=== PATIENT | male | born 1940 | race Caucasian/White ===

== ENCOUNTER → 2017-10-01 | Outpatient (CLI) | payer MEDICARE ==
--- NOTE | 2017-10-01 11:33 | US ---
EXAMINATION TYPE: US kidneys/renal and bladder DATE OF EXAM: 10/01/2017 COMPARISON: NONE CLINICAL HISTORY: Chronic kidney disease Stage 3 N18.3. CKD, pt has no complaints at this time EXAM MEASUREMENTS: Right Kidney: 9.2 x 4.1 x 4.9 cm Left Kidney: 9.6 x 4.9 x 4.8 cm Right Kidney: ?Cortical thinning, otherwise appeared wnl Left Kidney: ?Cortical thinning, otherwise appeared wnl Bladder: wnl Bilateral Jets seen: Yes Incidental finding possible GB polyp There is no evidence for hydronephrosis at this point in time. No nephrolithiasis is seen. No ivon s are identified. The urinary bladder is anechoic. Bilateral ureteral jets are seen. IMPRESSION: 1. Renal parenchymal thinning is noted. 2. Incidental finding of gallbladder polyp.
== END | disposition home or self-care (01) ==
LOC: RADUSWWP 10:54
PROVIDERS: ATTEND Internal Medicine Nephrology
DX: N28.89 Other specified disorders of kidney and ureter (principal); N18.3 Chronic kidney disease, stage 3 (moderate)
CPT/HCPCS: 76770

== ENCOUNTER → 2017-12-06 | Outpatient (CLI) | payer MEDICARE ==
--- NOTE | 2017-12-06 23:50 | MR ---
EXAMINATION TYPE: MR brain wo/w con DATE OF EXAM: 12/06/2017 COMPARISON: NONE HISTORY: Confusion and Dizzy, Gadavist 7.5 TECHNIQUE: Multiplanar, multisequence images of the brain and brainstem is performed without and with IV contras t, utilizing 7.5 mL intravenous Gadavist . FINDINGS: There is diffuse cerebral cortical atrophy. There is enlargement of the ventricles. There is no mass effect nor midline shift. There is no sign of intracranial hemorrhage. There is thinning of the corpu s callosum. I see no evidence of a cortical infarct. There are a few scattered high signal foci at th e sparks-white matter junction of both cerebral hemispheres that measure up to 5 mm. Total lumbars less than 10. There is mild linear increased signal in the subependymal white matter around the lateral v entricles. Brainstem has normal signal pattern. There is some mucosal thickening in the ethmoid front al and sphenoid sinuses. There is also involvement of right maxillary sinus. I see no pathologic enha ncement. IMPRESSION: Cerebral atrophy. Enlarged ventricles without evidence of obstruction. White matter rojas es consistent with mild hydrocephalus and chronic small vessel ischemia. No evidence of cortical infa rct. Mild pansinusitis.
== END | disposition home or self-care (01) ==
LOC: RADMRIMAIN 15:17
PROVIDERS: ATTEND Family Medicine
DX: G31.9 Degenerative disease of nervous system, unspecified (principal); G93.89 Other specified disorders of brain; R90.82 White matter disease, unspecified
CPT/HCPCS: 70553; A9581

== ENCOUNTER → 2018-06-14 | Outpatient (CLI) | payer MEDICARE ==
--- NOTE | 2018-06-14 16:00 | NM ---
EXAMINATION TYPE: NM DatScan Brain SPECT DATE OF EXAM: 06/14/2018 COMPARISON: NONE HISTORY: Parkinson's disease TECHNIQUE: 10 drops of Lugol's solution was administered 1 hour prior to injection as a thyroid bloc wild agent. After the administration of 4.37 mCi I-123 Ioflupane DaTscan. Images obtained 3 hours p ost injection. SPECT images of the brain were acquired with axial and coronal reconstructions. FINDINGS: There is normal uptake of the radiopharmaceutical within the striatum. Normal comma-shape activity is present and is symmetric. IMPRESSION: Normal JONH scan
== END | disposition home or self-care (01) ==
LOC: RADNMMAIN 10:39
PROVIDERS: ATTEND Psychiatry & Neurology Neurology
DX: G20 Parkinson's disease (principal); G91.9 Hydrocephalus, unspecified
CPT/HCPCS: 78607; A9584

== ENCOUNTER → 2018-07-01 | Outpatient (CLI) | payer MEDICARE ==
--- NOTE | 2018-07-01 23:21 | MR ---
EXAMINATION TYPE: MR cervical spine wo con DATE OF EXAM: 07/01/2018 COMPARISON: HISTORY: Abnormal gait, Parkinsons TECHNIQUE: Multiplanar, multisequence images of the cervical spine were acquired. The cervical vertebra have normal alignment. There is degenerative disc space narrowing from C3 to C7 . There is posterior endplate spur formation at C3-4 C4-5 with some encroachment on the spinal canal. The spinal canal is narrowed to 5 to 6 mm at C4-5 due to posterior spurring of the endplates as well as posterior ligament thickening. Cervical spinal cord shows no edema. There is slight flattening of the cord. There is no paraspinal mass. Brainstem is intact. There is no compression fracture.. IMPRESSION: Moderate multilevel spondylosis. There is C4-5 5 to 6 mm spinal stenosis.
== END ==
LOC: RADMRIMAIN 21:21
PROVIDERS: ATTEND Psychiatry & Neurology Neurology
DX: M48.02 Spinal stenosis, cervical region (principal); M47.812 Spondylosis without myelopathy or radiculopathy, cervical region; G20 Parkinson's disease
CPT/HCPCS: 72141

== ENCOUNTER → 2018-07-14 | Outpatient (CLI) | payer MEDICARE ==
--- NOTE | 2018-07-14 14:42 | CONS ---
CONSULTATION DATE OF SERVICE: 07/14/2018 A 78-year-old gentleman has been evaluated in the [facility] for significant excessive daytime sleepiness, snoring, and possible obstructive sleep apnea-hypopnea syndrome. HISTORY OF PRESENT ILLNESS/SLEEP-WAKE EVALUATION: Patient usual sleep schedule from 10 to 12 midnight until 8 a.m. He does have problem with falling asleep, has TV set in bedroom, usually sleeps on the side position. According to his , he snores and he wakes up from sleep 3 times with dry mouth and nocturia. During the day he has difficulties to pay attention, problem with concentration, anxiety, sexual dysfunction. [place] Sleepiness Scale significantly increased to 12. PAST MEDICAL HISTORY: Positive for tremor, was under evaluation for Parkinson disease by testing it was allowed. Anxiety, gout, balance problems, hypertension, coronary artery disease, heart attack in 2007, status post hyperlipidemia. PAST SURGICAL HISTORY: Right knee replacement, cardiac procedure in 2007. At that time, it was try tried to do the stent insertion to main artery, but according to family, probably it was not possible to do. MEDICATIONS: Carbidopa levodopa at the present time, allopurinol, carvedilol, citalopram, clopidogrel, losartan, niacin, pravastatin, spironolactone, tyrosine, vitamin D3 supplement. SOCIAL HISTORY: Negative for smoking or using alcohol. FAMILY HISTORY: Heart problems, stroke, arthritis, pneumonia, cancer, diabetes. REVIEW OF SYSTEMS: Awakenings from sleep, tiredness, sleepiness during the day. Difficulty to concentrate, anxiety. During physical exam, a 78-year-old gentleman without distress. BP 103/59, pulse 55, RR 18, height 5, 5, weight 175.8, temperature 97.5, body mass index 29.1. Oxygen saturation on room air 99%. OROPHARYNX: Extremely low position of soft palate. Slight restriction of nasal breathing. Neck 16-1/2 inches in circumference. NP: Unsteady gait, tremor. Neck Supple, no JVD. Thyroid is not palpable. LUNGS Clear to percussion and to auscultation. Good air exchange. No wheezing or rhonchi. HEART S1, S2 regular. No murmurs, gallops, or rubs. ABDOMEN Soft and nontender. Bowel sounds are present. No organomegaly appreciated. EXTREMITIES No clubbing or cyanosis. IMPRESSION: 1. Snoring, multiple awakenings from sleep with dry mouth and nocturia. 2. Extremely low position of soft palate. 3. Sleepiness. [place] Sleepiness Scale increased to 12. 4. Obstructive sleep apnea-hypopnea syndrome. 5. Anxiety. 6. Hypertension. 7. Coronary artery disease, status post heart attack in 2007. 8. Tremors. 9. Balance problems. 10.Gout. 11.Status post total right knee replacement. 12.Hyperlipidemia. PLAN: 1. Polysomnography for evaluation of patient's breathing during sleep. 2. CPAP/BiPAP titration if sleep study confirms obstructive sleep apnea-hypopnea syndrome. 3. Preferable position during sleep on the side. 4. No driving if patient feels any sleepiness. 5. I will see patient for follow up visit to explain results of testing and following plan. Thank you very much for referring this patient for consultation. Sincerely, Jeremiah Sanchez MD, PhD, FAASM Diplomat of [employer] [employer] [employer] Equipment Worker of [facility] [place] MMODL / ONDINAN: [id number] /
== END | disposition home or self-care (01) ==
LOC: SLEEP 13:10
PROVIDERS: ATTEND Internal Medicine
DX: G47.33 Obstructive sleep apnea (adult) (pediatric) (principal); F41.9 Anxiety disorder, unspecified; I10 Essential (primary) hypertension; I25.10 Atherosclerotic heart disease of native coronary artery without angina pectoris; I25.2 Old myocardial infarction; R25.1 Tremor, unspecified; R26.89 Other abnormalities of gait and mobility; M10.9 Gout, unspecified; E78.5 Hyperlipidemia, unspecified; Z96.651 Presence of right artificial knee joint; Z79.02 Long term (current) use of antithrombotics/antiplatelets; Z79.899 Other long term (current) drug therapy
CPT/HCPCS: 99211

== ENCOUNTER → 2018-09-15 | Outpatient (CLI) | payer MEDICARE ==
--- NOTE | 2018-09-15 15:29 | XR ---
EXAMINATION TYPE: XR chest 2V DATE OF EXAM: 09/15/2018 COMPARISON: 08/26/2016 HISTORY: Shortness of breath TECHNIQUE: Frontal and lateral views of the chest are obtained. FINDINGS: Scattered senescent parenchymal changes noted. Hyperinflation compatible with COPD. No evidence for infiltrate. No evidence for atelectasis. Heart size is stable. Mediastinal structures are stable and grossly unremarkable. No evidence for hilar prominence. Degenerative changes dorsal spine. IMPRESSION: 1. No evidence for acute pulmonary disease.
== END | disposition home or self-care (01) ==
LOC: RADXRYALE 15:13
PROVIDERS: ATTEND Physician Assistant Medical
DX: R05 Cough (principal)
CPT/HCPCS: 71046

== ENCOUNTER → 2018-11-03 | Outpatient (CLI) | payer MEDICARE ==
--- NOTE | 2018-11-03 12:24 | SFUN ---
SLEEP CENTER FOLLOW UP NOTE DATE OF SERVICE: 11/03/2018 A 78-year-old gentleman who has been followed in the Sleep Center for treatment of obstructive sleep apnea-hypopnea syndrome. Recently, patient has been diagnosed with obstructive sleep apnea-hypopnea syndrome; apnea-hypopnea index 26.3, and after that he had CPAP titration. I discussed results of sleep studies with the patient and family in detail. Today is his first visit after he was started on treatment with CPAP. Patient is able to use CPAP equipment practically every night without significant problems related to mask fitting, pressure or humidification. I checked his CPAP unit, range of the pressure 5-15. Most of the time pressure is 11.6. Usage is 100% of the nights and 28/30 nights for more than 4 hours. Average usage is 6.7 hours. Leak is 18 L/minute, which is borderline. Apnea-hypopnea index for the last month 6.2 for the last night, 4.1, which is borderline to normal. [address] Sleepiness Scale today is 9. MEDICATIONS: Allopurinol, carvedilol, citalopram, clopidogrel, losartan, niacin, pravastatin, spironolactone, terazosin, carbidopa levodopa, bumetanide. PHYSICAL EXAM: Patient in no distress, BP 102/48, HR 59, RR 18, weight 178.8, temperature 98.1, oxygen saturation at room air 96%. OROPHARYNX: Extremely low position of soft palate. Mallampati IV. ABDOMEN: Slightly obese, Neck Supple, no JVD. Thyroid is not palpable. LUNGS Clear to percussion and to auscultation. Good air exchange. No wheezing or rhonchi. HEART S1, S2 regular. No murmurs, gallops, or rubs. EXTREMITIES No clubbing or cyanosis. TRANSISTOR TESTER Awake, alert, and oriented X3. Cranial nerves 2 to 7 intact. There is no fasciculation or atrophy. noted. No focal deficits observed. IMPRESSION: 1. Moderate obstructive sleep apnea-hypopnea syndrome; apnea-hypopnea index 26.3 with oxygen saturation to 87.5%, mostly on control with CPAP. Patient demonstrated great compliance with treatment benefitting from treatment. 2. Periodic limb movements have been documented during the titration. Clinically, no significant problems related to leg movements at night. 3. Anxiety. 4. Hypertension. 5. Coronary artery disease, status post heart attack in 2007. 6. History of tremor. 7. History of balance problems. 8. Gout. 9. Status post right knee total replacement. 10.Hyperlipidemia. PLAN: 1. Patient will continue to use CPAP equipment every night for the whole night. I will decrease maximal pressure to 13. 2. Watching and losing weight. 3. Sleep hygiene with regular time in bed for at least 8 hours. 4. No driving if feeling sleepiness. 5. I will maintain all necessary prescription for CPAP supplies including mask, tube, filters. Thank you very much for allowing me to participate in the management of your patient. Sincerely Jeremiah Sanchez MD, PhD, FAASM Diplomat of [employer] Service Engineer of [facility] [place] MMODL / IJN: [id number] /
== END | disposition home or self-care (01) ==
LOC: SLEEP 10:34
PROVIDERS: ATTEND Internal Medicine
DX: G47.33 Obstructive sleep apnea (adult) (pediatric) (principal); G47.61 Periodic limb movement disorder; F41.9 Anxiety disorder, unspecified; I10 Essential (primary) hypertension; I25.10 Atherosclerotic heart disease of native coronary artery without angina pectoris; I25.2 Old myocardial infarction; M10.9 Gout, unspecified; E78.5 Hyperlipidemia, unspecified; Z86.69 Personal history of other diseases of the nervous system and sense organs; Z99.89 Dependence on other enabling machines and devices; Z96.651 Presence of right artificial knee joint; Z79.02 Long term (current) use of antithrombotics/antiplatelets; Z79.899 Other long term (current) drug therapy

== ENCOUNTER → 2019-01-23 | Outpatient (CLI) | payer MEDICARE ==
[2019-01-23 16:47] LABS: Basophils # (A) 0.1 k/uL (0-0.2); Basophils % (A) 1 %; Eosinophils # (A) 0.4 k/uL (0-0.7); Eosinophils % (A) 4 %; HCT 34.5 % (39.0-53.0); HGB 11.6 gm/dL (13.0-17.5); Lymphocytes # (A) 2.9 k/uL (1.0-4.8); Lymphocytes % (A) 29 %; MCH 30.4 pg (25.0-35.0); MCHC 33.6 g/dL (31.0-37.0); MCV 90.4 fL (80.0-100.0); Mean Platelet Volume 8.5; Monocytes # (A) 0.5 k/uL (0-1.0); Monocytes % (A) 5 %; Neutrophils # (A) 5.7 k/uL (1.3-7.7); Neutrophils % (A) 58 %; Platelet Count 204 k/uL (150-450); RBC 3.82 m/uL (4.30-5.90); RDW 14.2 % (11.5-15.5); WBC 9.8 k/uL (3.8-10.6)
[2019-01-23 16:57] LABS: Partial Thromboplastin Time 23.4 sec (22.0-30.0); Prothrombin Time 10.6 sec (9.0-12.0)
[2019-01-23 17:01] LABS: Calcium 9.5 mg/dL (8.4-10.2); Potassium 5.1 mmol/L (3.5-5.1)
[2019-01-23 17:19] LABS: Appearance,Urine Clear (Clear); Bilirubin,Urine Negative (Negative); Blood,Urine Negative (Negative); Color,Urine Light Yellow; Glucose,Urine (UA) Negative (Negative); Ketones,Urine Negative (Negative); Leukocyte Esterase,Urine Negative (Negative); Nitrite,Urine Negative (Negative); PH, Urine 5.5 (5.0-8.0); Protein,Urine Negative (Negative); Specific Gravity,Urine 1.013 (1.001-1.035); Urobilinogen,Urine <2.0 mg/dL (<2.0)
--- NOTE | 2019-01-24 08:15 | XR ---
EXAMINATION TYPE: XR chest 2V DATE OF EXAM: 01/23/2019 COMPARISON: 09/15/2018 HISTORY: Presurgical evaluation. Low back pain, left hip pain. TECHNIQUE: Frontal and lateral views of the chest are obtained. FINDINGS: There is no focal air space opacity, pleural effusion, or pneumothorax seen. The cardiac silhouette size is mildly enlarged. The osseous structures are intact. Multilevel degenerative maza ges seen of the thoracic spine. Moderate degenerative changes of the shoulders are also seen bilatera lly. IMPRESSION: No acute cardiopulmonary process.
== END | disposition home or self-care (01) ==
LOC: LABWHC1 15:51
PROVIDERS: ATTEND Orthopaedic Surgery Orthopaedic Surgery of the Spine
DX: Z01.818 Encounter for other preprocedural examination (principal); M48.02 Spinal stenosis, cervical region; Z01.812 Encounter for preprocedural laboratory examination; Z79.01 Long term (current) use of anticoagulants
CPT/HCPCS: 36415; 71046; 80048; 81003; 85025; 85610; 85730

== ENCOUNTER 2019-02-01 06:14 | Day surgery (SDC) | payer MEDICARE ==
[~2019-02-01 06:14] MED LIST: BACITRACIN 50,000 UNIT, POLYMYXIN B 500,000 UNIT in SODIUM CHLORIDE 0.9% IRRIGATIO 1,00... IRRIGATION ONE; DEXAMETHASONE SOD PHOSPHATE 10 MG/ML 1 ML VIAL IV ONE; HYDROmorphone 0.5 MG/0.5 ML SYRINGE IVP PRN; LIDOCAINE 1% 20 ML VIAL (10MG/ML) FOR IV START INTRADERMA PRN; MIDAZOLAM (PF) 2 MG/2 ML VIAL IV PRN; ONDANSETRON 4 MG/2 ML VIAL IVP ONE; SCOPOLAMINE 1.5MG/72HR PATCH TRANSDERM ONE; ceFAZolin IN SWFI 2 GM/20 ML SYRINGE IVP ONE
[2019-02-01] MEDS: LACTATED RINGERS 1,000 ML IV SCH (06:52)
[2019-02-01] MEDS ORDERED: ePHEDrine SULFATE/0.9% NACL/PF 50 MG/5 ML SYRINGE IV ONE (07:30)
[2019-02-01] MEDS ORDERED: LIDOCAINE 1% INJ 10MG/ML (20 ML MDV) ONE (07:30)
[2019-02-01] MEDS ORDERED: MIDAZOLAM 2 MG/2 ML VIAL ONE (07:30)
[2019-02-01] MEDS ORDERED: GLYCOPYRROLATE 0.2 MG/ML 2 ML VIAL ONE (07:30)
[2019-02-01] MEDS ORDERED: PROPOFOL 10 MG/ML 20 ML VIAL IV ONE (07:30)
[2019-02-01] MEDS ORDERED: DEXAMETHASONE SOD PHOS (MDV) 100 MG/10 ML VIAL ONE (07:30)
[2019-02-01] MEDS ORDERED: PHENYLEPHRINE-0.9% NACL SYG 1 MG/10 ML SYRINGE ONE (07:30)
[2019-02-01] MEDS ORDERED: NEOSTIGMINE 1 MG/ML 10 ML VIAL ONE (07:30)
[2019-02-01] MEDS ORDERED: SUCCINYLCHOLINE CHLORIDE 100 MG/5 ML SYR IV ONE (07:30)
[2019-02-01] MEDS ORDERED: ROCURONIUM BROMIDE 10 MG/ML 10 ML VIAL IV ONE (07:30)
[2019-02-01] MEDS ORDERED: fentaNYL (PF) 50 MCG/ML 2 ML AMP ONE (07:30)
[2019-02-01] MEDS ORDERED: LIDOCAINE 0.5%-EPI 1:200,000 50 ML VIAL SQ ONE (07:50)
[2019-02-01] MEDS ORDERED: THROMBIN (BOVINE) 5,000 UNIT VIAL TOPICAL ONE (07:50)
[2019-02-01] MEDS ORDERED: GELATIN SPONGE,ABSORB (LARGE) 1 EACH SPONGE TOPICAL ONE (07:50)
--- NOTE | 2019-02-01 09:15 | XR ---
EXAMINATION TYPE: XR cervical spine 1V DATE OF EXAM: 02/01/2019 COMPARISON: NONE HISTORY: 78-year-old male needle placement TECHNIQUE: Single crosstable lateral view in the OR FINDINGS: Patient is intubated. Surgical needle is present in the anterior C4-C5 disc interspace. Moderate to s evere spondylotic changes demonstrated C3-C5 levels. IMPRESSION: Metal surgical needle in the anterior C4-C5 disc interspace.
[2019-02-01] MEDS ORDERED: LACTATED RINGERS 1,000 ML IV ONE (09:17)
[2019-02-01] MEDS ORDERED: HYDROcodone/APAP 5-325MG 1 EACH TAB PO PRN (09:45)
[2019-02-01] MEDS ORDERED: ONDANSETRON 4 MG/2 ML VIAL IVP PRN (09:45)
[2019-02-01] MEDS ORDERED: BENZOCAINE/MENTHOL LOZENG 1 EACH LOZENGE MUCOUS MEM PRN (09:45)
[2019-02-01] MEDS ORDERED: HYDROmorphone 0.5 MG/0.5 ML SYRINGE IVP PRN (09:45)
[2019-02-01] MEDS ORDERED: CALCIUM CARBONATE 500 MG CHEWABLE PO PRN (09:46)
--- NOTE | 2019-02-01 09:51 | XR ---
EXAMINATION TYPE: XR cervical spine 1V DATE OF EXAM: 02/01/2019 COMPARISON: Earlier today HISTORY: 78-year-old male hardware evaluation TECHNIQUE: Single crosstable lateral intraoperative view FINDINGS: The patient remains intubated. Interval placement of C3-C5 ACDF hardware. Trace grade 1 anterolisthes is C5-C6 C7 present previously as well. IMPRESSION: Interval placement of C3-C5 ACDF hardware.
--- NOTE | 2019-02-01 09:57 | P.OP ---
Date of Procedure: 02/01/19 Preoperative Diagnosis: Cervical myelopathy, myelomalacia cervical spine, severe cervical stenosis C3 4 C4 5, degenerative disc disease, upper extremity radiculopathy with weakness, gait disturbance due to cervical myelopathy Postoperative Diagnosis: Same Anesthesia: GETA Pathology: none sent Condition: stable Disposition: PACU Description of Procedure: BRIEF OPERATIVE NOTE Preoperative Diagnosis:Cervical myelopathy, myelomalacia cervical spine, severe cervical stenosis C3 4 C4 5, degenerative disc disease, upper extremity radiculopathy with weakness, gait disturbance due to cervical myelopathy Postoperative Diagnosis: Same Procedure: Anterior cervical decompression with discectomy and fusion C3 4 C4 5 Placement of interbody graft C3 4 C4 5 Application of anterior cervical plate C3 4 5 Surgeon: Dr. Fowler Warp Tier: Jermaine PALACIO who is present throughout the entire the case persistence during positioning, dissection, exposure, visualization, and all crucial elements of the case as well as closure. Anesthesia: General anesthesia per Dr. Jeffries Estimated blood loss: Less than 50 mL Complications: None apparent Components implanted: K2M Dickinson anterior cervical plate size 36 mm with 14 mm screws and Vikos interbody allograft bone graft and 1 mL of DBX bone putty supplement interbody bone graft Disposition: To recovery room in good stable condition. OPERATIVE INDICATIONS The patient has multiple medical issues including chronic renal disease, heart disease I blood pressure and Parkinson's. He is a advanced age medically due to his multiple medical issues. Postop we felt management will require inpatient admittance to the hospital as the patient has these multiple medical issues and severe hindrance to his ability to ambulate and function on his own as well as his need for close monitoring and medical attention given his significant surgery. The patient has had long-standing issues in their neck and upper extremities. Patient was having severe difficulty with his mobilization ambulation as well as the function of his upper extremities. He is having worsening of his issues. He is found to have severe stenosis at C3 4 and C4 5 with significant cord distortion and stenosis. There is evidence of some myelomalacia at his spinal cord. He had many symptoms correlated with myelopathy at his upper extremities and with his mobilization and ambulation and was having worsening of his symptoms despite conservative care. The patient has been through conservative treatment. We discussed various treatment options including surgery, and the patient wishes to proceed with surgery We discussed the risk, patient's alternatives and benefits of surgery including but not limited to, risk of bleeding risk of infection, risk of need for further surgery, risk of decreased, loss of motion, muscle function, malunion nonunion, hardware failure, nerve damage, paralysis, heart attack, and . The patient and his family understand that decompression will give the spinal cord and opportunity to take improvement but in no is a guarantee that he will recover all of his function. OPERATIVE SUMMARY After discussing all the risks, patient alternatives and benefits at length, the patient elected to proceed with surgical intervention, signed informed consent, and presented for their procedure. The patient was seen and examined in the preoperative holding area and the surgical site was marked. The patient was given antibiotics and brought to the operating room. The patient was positioned on the operating room table in a supine position being careful to pad any bony prominences and pressure points. The patient was sedated and intubated by anesthesia in standard fashion. Once the airway and C- spine were stabilized the patient's arms were padded and tucked at her side, with her shoulders gently taped. The head was placed in a donut pad with the neck in good neutral alignment and position. We were careful to maintain the patient's cervical spine and good neutral alignment and position throughout. The patient was prepped and draped in a normal standard fashion. An appropriate timeout and keystone protocol performed. We were able to proceed with the surgery. The local wound area was infiltrated with local anesthetic. An incision was made transversely approximately 2-1/2 cm over the appropriate levels at C for. Dissection was taken down subcutaneously to the level of the platysma which was split in line with its fibers. Dissection was taken with a carotid approach, with the trachea and esophagus medial and the carotid sheath laterally. We dissected down to the anterior surface of the vertebral bodies. Intraoperative x-ray was taken which showed a marker at the appropriate level of C4 5. With the appropriate level positively confirmed, we were able to proceed with discectomy at the appropriate levels first at C4 5 and then at C3 4. All of the operative levels were exposed appropriately. The patient had all their twitches back, and there was no evidence of recurrent laryngeal issue. The wound was copiously irrigated and suctioned dry as had been done periodically throughout the case. At the appropriate level/levels, starting at C4 5 and then moving to C5 3 4 I established an annulotomy with an 11 blade scalpel. A discectomy was performed with a combination of pituitary rongeurs, curettes, a high-speed bur, and Kerrison rongeurs. The disc at each level was essentially completely eroded and there was [id number] articulation at the interbody space of C4 5 and at C3 4. There were large anterior posterior osteophytes which were taken down as well. After removal of the posterior osteophytes there was still evidence of further stenosis. The posterior longitudinal ligament was taken down as were any posterior osteophytes. This gave good central and bilateral foraminal decompression. There is no evidence of any dural tear or leak. The endplates were prepared with a high-speed bur. With the endplates in good parallel position, I was able to size for the appropriate size interbody graft. The wound was irrigated and suctioned dry the graft was prepared and malleted into position. It had good alignment and position with the anterior surface flush with the anterior surface of the vertebral bodies at C3 4 and 5. This was done similarly the appropriate levels. With the grafts intact, I was able to measure and contour and appropriate sized plate. The plate was positioned at the midline over the appropriate levels at C3 4 and 5. Screw holes were established with a hand drill and drill guide. Screws were placed in good alignment and position with excellent bony purchase. They were seated under the locking device. The construct was checked and found to be stable. Intraoperative x-ray was taken which showed good alignment and position of the implants at the appropriate levels at C3 4 5. There was no mary dence of any dural tear or leak. Good hemostasis was maintained. The wound was copiously irrigated and suctioned dry as had been done periodically throughout the case. The platysma was closed with absorbable suture. The subcutaneous tissue was closed. The subcuticular tissue was closed with absorbable suture. The wound was cleaned and dried and dressed appropriately. A soft cervical collar was placed appropriately. The patient was woken up by anesthesia, extubated, transferred back gently to their hospital bed and brought to the recovery room in good stable condition. The patient will be admitted to the hospital for appropriate postoperative care, medical management and monitoring. We will continue to follow them closely about the postoperative course.
[2019-02-01 14:34] VITALS: BMI 28.0
[2019-02-01] MEDS: ceFAZolin IN SWFI 2 GM/20 ML SYRINGE IVP SCH (19:09)
[2019-02-01] MEDS: CARVEDILOL 3.125 MG TAB PO SCH (19:09)
[2019-02-01] MEDS: SODIUM CHLORIDE 0.9% 1,000 ML IV SCH (19:56)
[2019-02-01] MEDS ORDERED: PRAVASTATIN SODIUM 40 MG TAB PO SCH (21:00)
[2019-02-02] MEDS: ceFAZolin IN SWFI 2 GM/20 ML SYRINGE IVP SCH (00:07)
[2019-02-02] MEDS: SODIUM CHLORIDE 0.9% 1,000 ML IV SCH ×2 (00:21→12:15)
[2019-02-02] MEDS: LACTATED RINGERS 1,000 ML IV SCH (05:32)
[2019-02-02] MEDS: CARVEDILOL 3.125 MG TAB PO SCH (08:07)
[2019-02-02] MEDS ORDERED: BUMETANIDE 1 MG TAB PO SCH (09:00)
[2019-02-02] MEDS ORDERED: CHOLECALCIFEROL 1,000 UNIT TAB PO SCH (09:00)
[2019-02-02] MEDS ORDERED: CLOPIDOGREL 75 MG TAB PO SCH (09:00)
[2019-02-02] MEDS ORDERED: SPIRONOLACTONE 25 MG TAB PO SCH (09:00)
[2019-02-02] MEDS ORDERED: ALLOPURINOL 100 MG TAB PO SCH (09:00)
[2019-02-02] MEDS ORDERED: NIACIN TR 500 MG CAPLET PO SCH (09:00)
[2019-02-02] MEDS ORDERED: DOXAZOSIN 4 MG TAB PO SCH (09:00)
[2019-02-02] MEDS ORDERED: LOSARTAN 25 MG TAB PO SCH (09:00)
[2019-02-02] MEDS ORDERED: CITALOPRAM HYDROBROMIDE 20 MG TAB PO SCH (09:00)
[2019-02-02] MEDS ORDERED: SENNOSIDES-DOCUSATE SODIUM 1 EACH TAB PO SCH (09:00)
--- NOTE | 2019-02-02 11:47 | P.DS ---
Providers Date of admission: 02/01/2019 Expected date of discharge: 02/02/19 Attending physician: Zachary Fowler Primary care physician: Billy Yang - Discharge Diagnosis(es) (1) Cervical myelopathy Current Visit: Yes Status: Acute (2) Cervical cord myelomalacia Current Visit: Yes Status: Acute (3) Cervical stenosis of spinal canal Current Visit: Yes Status: Acute (4) Disc disease, degenerative, cervical Current Visit: Yes Status: Acute (5) Upper extremity weakness Current Visit: Yes Status: Acute (6) Radiculopathy affecting upper extremity Current Visit: Yes Status: Acute (7) Unsteady gait Current Visit: Yes Status: Acute (8) Status post cervical spinal fusion Current Visit: Yes Status: Acute (9) History of heart disease Current Visit: Yes Status: Acute (10) History of hypertension Current Visit: Yes Status: Acute (11) History of hyperlipidemia Current Visit: Yes Status: Acute (12) History of diabetes mellitus Current Visit: Yes Status: Acute Hospital Course: This is a pleasant 78-year-old male who presented with cervical myelopathy, cervical myelomalacia, C3-4 and C4-5 severe spinal canal stenosis and degenerative disc disease with upper extremity radiculopathy with weakness and gait abnormality due to cervical myelopathy who and failed outpatient conservative therapy. He was admitted for a C3-4 and C4-5 anterior cervical decompression and fusion. The patient tolerated the procedure well and did well postoperatively. He initially had some difficulty with voiding last evening. He states straight catheterization was performed which proximally thousand mill iliters of residual urine was removed. Since that time he has been able to urinate on his own in the bathroom without any significant difficulty. He has had some soreness of his throat but has been able to eat and drink without difficulty. He feels his pain is been adequately controlled. He is not currently complaining of any significant cervical pain or upper extremity pain. He feels he is ready for discharge today. Condition on day of discharge stable. Patient will be discharged home. Patient was cleared preoperatively for surgery by Dr. Yang. Patient currently denies any nausea, vomiting, fever, or chills. Patient is eating and voiding freely without difficulty. Patient may shower Tegaderm dressing intact. Patient may remove Tegaderm dressing in 3 days and shower without a dressing at that time. Patient should keep Steri- Strips intact and allow them to fall off naturally. Patient should refrain from driving until at least after their first follow-up appointment in the office. Patient should avoid excessive neck flexion, extension, rotation, and lateral sidebending; no overhead lifting; no lifting greater than 10 pounds. He may wear a soft cervical collar for comfort support as needed. Patient may resume other previously prescribed home medications while avoiding anti-inflammatories over the next 6 weeks postoperatively. MAPS has been reviewed today, 02/02/2019, with an Overall Overdose Risk Score of 230 and a narcotic score of 50. An "Opiod Start Talking" Forn has been signed by the patient and myself in place in the patient's chart. A prescription has been written for [place] 5 mg/325 mg 1 tablet every 8 hours as needed for pain, dispense #28. Patient has had a medical history which includes heart disease, hypertension, hyperlipidemia, diabetes, and unsteady gait Physical Exam on day of discharge: Patient is awake, alert, and oriented 3 Vital signs stable Good chest excursion with deep inspiration and expiration Abdomen soft nontender No signs or symptoms of DVT; no calf pain Active range of motion of the cervical spine with adequate flexion, extension, and bilateral rotation Solutions Engineer strength, thumb strength, interosseous strength, biceps strength, triceps strength, and shoulder strength positive sustained bilaterally Evidence of chronic changes at the left hand with some myelopathic change Soft cervical collar intact Incision is dry and intact with one small area of dried blood; no erythema, purulence, or signs of infection Tegaderm dressing and non-stick Telfa intact Procedures: C3-4 and C4-5 anterior cervical decompression and fusion Patient Condition at Discharge: Stable Plan - Discharge Summary Discharge Rx Participant: Yes New Discharge Prescriptions: New HYDROcodone/APAP 5-325MG [[place] 5] 1 each PO Q6HR PRN #28 tab PRN Reason: Pain No Action Pravastatin Sodium [Pravachol] 40 mg PO HS Cholecalciferol [Vitamin D3 (25 Mcg = 1000 Iu)] 2,000 unit PO DAILY Terazosin HCl [Hytrin] 10 mg PO QAM Carvedilol [Coreg] 3.125 mg PO BID Clopidogrel [Plavix] 75 mg PO DAILY Citalopram Hydrobromide [CeleXA] 40 mg PO QAM Niacin 500 mg PO DAILY Losartan [Cozaar] 25 mg PO DAILY Bumetanide [Bumex] 1 mg PO DAILY Spironolactone [Aldactone] 12.5 mg PO DAILY Allopurinol [Zyloprim] 100 mg PO DAILY Calcium Carbonate [Tums] 500 - 1,000 mg PO QID PRN PRN Reason: Indigestion Discharge Medication List Carvedilol [Coreg] 3.125 mg PO BID 08/14/16 [History] Cholecalciferol [Vitamin D3 (25 Mcg = 1000 Iu)] 2,000 unit PO DAILY 08/14/16 [History] Citalopram Hydrobromide [CeleXA] 40 mg PO QAM 08/14/16 [History] Clopidogrel [Plavix] 75 mg PO DAILY 08/14/16 [History] Pravastatin Sodium [Pravachol] 40 mg PO HS 08/14/16 [History] Terazosin HCl [Hytrin] 10 mg PO QAM 08/14/16 [History] Niacin 500 mg PO DAILY 08/24/16 [History] Bumetanide [Bumex] 1 mg PO DAILY 11/17/16 [History] Losartan [Cozaar] 25 mg PO DAILY 11/17/16 [History] Spironolactone [Aldactone] 12.5 mg PO DAILY 11/17/16 [History] Allopurinol [Zyloprim] 100 mg PO DAILY 01/27/19 [History] Calcium Carbonate [Tums] 500 - 1,000 mg PO QID PRN 01/27/19 [History] HYDROcodone/APAP 5-325MG [[place] 5] 1 each PO Q6HR PRN #28 tab 02/02/19 [Rx] Follow up Appointment(s)/Referral(s): Jermaine Rodriguez, GERBER [PHYSICIAN [facility]ADD[facility]] - 2 Weeks (Patient may follow-up with Jermaine Rodriguez PA-C or Dr. Jose F Fowler at [facility] in 2-3 weeks following discharge. ) Activity/Diet/Wound Care/Special Instructions: 1. Patient may shower with Tegaderm dressing intact. 2. Patient may remove Tegaderm dressing in 3 days and shower without a dressing at that time. 3. Patient should keep Steri-Strips intact and allow them to fall off naturally. 4. Patient should refrain from driving until at least after their first follow- up appointment in the office. 5. Patient should avoid excessive cervical extension, flexion, rotation, sidebending; avoid overhead lifting;; no lifting greater than 10 pounds 6. May wear soft cervical collar for comfort support as needed 7. Take medications as prescribed 8. Do not soak in tub Discharge Disposition: HOME SELF-CARE
[2019-02-02 16:35] VITALS: BP 121/57; PULSE 58; RESP 16; TEMP 97.8
== END 2019-02-02 16:44 | disposition home or self-care (01) ==
LOC: OR 06:14 → EDSTATUS 07:30 → 4SSUR 09:45 → OR 02-02 16:44
PROVIDERS: ATTEND Orthopaedic Surgery Orthopaedic Surgery of the Spine
DX: M48.02 Spinal stenosis, cervical region (principal); G95.89 Other specified diseases of spinal cord; M50.01 Cervical disc disorder with myelopathy, high cervical region; M50.11 Cervical disc disorder with radiculopathy, high cervical region; M47.12 Other spondylosis with myelopathy, cervical region; M47.22 Other spondylosis with radiculopathy, cervical region; M43.12 Spondylolisthesis, cervical region; M25.78 Osteophyte, vertebrae; G20 Parkinson's disease; I12.9 Hypertensive chronic kidney disease with stage 1 through stage 4 chronic kidney disease, or unspecified chronic kidney disease; E11.22 Type 2 diabetes mellitus with diabetic chronic kidney disease; N18.9 Chronic kidney disease, unspecified; I42.9 Cardiomyopathy, unspecified; E78.5 Hyperlipidemia, unspecified; K21.9 Gastro-esophageal reflux disease without esophagitis; M10.9 Gout, unspecified; I25.10 Atherosclerotic heart disease of native coronary artery without angina pectoris; N40.0 Benign prostatic hyperplasia without lower urinary tract symptoms; I25.2 Old myocardial infarction; E66.3 Overweight; Z68.27 Body mass index [BMI] 27.0-27.9, adult; Z79.84 Long term (current) use of oral hypoglycemic drugs; Z79.02 Long term (current) use of antithrombotics/antiplatelets; Z79.891 Long term (current) use of opiate analgesic; Z79.899 Other long term (current) drug therapy; Z96.659 Presence of unspecified artificial knee joint; Z91.81 History of falling; Z87.891 Personal history of nicotine dependence
CPT/HCPCS: 86900; 86901; 86850; 72020; 22551; 22552; 22845; 20930; C1713 ×2; C1762 ×2; J2250; J2710; J2405; J2001; J3010; J1100; J2370; J0330; J2704; J0690 ×2

== ENCOUNTER → 2019-10-30 | Outpatient (CLI) | payer MEDICARE ==
--- NOTE | 2019-10-30 11:11 | FL ---
EXAMINATION TYPE: FL barium swallow DATE OF EXAM: 10/30/2019 CLINICAL HISTORY: Dysphagia for approximately 3 months TECHNIQUE: A double contrast esophagram is performed utilizing air and barium. A total of 1.27 janice nick of fluoroscopic time was utilized during procedure. 56 fluoroscopic images were saved during the examination. COMPARISON: None FINDINGS: The esophagus shows normal motility and emptying into the stomach. There is a small hiatal hernia see n resulting in mild degree gastroesophageal reflux. No evidence of stricture noted. Surgical fusion of portions of the cervical spine is partially visualized and is incidentally noted. IMPRESSION: Small hiatal hernia resulting in mild gastroesophageal reflux.
== END | disposition home or self-care (01) ==
LOC: RADUSWWP 09:59
PROVIDERS: ATTEND Family Medicine
DX: K44.9 Diaphragmatic hernia without obstruction or gangrene (principal); K21.9 Gastro-esophageal reflux disease without esophagitis; R13.10 Dysphagia, unspecified
CPT/HCPCS: 74220

== ENCOUNTER → 2019-11-27 | Outpatient (CLI) | payer MEDICARE ==
--- NOTE | 2019-11-28 11:01 | XR ---
EXAMINATION TYPE: XR shoulder complete RT DATE OF EXAM: 11/27/2019 COMPARISON: NONE HISTORY: Pain TECHNIQUE: Shoulder examined in 3 projections FINDINGS: The humeral head articulates with the glenoid. There is some elevation of the humeral head in relatio n to the glenoid with narrowing of the acromial humeral joint space. Findings can be compatible with a rotator cuff tear. Clinical correlation is recommended. MRI could be performed as clinically indica liset. The acromio-clavicular junction is normal. No acute fractures or dislocations are evident. A follow up study can be performed 7-10 days from acute trauma for continued pain. IMPRESSION: 1. Clinical correlation recommended for chronic rotator cuff tear on the right. MRI could be performe d for additional evaluation.
== END | disposition home or self-care (01) ==
LOC: RADXRYALE 16:06
PROVIDERS: ATTEND Physician Assistant Medical
DX: M75.101 Unspecified rotator cuff tear or rupture of right shoulder, not specified as traumatic (principal)

== ENCOUNTER 2022-03-17 14:13 | Emergency (ER) | payer MEDICARE ==
[2022-03-17 14:40] VITALS: RESP 18
[2022-03-17] MEDS ORDERED: LORazepam 2 MG/ML INJ IV STA (17:17)
--- NOTE | 2022-03-17 18:52 | XR ---
EXAMINATION TYPE: XR abdomen acute w cxr DATE OF EXAM: 03/17/2022 COMPARISON: NONE HISTORY: Pain TECHNIQUE: 4 views FINDINGS: Heart and mediastinum are normal. Lungs are clear of infiltrate. No pleural effusion. No pe ricardial effusion. Bowel gas pattern is normal. No sign of intestinal obstruction or pneumoperitoneum. Fecal pattern is normal. There is gas down to the rectum. No calcifications seen over the kidneys. IMPRESSION: Nonacute abdomen. Normal chest.
[2022-03-17 19:25] LABS: Basophils # (A) 0.1 k/uL (0-0.2); Basophils % (A) 1 %; Eosinophils # (A) 0.3 k/uL (0-0.7); Eosinophils % (A) 3 %; HCT 39.9 % (39.0-53.0); HGB 13.3 gm/dL (13.0-17.5); Lymphocytes # (A) 2.9 k/uL (1.0-4.8); Lymphocytes % (A) 27 %; MCH 31.9 pg (25.0-35.0); MCHC 33.4 g/dL (31.0-37.0); MCV 95.2 fL (80.0-100.0); Monocytes # (A) 0.6 k/uL (0-1.0); Monocytes % (A) 5 %; Neutrophils # (A) 6.4 k/uL (1.3-7.7); Neutrophils % (A) 61 %; Platelet Count 187 k/uL (150-450); RBC 4.18 m/uL (4.30-5.90); WBC 10.5 k/uL (3.8-10.6)
--- NOTE | 2022-03-17 19:34 | ED ---
General Adult HPI - General Chief complaint: Abdominal Pain Stated complaint: Abd pain Time Seen by Provider: 03/17/22 16:59 Source: patient Mode of arrival: ambulatory Limitations: no limitations - History of Present Illness Initial comments: this 81-year-old male presents with the complaint of some abdominal tightness. He states that this has been a chronic problem for him over the years. It seems like he might of been somewhat worse earlier today. He denies any abdominal pain currently. He denies any nausea or vomiting. He has had some mild loose stools over the past one week. He states that when this abdominal tightness comes on it is usually related to his anxiety. He previously was on Cymbalta but this was stopped several weeks ago. His primary care. I put him on Xanax at night but this was making him too sleepy throughout the day and they stopped this approximately 5 days ago. He denies any fevers or chills. There is no blo od in his stool. He has a long-standing history of significant anxiety. He also relates that he previously had a myocardial infarction and he had somewhat similar abdominal pain during that time. No other complaints or modifying factors. - Related Data Home Medications Medication Instructions Recorded Confirmed Cholecalciferol [Vitamin D3 (25 2,000 unit PO DAILY 08/14/16 02/01/19 Mcg = 1000 Iu)] Citalopram Hydrobromide [CeleXA] 40 mg PO QAM 08/14/16 02/01/19 Clopidogrel [Plavix] 75 mg PO DAILY 08/14/16 02/01/19 Pravastatin Sodium [Pravachol] 40 mg PO HS 08/14/16 02/01/19 Terazosin HCl [Hytrin] 10 mg PO QAM 08/14/16 02/01/19 carvediloL [Coreg] 3.125 mg PO BID 08/14/16 02/01/19 Niacin 500 mg PO DAILY 08/24/16 02/01/19 Bumetanide [Bumex] 1 mg PO DAILY 11/17/16 02/01/19 Losartan [Cozaar] 25 mg PO DAILY 11/17/16 02/01/19 Spironolactone [Aldactone] 12.5 mg PO DAILY 11/17/16 02/01/19 Calcium Carbonate [Tums] 500 - 1,000 mg PO QID PRN 01/27/19 02/01/19 allopurinoL [Zyloprim] 100 mg PO DAILY 01/27/19 02/01/19 Previous Rx's Medication Instructions Recorded HYDROcodone/APAP 5-325MG [[place] 5] 1 each PO Q6HR PRN #28 tab 02/02/19 Allergies Allergy/AdvReac Type Severity Reaction Status Date / Time No Known Allergies Allergy Verified 03/17/22 14:40 Review of Systems ROS Statement: Those systems with pertinent positive or pertinent negative responses have been documented in the HPI. ROS Other: All systems not noted in ROS Statement are negative. Past Medical History Past Medical History: Atrial Fibrillation, Diabetes Mellitus, Hyperlipidemia, H ypertension, Myocardial Infarction ([place]), Osteoarthritis ([place]) Additional Past Medical History / Comment(s): sore lt upper arm,anemia,enlarged prostate,steroids w/in Jun 2016, gout Last Myocardial Infarction Date:: 2008 History of Any Multi-Drug Resistant Organisms: None Reported Past Surgical History: Heart Catheterization Additional Past Surgical History / Comment(s): karel cataracts Past Anesthesia/Blood Transfusion Reactions: No Reported Reaction Past Psychological History: Anxiety Past Alcohol Use History: None Reported Past Drug Use History: None Reported - Past Family History Mother History Unknown: Yes Father History Unknown: Yes General Exam - General Exam Comments Initial Comments: GENERAL: The patient is well nourished and well hydrated. VITAL SIGNS: Heart rate, blood pressure, respiratory rate reviewed as recorded in nurse's notes. EYES: Pupils are round and reactive. Extraocular movements are intact. No conjunctival / lid redness or swelling. ENT: No external evidence of injury, swelling, or ecchymosis. Airway is patent. Throat is clear. NECK: Nontender. No swelling or evidence of injury. No subcutaneous emphysema. Trachea is midline. No thyroid mass. HEART: Regular rate and rhythm. Good peripheral pulses. LUNGS/CHEST: Breath sounds clear and equal bilaterally. No rales, rhonchi, or wheezes. No ecchymosis, subcutaneous emphysema, or tenderness. ABDOMEN: Abdomen soft without tenderness. No palpable masses or organomegaly. No peritoneal signs. No abdominal wall swelling or ecchymosis. EXTREMITIES: No extremity tenderness. Normal muscle tone and function. No tho racolumbar tenderness. NEUROLOGIC: Sensation is grossly intact. Cranial nerve exam reveals face is symmetrical, tongue is midline, speech is clear. SKIN: No abrasions or ecchymosis is noted. No induration or masses noted. PSYCHIATRIC: Alert and oriented. Appears fairly anxious. Limitations: no limitations Course Vital Signs 03/17/22 14:35 Temperature 98.2 F Pulse Rate 57 L Respiratory 18 Rate Blood Pressure 96/46 O2 Sat by Pulse 98 Oximetry Medical Decision Making - Medical Decision Making The patient was seen and examined. All diagnostics are reviewed. EKG was done which is show evidence of atrial fibrillation at a rate of 72. There is no acute ST elevation noted. There is mild artifact noted. The QRS intervals 93, and the QTC intervals 404. He is seen through the emergency department due to overcrowding in understanding issues. The laboratory came back showing some renal insufficiency which is improved as compared to previous. There is some minor electrolyte abnormalities. Remainder of laboratory is all essentially within normal limits. The chest and abdominal x-rays were negative. He is feeling improved on recheck. It is felt as though he likely does have anxiety This probably is the cause of his symptomatology. It is felt as though he is stable for discharge home and close follow-up with his primary care. Return parameters are discussed. - Lab Data Result diagrams: 03/17/22 18:55 03/17/22 18:55 Lab Results 03/17/22 03/17/22 03/17/22 Range/Units 18:55 18:55 18:55 WBC 10.5 (3.8-10.6) k/uL RBC 4.18 L (4.30-5.90) m/uL Hgb 13.3 (13.0-17.5) gm/dL Hct 39.9 (39.0-53.0) % MCV 95.2 (80.0-100.0) fL MCH 31.9 (25.0-35.0) pg MCHC 33.4 (31.0-37.0) g/dL RDW 14.0 (11.5-15.5) % Plt Count 187 (150-450) k/uL MPV 8.0 Neutrophils % 61 % Lymphocytes % 27 % Monocytes % 5 % Eosinophils % 3 % Basophils % 1 % Neutrophils # 6.4 (1.3-7.7) k/uL Lymphocytes # 2.9 (1.0-4.8) k/uL Monocytes # 0.6 (0-1.0) k/uL Eosinophils # 0.3 (0-0.7) k/uL Basophils # 0.1 (0-0.2) k/uL PT 11.6 (9.0-12.0) sec INR 1.1 (<1.2) APTT 25.0 (22.0-30.0) sec Sodium 141 (137-145) mmol/L Potassium 4.3 (3.5-5.1) mmol/L Chloride 108 H (98-107) mmol/L Carbon Dioxide 22 (22-30) mmol/L Anion Gap 11 mmol/L BUN 29 H (9-20) mg/dL Creatinine 1.79 H (0.66-1.25) mg/dL Est GFR (CKD-EPI)AfAm 40 (>60 ml/min/1.73 sqM) Est GFR (CKD-EPI)NonAf 35 (>60 ml/min/1.73 sqM) Glucose 112 H (74-99) mg/dL Calcium 9.0 (8.4-10.2) mg/dL Total Bilirubin 0.9 (0.2-1.3) mg/dL AST 19 (17-59) U/L ALT 16 (4-49) U/L Alkaline Phosphatase 61 (38-126) U/L Troponin I (0.000-0.034) ng/mL Total Protein 7.2 (6.3-8.2) g/dL Albumin 4.7 (3.5-5.0) g/dL Amylase 40 (30-110) U/L Lipase 89 (23-300) U/L 03/17/22 Range/Units 18:55 WBC (3.8-10.6) k/uL RBC (4.30-5.90) m/uL Hgb (13.0-17.5) gm/dL Hct (39.0-53.0) % MCV (80.0-100.0) fL MCH (25.0-35.0) pg MCHC (31.0-37.0) g/dL RDW (11.5-15.5) % Plt Count (150-450) k/uL MPV Neutrophils % % Lymphocytes % % Monocytes % % Eosinophils % % Basophils % % Neutrophils # (1.3-7.7) k/uL Lymphocytes # (1.0-4.8) k/uL Monocytes # (0-1.0) k/uL Eosinophils # (0-0.7) k/uL Basophils # (0-0.2) k/uL PT (9.0-12.0) sec INR (<1.2) APTT (22.0-30.0) sec Sodium (137-145) mmol/L Potassium (3.5-5.1) mmol/L Chloride (98-107) mmol/L Carbon Dioxide (22-30) mmol/L Anion Gap mmol/L BUN (9-20) mg/dL Creatinine (0.66-1.25) mg/dL Est GFR (CKD-EPI)AfAm (>60 ml/min/1.73 sqM) Est GFR (CKD-EPI)NonAf (>60 ml/min/1.73 sqM) Glucose (74-99) mg/dL Calcium (8.4-10.2) mg/dL Total Bilirubin (0.2-1.3) mg/dL AST (17-59) U/L ALT (4-49) U/L Alkaline Phosphatase (38-126) U/L Troponin I <0.012 (0.000-0.034) ng/mL Total Protein (6.3-8.2) g/dL Albumin (3.5-5.0) g/dL Amylase (30-110) U/L Lipase (23-300) U/L Disposition Clinical Impression: Abdominal pain, Anxiety Disposition: HOME SELF-CARE Condition: Good Instructions (If sedation given, give patient instructions): Abdominal Pain (ED), Generalized Anxiety Disorder (ED) Is patient prescribed a controlled substance at d/c from ED?: No Referrals: Billy Yang DO [Primary Care Provider] - 1-2 days Time of Disposition: 20:37
[2022-03-17 19:36] LABS: Albumin 4.7 g/dL (3.5-5.0); Potassium 4.3 mmol/L (3.5-5.1); Total Bilirubin 0.9 mg/dL (0.2-1.3); Total Protein 7.2 g/dL (6.3-8.2)
[2022-03-17 19:39] LABS: INR 1.1 (<1.2); Prothrombin Time 11.6 sec (9.0-12.0)
[2022-03-17 21:02] VITALS: BP 143/55; PULSE 78; TEMP 97.5
== END 2022-03-17 20:57 | disposition home or self-care (01) ==
LOC: EC 14:13
DX: N28.9 Disorder of kidney and ureter, unspecified (principal); F41.9 Anxiety disorder, unspecified; E87.8 Other disorders of electrolyte and fluid balance, not elsewhere classified; E11.9 Type 2 diabetes mellitus without complications; I10 Essential (primary) hypertension; I25.2 Old myocardial infarction; E78.5 Hyperlipidemia, unspecified; I48.91 Unspecified atrial fibrillation; M19.90 Unspecified osteoarthritis, unspecified site; Z79.899 Other long term (current) drug therapy; Z79.84 Long term (current) use of oral hypoglycemic drugs; Z79.02 Long term (current) use of antithrombotics/antiplatelets
CPT/HCPCS: 36415; 74022; 80053; 82150; 83690; 84484; 85025; 85610; 85730; 93005; 99284

== ENCOUNTER → 2022-04-10 | Outpatient (CLI) | payer MEDICARE ==
--- NOTE | 2022-04-10 17:37 | CT ---
EXAMINATION TYPE: CT brain wo con DATE OF EXAM: 04/10/2022 COMPARISON: None HISTORY: Cognitive impairment, AMS. Memory issues. Sent as stat hold and call CT DLP: [address] of the brain was performed. The ventricles, basal cisterns and sulci overlying the cerebral convexities demonstrate moderate enla rgement. Greater central component raises the possibility of normal pressure hydrocephalus. There is no evidence for intracranial hemorrhage or sulcal effacement. There is decreased attenuation about the periventricular white matter and deep white matter of both c erebral hemispheres, compatible with chronic small vessel ischemia. Differential diagnosis does inclu de demyelination. No mass effects are seen.No midline shift. Osseous calvarium is intact. If symptoms persist consider MRI. IMPRESSION: 1. Age related atrophic and chronic small vessel ischemic change without acute intracranial process s een at this time. Correlate for possible normal pressure hydrocephalus.
== END | disposition home or self-care (01) ==
LOC: RADCTMAIN 16:44
PROVIDERS: ATTEND Family Medicine
DX: G31.9 Degenerative disease of nervous system, unspecified (principal); I67.82 Cerebral ischemia
CPT/HCPCS: 70450

== ENCOUNTER → 2022-05-06 | Outpatient (CLI) | payer MEDICARE ==
--- NOTE | 2022-05-06 11:56 | US ---
EXAMINATION TYPE: US carotid duplex BILAT DATE OF EXAM: 05/06/2022 COMPARISON: NONE CLINICAL HISTORY: R41.82 ALTERED MENTAL STATE, I48.11 PERSISTENT ATRIAL FIB. TECHNIQUE: Carotid duplex ultrasound examination. Indirect Doppler criteria was utilized. FINDINGS: EXAM MEASUREMENTS: RIGHT: Peak Systolic Velocity (PSV) cm/sec ----- Right CCA: 79.8 ----- Right ICA: 107.3 ----- Right ECA: 101.7 ICA/CCA ratio: 1.3 RIGHT: End Diastole cm/sec ----- Right CCA: 0.0 ----- Right ICA: 11.7 ----- Right ECA: 0.0 LEFT: Peak Systolic Velocity (PSV) cm/sec ----- Left CCA: 59.0 ----- Left ICA: 64.2 ----- Left ECA: 129.8 ICA/CCA ratio: 1.1 LEFT: End Diastole cm/sec ----- Left CCA: 11.7 ----- Left ICA: 12.7 ----- Left ECA: 0.0 VERTEBRALS (direction of flow): Right Vertebral: Antegrade Left Vertebral: Antegrade Rhythm: Arrhythmia COATER HAND NOTES: Mild to moderate plaque in the bilateral bulbs, right greater than left. No signi ficant stenosis. Diminished vertebral flow. There is a large plaque within the right carotid bulb. A long segment of right carotid bulb plaquing is also evident. Some hard plaque with posterior shadowing is within the left carotid bulb. IMPRESSION: 1. No significant flow-limiting stenosis internal carotid arteries. 2. Some moderate narrowing between 50 and 69% of the left external carotid artery may be present. Criteria for Assigning % of Stenosis / Diameter reduction (Estimation based on the indirect measurements of the internal carotid artery velocities (ICA PSV). 1. Normal (no stenosis)=ICA PSV < 125 cm/s: ratio < 2.0: ICA EDV<40 cm/s. 2. Less than 50% stenosis=ICA PSV < 125 cm/s: ratio < 2.0: ICA EDV<40 cm/s. 3. 50 to 69% stenosis=ICA PSV of 125 to 230 cm/s: ration 2.0 ? 4.0: ICA EDV 40-100 cm/s. 4. Greater than 70% stenosis to near occlusion= ICA PSV > 230 cm/s: ratio > 4.0: ICA EDV > 100 cm/s. 5. Near occlusion= ICA PSV velocities may be low or undetectable: variable ratio and ICA EDV. 6. Total occlusion=unable to detect flow.
--- NOTE | 2022-05-07 08:27 | MR ---
EXAMINATION TYPE: MR brain wo con DATE OF EXAM: 05/06/2022 COMPARISON: None HISTORY: Memory loss CONTRAST: Performed utilizing 0 mL intravenous Gadavist gadolinium contrast. TECHNIQUE: Multiplanar, multiecho imaging on a 3.0 Sonam magnet is performed through the brain. Stud y is performed within 24 hours of arrival to the hospital. The craniovertebral junction is normal. The pituitary is normal. Diffusion-weighted imaging is performed. No abnormal hyperintensity is present to suggest an acute i ntracranial infarct or acute ischemic change. There may be some minimal increased signal on inversion recovery weighted sequences within the brains tem. Periventricular white matter hypodensity is present likely on the basis of chronic white matter ischemic change. Some roque radiata and centrum semiovale deep white matter changes are present. Ventricles and sulci are prominent for the patient age. Lateral ventricles are notably prominent alth ough no temporal horn dilatation is evident. Third ventricle is prominent. Fourth ventricle is midlin e and normal IMPRESSIONS: 1. Atrophy with periventricular white matter ischemic type changes.
== END | disposition home or self-care (01) ==
LOC: RADUSWWP 10:43
PROVIDERS: ATTEND Family Medicine
DX: I65.22 Occlusion and stenosis of left carotid artery (principal); I48.11 Longstanding persistent atrial fibrillation; I25.10 Atherosclerotic heart disease of native coronary artery without angina pectoris
CPT/HCPCS: 70551; 93880

== ENCOUNTER 2022-07-03 22:43 | Inpatient (IN) | payer MEDICARE ==
[2022-07-03] MEDS ORDERED: SODIUM CHLORIDE 0.9% 1,000 ML IV STA (22:59)
--- NOTE | 2022-07-03 23:05 | ED ---
General Adult HPI - General Chief complaint: Abdominal Pain Stated complaint: NVD Time Seen by Provider: 07/03/22 22:53 Source: patient Mode of arrival: EMS Limitations: no limitations - History of Present Illness Initial comments: Dictation was produced using [employer] dictation software. please excuse any grammatical, word or spelling errors. Chief Complaint: 82-year-old male presents emergency department for nausea vomiting diarrhea History of Present Illness: 82-year-old male who presents emergency department for nausea vomiting diarrhea. Patient states that his symptoms have been ongoing for one day. States that his stool is loose watery and brown. He has been feeling more nauseous. Patient states that his emesis is clear. Denies any abdominal pain. He has had some fevers. Patient reports being on antibiotics prescribed to him recently. He is a poor historian on unable to tell me exactly where or when he got these antibiotics. States that he had temperature 100 at home. Patient arrived via EMS. The ROS documented in this emergency department record has been reviewed and confirmed by me. Those systems with pertinent positive or negative responses have been documented in the HPI. All other systems are other negative and/or noncontributory. PHYSICAL EXAM: General Impression: Alert and oriented x3, not in acute distress HEENT: Normocephalic atraumatic, extra-ocular movements intact, pupils equal and reactive to light bilaterally, mucous membranes moist. Cardiovascular: Heart regular rate and rhythm Chest: Able to complete full sentences, no retractions, no tachypnea Abdomen: abdomen soft, non-tender, non-distended, no organomegaly Musculoskeletal: Pulses present and equal in all extremities, no peripheral edema Motor: no focal deficits noted Neurological: CN II-XII grossly intact, no focal motor or sensory deficits noted Skin: Intact with no visualized rashes Psych: Normal affect and mood ED course: 82-year-old male presents to the emergency department for chief complaint of nausea vomiting diarrhea 1 day. Vital signs upon arrival are within acceptable limits. EKG interpretation: Ventricular rate 93, A. fib, QS 85, QTC 391. no QTC prolongation, no ST or T-wave changes noted. EKG compared to 03/17/2022 showing no changes. Overall, this EKG is unremarkable Laboratory evaluation obtained shows leukocytosis of 21.1, rest of CBC within acceptable limits. Metabolic panel shows mild acidosis. Kidney function appears to be baseline. Rest of labs unremarkable. Pending C. diff testing. Positive for coronavirus. Patient reevaluated at bedside. Patient has a poor living situation. He is to have uncontrollable diarrhea. Due to patient's age and risk of acutely worsening at home patient be admitted to [facility]. - Related Data Home Medications Medication Instructions Recorded Confirmed Cholecalciferol [Vitamin D3 (25 2,000 unit PO DAILY 08/14/16 02/01/19 Mcg = 1000 Iu)] Citalopram Hydrobromide [CeleXA] 40 mg PO QAM 08/14/16 02/01/19 Clopidogrel [Plavix] 75 mg PO DAILY 08/14/16 02/01/19 Pravastatin Sodium [Pravachol] 40 mg PO HS 08/14/16 02/01/19 Terazosin HCl [Hytrin] 10 mg PO QAM 08/14/16 02/01/19 carvediloL [Coreg] 3.125 mg PO BID 08/14/16 02/01/19 Niacin 500 mg PO DAILY 08/24/16 02/01/19 Bumetanide [Bumex] 1 mg PO DAILY 11/17/16 02/01/19 Losartan [Cozaar] 25 mg PO DAILY 11/17/16 02/01/19 Spironolactone [Aldactone] 12.5 mg PO DAILY 11/17/16 02/01/19 Calcium Carbonate [Tums] 500 - 1,000 mg PO QID PRN 01/27/19 02/01/19 allopurinoL [Zyloprim] 100 mg PO DAILY 01/27/19 02/01/19 Previous Rx's Medication Instructions Recorded HYDROcodone/APAP 5-325MG [[place] 5] 1 each PO Q6HR PRN #28 tab 02/02/19 Allergies Allergy/AdvReac Type Severity Reaction Status Date / Time No Known Allergies Allergy Verified 03/17/22 14:40 Review of Systems ROS Statement: Those systems with pertinent positive or pertinent negative responses have been documented in the HPI. ROS Other: All systems not noted in ROS Statement are negative. Past Medical History Past Medical History: Atrial Fibrillation, Diabetes Mellitus, Hyperlipidemia, Hypertension, Myocardial Infarction ([place]), Osteoarthritis (OA) Additional Past Medical History / Comment(s): sore lt upper arm,anemia,enlarged prostate,steroids w/in Jun 2016, gout Last Myocardial Infarction Date:: 2008 History of Any Multi-Drug Resistant Organisms: None Reported Past Surgical History: Heart Catheterization Additional Past Surgical History / Comment(s): karel cataracts Past Anesthesia/Blood Transfusion Reactions: No Reported Reaction Past Psychological History: Anxiety Past Alcohol Use History: None Reported Past Drug Use History: None Reported - Past Family History Mother History Unknown: Yes Father History Unknown: Yes General Exam Limitations: no limitations Course Vital Signs 07/03/22 22:53 Temperature 97.8 F Pulse Rate 84 Respiratory 16 Rate Blood Pressure 132/53 O2 Sat by Pulse 96 Oximetry Medical Decision Making - Lab Data Result diagrams: 07/03/22 15:42 07/03/22 15:42 Lab Results 07/03/22 07/03/22 07/03/22 Range/Units 15:42 15:42 23:20 WBC 21.1 H (3.8-10.6) k/uL RBC 3.99 L (4.30-5.90) m/uL Hgb 11.9 L (13.0-17.5) gm/dL Hct 35.9 L (39.0-53.0) % MCV 89.9 (80.0-100.0) fL MCH 29.7 (25.0-35.0) pg MCHC 33.1 (31.0-37.0) g/dL RDW 13.4 (11.5-15.5) % Plt Count 209 (150-450) k/uL MPV 8.5 Neutrophils % 84 % Lymphocytes % 9 % Monocytes % 4 % Eosinophils % 1 % Basophils % 0 % Neutrophils # 17.7 H (1.3-7.7) k/uL Lymphocytes # 1.9 (1.0-4.8) k/uL Monocytes # 0.9 (0-1.0) k/uL Eosinophils # 0.2 (0-0.7) k/uL Basophils # 0.1 (0-0.2) k/uL Sodium 136 L (137-145) mmol/L Potassium 5.1 (3.5-5.1) mmol/L Chloride 105 (98-107) mmol/L Carbon Dioxide 18 L (22-30) mmol/L Anion Gap 13 mmol/L BUN 34 H (9-20) mg/dL Creatinine 1.79 H (0.66-1.25) mg/dL Est GFR (CKD-EPI)AfAm 40 (>60 ml/min/1.73 sqM) Est GFR (CKD-EPI)NonAf 35 (>60 ml/min/1.73 sqM) Glucose 152 H (74-99) mg/dL Calcium 8.2 L (8.4-10.2) mg/dL Total Bilirubin 0.5 (0.2-1.3) mg/dL AST 21 (17-59) U/L ALT 25 (4-49) U/L Alkaline Phosphatase 70 (38-126) U/L Total Protein 6.0 L (6.3-8.2) g/dL Albumin 3.8 (3.5-5.0) g/dL Lipase 150 (23-300) U/L Influenza Type A (PCR) Not Detected (Not Detectd) Influenza Type B (PCR) Not Detected (Not Detectd) RSV (PCR) Not Detected (Not Detectd) SARS-CoV-2 (PCR) Detected A (Not Detectd) Disposition Clinical Impression: COVID, Debility Disposition: ADMITTED IP TO THIS HOSP Condition: Fair Referrals: Billy Yang DO [Primary Care Provider] - 1-2 days Decision Time: 01:13
[2022-07-03 23:12] LABS: Basophils # (A) 0.1 k/uL (0-0.2); Basophils % (A) 0 %; Eosinophils # (A) 0.2 k/uL (0-0.7); Eosinophils % (A) 1 %; HCT 35.9 % (39.0-53.0); HGB 11.9 gm/dL (13.0-17.5); Lymphocytes # (A) 1.9 k/uL (1.0-4.8); Lymphocytes % (A) 9 %; MCH 29.7 pg (25.0-35.0); MCHC 33.1 g/dL (31.0-37.0); MCV 89.9 fL (80.0-100.0); Mean Platelet Volume 8.5; Monocytes # (A) 0.9 k/uL (0-1.0); Monocytes % (A) 4 %; Neutrophils # (A) 17.7 k/uL (1.3-7.7); Neutrophils % (A) 84 %; Platelet Count 209 k/uL (150-450); RBC 3.99 m/uL (4.30-5.90); RDW 13.4 % (11.5-15.5); WBC 21.1 k/uL (3.8-10.6)
[2022-07-03 23:23] LABS: Albumin 3.8 g/dL (3.5-5.0); Calcium 8.2 mg/dL (8.4-10.2); Potassium 5.1 mmol/L (3.5-5.1); Total Bilirubin 0.5 mg/dL (0.2-1.3)
[2022-07-04] MEDS ORDERED: NALOXONE 0.4 MG/ML 1 ML VIAL IV PRN (01:11)
[2022-07-04] MEDS ORDERED: ACETAMINOPHEN TAB 325 MG TAB PO PRN (01:11)
[2022-07-04] MEDS: SODIUM CHLORIDE 0.9% 1,000 ML IV SCH ×2 (01:16→17:17)
[2022-07-04] MEDS ORDERED: LORazepam 2 MG/ML INJ IV STA (03:08)
--- NOTE | 2022-07-04 04:56 | P.HPIM ---
History of Present Illness H&P Date: 07/04/22 The patient is an 82-year-old male with a PMH of chronic kidney disease, hypertension, hyperlipidemia, gout, who presents to the emergency room with complaints of fever, nausea, vomiting, diarrhea. The patient reports that he has been expressing these symptoms for the past 1-2 days. He reports no blood or black tarry material in his vomitus. Reports that he was recently seen by his PCP and was given antibiotics for a fever at home. Does not recall being told of the exact reasons for the fever. In the emergency room, the patient's laboratory evaluation was remarkable for leukocytosis of 21.1, BUN 34, creatinine 1.79, and coronairus PCR positive. EKG revealed A. fib at [address]/T-wave activities are as reviewed by me. Review of systems: Pertinent positives and negatives as discussed in HPI, a complete review of systems was performed and all other systems are negative. Physical examination: General: non toxic, no distress, appears at stated age, normal weight Derm: no unusual rashes/lesions, warm Head: atraumatic, normocephalic, symmetric Eyes: EOMI, no lid lag, anicteric sclera, pupils equal round reactive to light ENT: Nose and ears atraumatic Neck: No cervical lymphadenopathy, trachea midline, supple Mouth: no lip lesion, mucus membranes moist Cardiovascular: S1S2 reg, no murmur, positive dorsalis pedis pulse bilateral, no edema Lungs: CTA bilateral, no rhonchi, no rales, no accessory muscle use Abdominal: soft, nontender to palpation, no guarding Ext: muscle strength 5 out of 5 in all 4 extremities grossly, no gross muscle atrophy, no contractures, Neuro: CN II-XI grossly intact, no gross focal neuro deficits Psych: Alert, oriented, appropriate affect Assessment/plan SIRS, possibly due to COVID-19, not requiring supplemental oxygen -Vitamin C, vitamin D, zinc -IV fluids -Follow cultures Diarrhea -Obtain C. diff panel -Follow-up fecal studies -IVFs Afib -No known prior diagnosis -Cardiac monitoring -Cardiology consult Chronic conditions: Chronic kidney disease, hypertension, hyperlipidemia -Continue with home meds -Creatinine at baseline DVT prophylaxis -Heparin subcu The patient is admitted with an anticipated greater than 2 midnight stay for evaluation of SIRS. CODE STATUS: Full Code Discussed with: Patient Anticipated discharge date: 2-[address]: Home Past Medical History Past Medical History: Atrial Fibrillation, Diabetes Mellitus, Hyperlipidemia, Hypertension, Myocardial Infarction ([place]), Osteoarthritis ([place]) Additional Past Medical History / Comment(s): sore lt upper arm,anemia,enlarged prostate,steroids w/in Jun 2016, gout Last Myocardial Infarction Date:: 2008 History of Any Multi-Drug Resistant Organisms: None Reported Past Surgical History: Heart Catheterization Additional Past Surgical History / Comment(s): karel cataracts Past Anesthesia/Blood Transfusion Reactions: No Reported Reaction Past Psychological History: Anxiety Past Alcohol Use History: None Reported Past Drug Use History: None Reported - Past Family History Mother History Unknown: Yes Father History Unknown: Yes Family Medical History: Hyperlipidemia Medications and Allergies Home Medications Medication Instructions Recorded Confirmed Type Cholecalciferol [Vitamin D3 (25 2,000 unit PO DAILY 08/14/16 02/01/19 History Mcg = 1000 Iu)] Citalopram Hydrobromide [CeleXA] 40 mg PO QAM 08/14/16 02/01/19 History Clopidogrel [Plavix] 75 mg PO DAILY 08/14/16 02/01/19 History Pravastatin Sodium [Pravachol] 40 mg PO HS 08/14/16 02/01/19 History Terazosin HCl [Hytrin] 10 mg PO QAM 08/14/16 02/01/19 History carvediloL [Coreg] 3.125 mg PO BID 08/14/16 02/01/19 History Niacin 500 mg PO DAILY 08/24/16 02/01/19 History Bumetanide [Bumex] 1 mg PO DAILY 11/17/16 02/01/19 History Losartan [Cozaar] 25 mg PO DAILY 11/17/16 02/01/19 History Spironolactone [Aldactone] 12.5 mg PO DAILY 11/17/16 02/01/19 History Calcium Carbonate [Tums] 500 - 1,000 mg PO QID PRN 01/27/19 02/01/19 History allopurinoL [Zyloprim] 100 mg PO DAILY 01/27/19 02/01/19 History HYDROcodone/APAP 5-325MG [[place] 5] 1 each PO Q6HR PRN #28 tab 02/02/19 Rx Allergies Allergy/AdvReac Type Severity Reaction Status Date / Time No Known Allergies Allergy Verified 03/17/22 14:40 Physical Exam Vitals: Vital Signs Temp Pulse Resp BP Pulse Ox 07/03/22 22:53 97.8 F 84 16 132/53 96 Intake and Output 07/03/22 07/03/22 07/04/22 14:59 22:59 06:59 Other: Weight 77.111 kg Results CBC & Chem 7: 07/03/22 15:42 07/03/22 15:42 Labs: Abnormal Lab Results - Last 24 Hours (Table) 07/03/22 07/03/22 07/03/22 Range/Units 15:42 15:42 23:20 WBC 21.1 H (3.8-10.6) k/uL RBC 3.99 L (4.30-5.90) m/uL Hgb 11.9 L (13.0-17.5) gm/dL Hct 35.9 L (39.0-53.0) % Neutrophils # 17.7 H (1.3-7.7) k/uL Sodium 136 L (137-145) mmol/L Carbon Dioxide 18 L (22-30) mmol/L BUN 34 H (9-20) mg/dL Creatinine 1.79 H (0.66-1.25) mg/dL Glucose 152 H (74-99) mg/dL Calcium 8.2 L (8.4-10.2) mg/dL Total Protein 6.0 L (6.3-8.2) g/dL SARS-CoV-2 (PCR) Detected A (Not Detectd)
[2022-07-04] MEDS ORDERED: HALOPERIDOL LACTATE 5 MG/ML 1 ML VIAL IM STA (06:07)
[2022-07-04] MEDS ORDERED: HEPARIN SODIUM,PORCINE/PF 5,000 UNIT/0.5 ML SYRINGE SQ SCH (08:00)
[2022-07-04] MEDS ORDERED: ACETAMINOPHEN SUPPOSITORY 650 MG SUPP RECTAL PRN ×2 (10:22→14:54)
[2022-07-04] MEDS: ASCORBIC ACID 500 MG TAB PO SCH (12:19)
[2022-07-04] MEDS: CHOLECALCIFEROL 25 MCG (1000 IU) TABLET PO SCH ×2 (12:19)
[2022-07-04] MEDS: ZINC SULFATE 220 MG CAP PO SCH (12:21)
--- NOTE | 2022-07-04 12:31 | P.EN ---
Hospitalist Interval Note Patient seen and examined at bedside. Vital signs reviewed General: [ toxic], [moderate distress], [appears at stated age] Derm: [warm], [dry] Head: [atraumatic], [normocephalic], [symmetric] Eyes: [EOMI], [no lid lag], [anicteric sclera] Mouth: [no lip lesion], [mucus membranes moist] Cardiovascular: [S1S2 reg], [no murmur], [positive posterior tibial pulse bilateral], Lungs: [CTA bilateral], [no rhonchi, no rales] , [no accessory muscle use] Abdominal: [soft], [ nontender to palpation], [no guarding], [no appreciable or ganomegaly] Ext: [no gross muscle atrophy], [no edema], [no contractures] Neuro: [ CN II-XI grossly intact], [no focal neuro deficits] Psych: [Drowsy, [appropriate affect] Assessment/Plan: SIRS, possibly due to COVID-19, not requiring supplemental oxygen Diarrhea Afib Chronic conditions: Chronic kidney disease, hypertension, hyperlipidemia This is an update note for patient , for full note please see history and physical . There is no charge associated with this note.
--- NOTE | 2022-07-04 15:09 | XR ---
EXAMINATION TYPE: XR chest 1V DATE OF EXAM: 07/04/2022 COMPARISON: 01/23/2019 HISTORY: Back pain TECHNIQUE: 2 views FINDINGS: There is no heart failure and are confluent pneumonic infiltrate. Costophrenic angles are c lear. There are chest leads. The bony thorax is intact. IMPRESSION: No active cardiopulmonary disease. No change.
[2022-07-04 15:29] LABS: HCT 36.7 % (39.0-53.0); HGB 12.1 gm/dL (13.0-17.5); MCH 30.3 pg (25.0-35.0); MCHC 32.9 g/dL (31.0-37.0); MCV 92.1 fL (80.0-100.0); Mean Platelet Volume 8.5; Platelet Count 197 k/uL (150-450); RBC 3.98 m/uL (4.30-5.90); RDW 13.2 % (11.5-15.5); WBC 31.9 k/uL (3.8-10.6)
--- NOTE | 2022-07-04 15:34 | P.CRDCN ---
History of Present Illness Consult date: 07/04/22 Chief complaint: Atrial fibrillation management History of present illness: The patient is a pleasant 82-year-old gentleman with a past medical history significant for coronary artery disease as well as diabetes and hypertension and chronic kidney disease as well as history of permanent atrial fibrillation maintaining on oral anticoagulation presented to the hospital not feeling well. The patient is having some change in mental status and is extremely poor historian. The history was taken from the chart as well as from the nurse taking care of the patient. Apparently the patient was brought with symptoms of fever where he was shivering as well as was upper gastrointestinal symptoms including nausea and vomiting and diarrhea. No upper respiratory infection-like cough or sputum production. He was tested positive for COVID-19 infection and currently he is on isolation. We consulted to see the patient because of atrial fibrillation. The patient is known to have permanent atrial fibrillation maintaining on carvedilol for heart rate and also on anticoagulation with Eliquis. His heart rate in the emergency department on 100 bpm but he was spiking fever. No indication that the patient was experiencing any symptoms of chest pain or chest discomfort. He underwent a workup including a chest x-ray showed no acute abnormalities. The EKG showed atrial fibrillation with extensive baseline artifact. The blood work showed creatinine of 1.79 and his WBC was 21,000. Past Medical History Past Medical History: Atrial Fibrillation, Diabetes Mellitus, Hyperlipidemia, Hypertension, Myocardial Infarction ([place]), Osteoarthritis (OA) Additional Past Medical History / Comment(s): sore lt upper arm,anemia,enlarged prostate,steroids w/in Jun 2016, gout Last Myocardial Infarction Date:: 2008 History of Any Multi-Drug Resistant Organisms: None Reported Past Surgical History: Heart Catheterization Additional Past Surgical History / Comment(s): karel cataracts Past Anesthesia/Blood Transfusion Reactions: No Reported Reaction Past Psychological History: Anxiety Past Alcohol Use History: None Reported Past Drug Use History: None Reported - Past Family History Mother History Unknown: Yes Father History Unknown: Yes Family Medical History: Hyperlipidemia Medications and Allergies Home Medications Medication Instructions Recorded Confirmed Type Cholecalciferol [Vitamin D3 (25 50 mcg PO DAILY 08/14/16 07/04/22 History Mcg = 1000 Iu)] Pravastatin Sodium [Pravachol] 40 mg PO HS 08/14/16 07/04/22 History carvediloL [Coreg] 3.125 mg PO BID 08/14/16 07/04/22 History Losartan [Cozaar] 25 mg PO DAILY 11/17/16 07/04/22 History Spironolactone [Aldactone] 12.5 mg PO DAILY 11/17/16 07/04/22 History allopurinoL [Zyloprim] 100 mg PO DAILY 01/27/19 07/04/22 History Apixaban [Eliquis] 2.5 mg PO BID 07/04/22 07/04/22 History Famotidine [Pepcid] 20 mg PO BID 07/04/22 07/04/22 History Melatonin 3 mg PO HS 07/04/22 07/04/22 History Niacin 500mg(No Flush) 1 tab PO DAILY 07/04/22 07/04/22 History PARoxetine [Paxil] 20 mg PO DAILY 07/04/22 07/04/22 History Tamsulosin [Flomax] 0.4 mg PO PC-SUPPER 07/04/22 07/04/22 History Allergies Allergy/AdvReac Type Severity Reaction Status Date / Time No Known Allergies Allergy Verified 03/17/22 14:40 Physical Exam Vitals: Vital Signs Temp Pulse Resp BP Pulse Ox 07/04/22 12:11 101.2 F H 108 H 20 128/68 94 L 07/04/22 08:48 100.9 F H 108 H 20 123/75 92 L 07/04/22 06:41 115 H 20 125/77 93 L 07/04/22 03:19 104 H 20 95 07/03/22 22:53 97.8 F 84 16 132/53 96 - Constitutional General appearance: no acute distress - Respiratory Respiratory: bilateral: diminished - Cardiovascular Rhythm: irregularly irregular Heart sounds: normal: S1, S2 Abnormal Heart Sounds: systolic murmur Results 07/03/22 15:42 07/03/22 15:42 Cardiac Enzymes 07/03/22 Range/Units 15:42 AST 21 (17-59) U/L CBC 07/03/22 Range/Units 15:42 WBC 21.1 H (3.8-10.6) k/uL RBC 3.99 L (4.30-5.90) m/uL Hgb 11.9 L (13.0-17.5) gm/dL Hct 35.9 L (39.0-53.0) % Plt Count 209 (150-450) k/uL Comprehensive Metabolic Panel 07/03/22 Range/Units 15:42 Sodium 136 L (137-145) mmol/L Potassium 5.1 (3.5-5.1) mmol/L Chloride 105 (98-107) mmol/L Carbon Dioxide 18 L (22-30) mmol/L BUN 34 H (9-20) mg/dL Creatinine 1.79 H (0.66-1.25) mg/dL Glucose 152 H (74-99) mg/dL Calcium 8.2 L (8.4-10.2) mg/dL AST 21 (17-59) U/L ALT 25 (4-49) U/L Alkaline Phosphatase 70 (38-126) U/L Total Protein 6.0 L (6.3-8.2) g/dL Albumin 3.8 (3.5-5.0) g/dL Current Medications Generic Name Dose Route Start Last Admin Trade Name Freq PRN Reason Stop Dose Admin Acetaminophen 650 mg 07/04/22 01:11 Acetaminophen Tab 325 Mg Tab PO Q6HR PRN Mild Pain or Fever > 100.5 Acetaminophen 650 mg 07/04/22 14:54 Acetaminophen Suppository 650 Mg Supp RECTAL Q4HR PRN Fever Ascorbic Acid 1,000 mg 07/04/22 09:00 07/04/22 12:19 Ascorbic Acid 500 Mg Tab PO Not Given DAILY [facility] Cholecalciferol 125 mcg 07/04/22 09:00 07/04/22 12:19 Cholecalciferol 25 Mcg (1000 Iu) Tablet PO Not Given DAILY [facility] Heparin Sodium (Porcine) 5,000 unit 07/04/22 08:00 07/04/22 08:54 Heparin Sodium,Porcine/Pf 5,000 Unit/0.5 Ml Syringe SQ 5,000 unit Q8HR HARRIET Administration Sodium Chloride 1,000 mls @ 75 mls/hr 07/04/22 01:15 07/04/22 01:16 Saline 0.9% IV 75 mls/hr .[id number] HARRIET Administration Naloxone HCl 0.2 mg 07/04/22 01:11 Naloxone 0.4 Mg/Ml 1 Ml Vial IV Q2M PRN Opioid Reversal Zinc Sulfate 220 mg 07/04/22 09:00 07/04/22 12:21 Zinc Sulfate 220 Mg Cap PO Not Given DAILY HARRIET 07/03/22 15:42 07/03/22 15:42 Assessment and Plan Assessment: Assessment #1 COVID-19 infection #2 atrial fibrillation with slightly uncontrolled heart rate #3 known permanent atrial fibrillation #4 multiple comorbid conditions Plan Restart the patient back on oral anticoagulation Restart the patient back on AV rosalio nash with carvedilol Address the need to adjust the dose of carvedilol down the line Follow-up with the patient
[2022-07-04 15:39] LABS: African American GFR (CKD) 38 (>60 ml/min/1.73 sqM); Anion Gap 15 mmol/L; Blood Urea Nitrogen 28 mg/dL (9-20); Calcium 8.9 mg/dL (8.4-10.2); Carbon Dioxide 20 mmol/L (22-30); Chloride 105 mmol/L (98-107); Glucose 148 mg/dL (74-99); Magnesium 1.6 mg/dL (1.6-2.3); Non-African American GFR(CKD) 33 (>60 ml/min/1.73 sqM); Phosphorus 2.7 mg/dL (2.5-4.5); Potassium 4.4 mmol/L (3.5-5.1); Sodium 140 mmol/L (137-145)
[2022-07-04] MEDS ORDERED: VANCOMYCIN 1,500 MG in SODIUM CHLORIDE 0.9% 250 ML IVPB STA (15:59)
[2022-07-04] MEDS ORDERED: VANCOMYCIN IV PER PHARMACY 1 EACH MISC MISCELLANE PRN (15:59)
[2022-07-04] MEDS ORDERED: CEFEPIME 2 GM in SODIUM CHLORIDE 0.9% 100 ML IVPB STA (16:01)
[2022-07-04 16:07] LABS: Band Neutrophils % 2 %; Lymphocytes # (M) 0.64 k/uL (1.0-4.8); Monocytes # (M) 2.23 k/uL (0-1.0); Neutrophils % (M) 89 %; Nucleated Red Blood Cells 0 /100 WBC (0-0); RBC Morphology Normal; Total Cells Counted 100
[2022-07-04] MEDS ORDERED: MD COMMUNICATION TO PHARMACY 1 EACH MISC PO ONE (16:15)
--- NOTE | 2022-07-04 17:01 | CT ---
EXAMINATION TYPE: CT abdomen pelvis wo con DATE OF EXAM: 07/04/2022 COMPARISON: None HISTORY: Acute abdominal pain CT DLP: 828.6 mGycm Automated exposure control for dose reduction was used. Images obtained from the diaphragm to the floor the pelvis with no contrast. There is some atelectasis at both lung bases. Heart is enlarged. No pericardial effusion. There is sm all bilateral pleural effusions. There is a 2 cm cyst in the left lobe of the liver. There are small calcified gallstones at the gallb ladder fundus. The bile ducts are not dilated. Spleen is intact. The stomach is intact. There is no p ancreatic mass. There is no adrenal mass. Kidneys show normal size and contour. No hydronephrosis. No retroperitoneal adenopathy. Ureters are not dilated. Abdominal aorta is atheromatous. The bladder distends smoothly. No inguinal hernia. There are numerous sigmoid diverticula. No diverticulitis. There is no mesenteric edema. No ascites or free air. No sign of a bowel obstruction. Appendix appear s normal. There is atherosclerotic vascular calcification. The lumbar spine is intact. No compression fracture. There is multilevel lumbar spondylotic changes. The bony pelvis is intact. The hip joints are intact. There is right-sided acetabular bone island. Prostate is enlarged and measures 6.3 cm. IMPRESSION: Atherosclerotic vascular disease. Enlarged prostate. Colonic diverticulosis without diverticulitis. I nterstitial infiltrates and atelectasis of the lung bases. Cholelithiasis.
[2022-07-04 17:44] LABS: Appearance,Urine Clear (Clear); Bacteria,Urine Many /hpf; Bilirubin,Urine Negative (Negative); Blood,Urine Small (Negative); Color,Urine Light Yellow; Glucose,Urine (UA) Negative (Negative); Hyaline Casts,Urine 1 /lpf (0-2); Ketones,Urine Negative (Negative); Leukocyte Esterase,Urine Large (Negative); Mucus,Urine Rare /hpf; Nitrite,Urine Negative (Negative); Protein,Urine 1+ (Negative); RBC,Urine 3 /hpf (0-5); Specific Gravity,Urine 1.018 (1.001-1.035); Squamous Epithelial Cell,Urine <1 /hpf (0-4); Urobilinogen,Urine <2.0 mg/dL (<2.0); WBC,Urine 21 /hpf (0-5)
--- NOTE | 2022-07-04 18:32 | CT ---
EXAMINATION TYPE: CT brain wo con DATE OF EXAM: 07/04/2022 COMPARISON: 04/10/2022 HISTORY: Alterd mental status CT DLP: 1314.4 mGycm Automated exposure control for dose reduction was used. There is cerebral cortical atrophy. There is no mass effect or midline shift. No sign of intracranial hemorrhage. There is hypodensity in the periventricular white matter. There is hydrocephalus. The ca lvarium is intact. IMPRESSION: Cerebral atrophy and hydrocephalus. Chronic small vessel ischemia. No acute intracranial abnormality. No change.
[2022-07-04] MEDS: carvediloL 3.125 MG TAB PO SCH (20:47)
[2022-07-04] MEDS: APIXABAN 2.5 MG TABLET PO SCH (20:58)
[2022-07-04] MEDS ORDERED: METOPROLOL TARTRATE 12.5 MG TAB PO SCH (21:00)
[2022-07-05] MEDS ORDERED: CEFEPIME 2 GM in SODIUM CHLORIDE 0.9% 100 ML IVPB SCH ×2
[2022-07-05 07:10] LABS: Glucose,Whole Blood 180 mg/dL (70-110)
[2022-07-05] MEDS: SODIUM CHLORIDE 0.9% 1,000 ML IV SCH ×2 (07:14→16:51)
--- NOTE | 2022-07-05 08:09 | US ---
EXAMINATION TYPE: US kidneys/renal and bladder DATE OF EXAM: 07/05/2022 COMPARISON: CT CLINICAL HISTORY: Suspected Polynephritis. EXAM MEASUREMENTS: Right Kidney: 9.3 x 4.3 x 4.9 cm Left Kidney: 10.1 x 4.0 x 4.5 cm Right Kidney: parapelvic cysts, largest measuring 1.1 x 0.9 x 1.3cm Left Kidney: No hydronephrosis or masses seen Bladder: Not fully distended, wnl as seen There is no evidence for hydronephrosis at this point in time. No nephrolithiasis is seen. No ivon s are identified. The urinary bladder is anechoic. Bilateral ureteral jets are seen. IMPRESSION: No significant abnormality seen.
--- NOTE | 2022-07-05 09:50 | P.PN ---
Subjective Progress Note Date: 07/05/22 The patient is a pleasant 82-year-old gentleman with a past medical history significant for coronary artery disease as well as diabetes and hypertension and chronic kidney disease as well as history of permanent atrial fibrillation maintaining on oral anticoagulation presented to the hospital not feeling well. The patient is having some change in mental status and is extremely poor historian. The history was taken from the chart as well as from the nurse taking care of the patient. Apparently the patient was brought with symptoms of fever where he was shivering as well as was upper gastrointestinal symptoms including nausea and vomiting and diarrhea. No upper respiratory infection-like cough or sputum production. He was tested positive for COVID-19 infection and currently he is on isolation. We consulted to see the patient because of atrial fibrillation. The patient is known to have permanent atrial fibrillation maintaining on carvedilol for heart rate and also on anticoagulation with Eliquis. His heart rate in the emergency department on 100 bpm but he was spiking fever. No indication that the patient was experiencing any symptoms of chest pain or chest discomfort. He underwent a workup including a chest x-ray showed no acute abnormalities. The EKG showed atrial fibrillation with extensive baseline artifact. The blood work showed creatinine of 1.79 and his WBC was 21,000. 07/05/2022 The patient was evaluated this morning. He continues to be confused. His heart rate has been somewhat better after he was started on carvedilol. He is on oral anticoagulation as well. From a cardiac vascular standpoint of view, I would continue the current medical regimen. If there is an issue taking his oral medication and he cannot swallow we might consider start him on Lopressor IV or start the patient on Cardizem IV. Objective - Vital Signs Vital signs: Vital Signs Temp 98.4 F 07/05/22 02:00 Pulse 94 07/04/22 17:20 Resp 18 07/05/22 02:00 BP 128/77 07/05/22 02:00 Pulse Ox 98 07/05/22 02:00 FiO2 Intake & Output 07/04/22 07/05/22 07/05/22 18:59 06:59 18:59 Intake Total 500 Balance 500 Intake: Oral 500 Other: Voiding Method External Catheter # Voids 4 - Constitutional General appearance: Present: no acute distress - Labs CBC & Chem 7: 07/04/22 14:52 07/04/22 14:52 Labs: Abnormal Lab Results - Last 24 Hours (Table) 07/04/22 07/04/22 07/04/22 Range/Units 14:52 14:52 14:52 WBC 31.9 H (3.8-10.6) k/uL RBC 3.98 L (4.30-5.90) m/uL Hgb 12.1 L (13.0-17.5) gm/dL Hct 36.7 L (39.0-53.0) % Neutrophils # (Manual) 29.00 H (1.3-7.7) k/uL Lymphocytes # (Manual) 0.64 L (1.0-4.8) k/uL Monocytes # (Manual) 2.23 H (0-1.0) k/uL Carbon Dioxide 20 L (22-30) mmol/L BUN 28 H (9-20) mg/dL Creatinine 1.88 H (0.66-1.25) mg/dL Glucose 148 H (74-99) mg/dL POC Glucose (mg/dL) (70-110) mg/dL Procalcitonin 0.87 H (0.02-0.09) ng/mL Urine Protein (Negative) Urine Blood (Negative) Ur Leukocyte Esterase (Negative) Urine WBC (0-5) /hpf Urine Bacteria (None) /hpf Urine Mucus (None) /hpf 07/04/22 07/05/22 Range/Units 16:25 07:08 WBC (3.8-10.6) k/uL RBC (4.30-5.90) m/uL Hgb (13.0-17.5) gm/dL Hct (39.0-53.0) % Neutrophils # (Manual) (1.3-7.7) k/uL Lymphocytes # (Manual) (1.0-4.8) k/uL Monocytes # (Manual) (0-1.0) k/uL Carbon Dioxide (22-30) mmol/L BUN (9-20) mg/dL Creatinine (0.66-1.25) mg/dL Glucose (74-99) mg/dL POC Glucose (mg/dL) 180 H (70-110) mg/dL Procalcitonin (0.02-0.09) ng/mL Urine Protein 1+ H (Negative) Urine Blood Small H (Negative) Ur Leukocyte Esterase Large H (Negative) Urine WBC 21 H (0-5) /hpf Urine Bacteria Many H (None) /hpf Urine Mucus Rare H (None) /hpf Microbiology - Last 24 Hours (Table) 07/04/22 16:44 Urine Culture - Preliminary Urine,Catheterized Assessment and Plan Assessment: Assessment #1 COVID-19 infection #2 atrial fibrillation with slightly uncontrolled heart rate #3 known permanent atrial fibrillation #4 multiple comorbid conditions Plan Continue current dose of carvedilol Continue the current dose of oral anticoagulation Consider IV AV rosalio nash agents if he, swallowing his pills Follow-up
[2022-07-05] MEDS: carvediloL 3.125 MG TAB PO SCH ×2 (10:40→16:50)
[2022-07-05] MEDS: APIXABAN 2.5 MG TABLET PO SCH ×2 (10:40→21:50)
[2022-07-05] MEDS: ZINC SULFATE 220 MG CAP PO SCH (10:40)
[2022-07-05] MEDS: ASCORBIC ACID 500 MG TAB PO SCH (10:40)
[2022-07-05] MEDS: CHOLECALCIFEROL 25 MCG (1000 IU) TABLET PO SCH (10:40)
[2022-07-05 11:25] LABS: HCT 34.2 % (39.6-50.0); HGB 11.5 g/dL (13.0-17.0); MCH 31.3 pg (27.0-32.0); MCHC 33.6 g/dL (32.0-37.0); MCV 92.9 fL (80.0-97.0); Mean Platelet Volume 11.1 fL (9.5-12.2); NRBC Per 100 WBC 0 /100 WBCS (0.0-0.0); Platelet Count 174 X 10*3/uL (140-440); RBC 3.68 X 10*6/uL (4.40-5.60); RDW 13.2 % (11.5-14.5); WBC 27.79 X 10*3/uL (4.50-10.00)
[2022-07-05 11:37] LABS: African American GFR (CKD) 34.6 (60.0-200.0); Anion Gap 12.5 mmol/L (10.00-18.00); BUN/Creat Ratio 16.34 Ratio (12.00-20.00); Carbon Dioxide 18.2 mmol/L (20.0-27.5); Magnesium 1.8 mg/dL (1.5-2.4); Non-African American GFR(CKD) 29.8 (60.0-200.0); Phosphorus 3.4 mg/dL (2.4-5.1); Potassium 4.3 mmol/L (3.5-5.5)
[2022-07-05] MEDS: CEFEPIME 2 GM in SODIUM CHLORIDE 0.9% 100 ML IVPB SCH ×2 (11:48→23:37)
[2022-07-05 11:52] LABS: Glucose,Whole Blood 164 mg/dL (70-110)
[2022-07-05 12:06] LABS: Basophils % (A) 0.4 %; Eosinophils # (A) 0.01 X 10*3/uL (0.04-0.35); Eosinophils % (A) 0 %; Immature Grans, Automated 1.6 %; Lymphocytes # (A) 1.57 X 10*3/uL (0.90-5.00); Lymphocytes % (A) 5.6 %; Monocytes # (A) 1.61 X 10*3/uL (0.20-1.00); Monocytes % (A) 5.8 %; Neutrophils # (A) 24.05 X 10*3/uL (1.80-7.70); Neutrophils % (A) 86.6 %; RBC Morphology NORMAL
--- NOTE | 2022-07-05 13:22 | P.PN ---
Subjective Progress Note Date: 07/05/22 The patient was seen at this site, no acute events overnight. His mentation did improve and currently alert and oriented 2-3. Objective - Vital Signs Vital signs: Vital Signs Temp 98.4 F 07/05/22 08:00 Pulse 80 07/05/22 08:00 Resp 19 07/05/22 08:00 BP 133/58 07/05/22 08:00 Pulse Ox 99 07/05/22 08:00 FiO2 Intake & Output 07/04/22 07/05/22 07/05/22 18:59 06:59 18:59 Intake Total 500 100 Balance 500 100 Intake: IV 100 Cefipime 100 Oral 500 Other: Voiding Method External Catheter Diaper # Voids 4 1 # Bowel Movements 1 - Exam General: [ toxic], [mild distress], [appears at stated age] Derm: [warm], [dry] Head: [atraumatic], [normocephalic], [symmetric] Eyes: [EOMI], [no lid lag], [anicteric sclera] Mouth: [no lip lesion], [mucus membranes moist] Cardiovascular: [S1S2 reg], [no murmur], [positive posterior tibial pulse bilateral], Lungs: [CTA bilateral], [no rhonchi, no rales] , [no accessory muscle use] Abdominal: [soft], [ nontender to palpation], [no guarding], [no appreciable or ganomegaly] Ext: [no gross muscle atrophy], [no edema], [no contractures] Neuro: [ CN II-XI grossly intact], [no focal neuro deficits] Psych: [Alert and oriented 2-3 [appropriate affect] - Labs CBC & Chem 7: 07/05/22 07:18 07/05/22 07:18 Labs: Abnormal Lab Results - Last 24 Hours (Table) 07/04/22 07/04/22 07/04/22 Range/Units 14:52 14:52 14:52 WBC 31.9 H (3.8-10.6) k/uL RBC 3.98 L (4.30-5.90) m/uL Hgb 12.1 L (13.0-17.5) gm/dL Hct 36.7 L (39.0-53.0) % Immature Gran # (0.00-0.04) X 10*3/uL Neutrophils # (1.80-7.70) X 10*3/uL Neutrophils # (Manual) 29.00 H (1.3-7.7) k/uL Lymphocytes # (Manual) 0.64 L (1.0-4.8) k/uL Monocytes # (0.20-1.00) X 10*3/uL Monocytes # (Manual) 2.23 H (0-1.0) k/uL Eosinophils # (0.04-0.35) X 10*3/uL Carbon Dioxide 20 L (22-30) mmol/L BUN 28 H (9-20) mg/dL Creatinine 1.88 H (0.66-1.25) mg/dL Est GFR (CKD-EPI)AfAm (60.0-200.0) Est GFR (CKD-EPI)NonAf (60.0-200.0) Glucose 148 H (74-99) mg/dL POC Glucose (mg/dL) (70-110) mg/dL Calcium (8.7-10.3) mg/dL Procalcitonin 0.87 H (0.02-0.09) ng/mL Urine Protein (Negative) Urine Blood (Negative) Ur Leukocyte Esterase (Negative) Urine WBC (0-5) /hpf Urine Bacteria (None) /hpf Urine Mucus (None) /hpf 07/04/22 07/05/22 07/05/22 Range/Units 16:25 07:08 07:18 WBC 27.79 H (3.8-10.6) k/uL RBC 3.68 L (4.30-5.90) m/uL Hgb 11.5 L (13.0-17.5) gm/dL Hct 34.2 L (39.0-53.0) % Immature Gran # 0.45 H (0.00-0.04) X 10*3/uL Neutrophils # 24.05 H (1.80-7.70) X 10*3/uL Neutrophils # (Manual) (1.3-7.7) k/uL Lymphocytes # (Manual) (1.0-4.8) k/uL Monocytes # 1.61 H (0.20-1.00) X 10*3/uL Monocytes # (Manual) (0-1.0) k/uL Eosinophils # 0.01 L (0.04-0.35) X 10*3/uL Carbon Dioxide (22-30) mmol/L BUN (9-20) mg/dL Creatinine (0.66-1.25) mg/dL Est GFR (CKD-EPI)AfAm (60.0-200.0) Est GFR (CKD-EPI)NonAf (60.0-200.0) Glucose (74-99) mg/dL POC Glucose (mg/dL) 180 H (70-110) mg/dL Calcium (8.7-10.3) mg/dL Procalcitonin (0.02-0.09) ng/mL Urine Protein 1+ H (Negative) Urine Blood Small H (Negative) Ur Leukocyte Esterase Large H (Negative) Urine WBC 21 H (0-5) /hpf Urine Bacteria Many H (None) /hpf Urine Mucus Rare H (None) /hpf 07/05/22 07/05/22 Range/Units 07:18 11:50 WBC (3.8-10.6) k/uL RBC (4.30-5.90) m/uL Hgb (13.0-17.5) gm/dL Hct (39.0-53.0) % Immature Gran # (0.00-0.04) X 10*3/uL Neutrophils # (1.80-7.70) X 10*3/uL Neutrophils # (Manual) (1.3-7.7) k/uL Lymphocytes # (Manual) (1.0-4.8) k/uL Monocytes # (0.20-1.00) X 10*3/uL Monocytes # (Manual) (0-1.0) k/uL Eosinophils # (0.04-0.35) X 10*3/uL Carbon Dioxide 18.2 L (22-30) mmol/L BUN 33.0 H (9-20) mg/dL Creatinine 2.0 H (0.66-1.25) mg/dL Est GFR (CKD-EPI)AfAm 34.6 L (60.0-200.0) Est GFR (CKD-EPI)NonAf 29.8 L (60.0-200.0) Glucose 180 H (74-99) mg/dL POC Glucose (mg/dL) 164 H (70-110) mg/dL Calcium 8.0 L (8.7-10.3) mg/dL Procalcitonin (0.02-0.09) ng/mL Urine Protein (Negative) Urine Blood (Negative) Ur Leukocyte Esterase (Negative) Urine WBC (0-5) /hpf Urine Bacteria (None) /hpf Urine Mucus (None) /hpf Microbiology - Last 24 Hours (Table) 07/04/22 07:41 Blood Culture - Preliminary Blood No Growth after 24 hours 07/04/22 16:44 Urine Culture - Preliminary Urine,Catheterized Assessment and Plan Assessment: SIRS, likely due to UTI Delirium likely secondary to UTI UA was positive Urine cultures pending Blood cultures are pending Patient started on IV vancomycin and cefepime -IV fluids -Follow cultures COVID-19, not requiring supplemental oxygen -Vitamin C, vitamin D, zinc Diarrhea -Obtain C. diff panel -Follow-up fecal studies -IVFs Afib -Cardiac monitoring -Cardiology consult Chronic conditions: Chronic kidney disease, hypertension, hyperlipidemia -Continue with home meds -Creatinine at baseline DVT prophylaxis -Heparin subcu The patient is admitted with an anticipated greater than 2 midnight stay for evaluation of SIRS. CODE STATUS: Full Code Discussed with: Patient Anticipated discharge date: 2-[address]: Home
[2022-07-05] MEDS ORDERED: VANCOMYCIN 1,250 MG in SODIUM CHLORIDE 0.9% 250 ML IVPB SCH (16:00)
[2022-07-05 16:52] LABS: Glucose,Whole Blood 145 mg/dL (70-110)
[2022-07-05] MEDS: ONDANSETRON 4 MG/2 ML VIAL IVP PRN (20:44)
[2022-07-05 20:49] LABS: Glucose,Whole Blood 136 mg/dL (70-110)
[2022-07-06] MEDS: ONDANSETRON 4 MG/2 ML VIAL IVP PRN ×3 (02:33→21:42)
[2022-07-06] MEDS: SODIUM CHLORIDE 0.9% 1,000 ML IV SCH ×2 (04:18→13:26)
[2022-07-06 06:48] LABS: Glucose,Whole Blood 164 mg/dL (70-110)
--- NOTE | 2022-07-06 07:19 | P.CONS ---
History of Present Illness - Reason for Consult Consult date: 07/05/22 Sepsis secondary to UTI Requesting physician: Dana White - Chief Complaint Weakness and fever x few days - History of Present Illness Patient is a 82-year-old male presenting to the ER 2 days ago for evaluation of nausea vomiting and diarrhea patient symptom has been going on for about a day has been complaining of loose watery stool but no blood or mucus in the stool, patient has been nauseous with episodes of emesis denies having any abdominal pain was complaining of some fever patient on presentation to the hospital did have a fever of 101.2 subsequently up to 103 F yesterday afternoon patient also have a elevated white count of 21.1 which is up to 27.9 today he did have elevated BUN and creatinine did have a positive UA patient did have positive COVID testing but no significant respiratory symptoms and is currently on room air patient did have a abdominal pelvis CT enlarged prostate colonic diverticulosis without diverticulitis infiltrate atelectasis at the lung bases patient was started on vancomycin and Zosyn infectious disease was consulted today for further management of antibiotic therapy patient did have ultrasound of the abdominal did not show any evidence of hydronephrosis or other structure abnormality to the kidneys patient himself evaluated good historian, however he answered to me that he is at [facility] denies any headache or URI symptoms no chest pain no shortness of the cough still having diarrhea for the patient did have a rectal tube Review of Systems Positive point has been mentioned in the HPI rest of the systems are negative Past Medical History Past Medical History: Atrial Fibrillation, Diabetes Mellitus, Hyperlipidemia, Hypertension, Myocardial Infarction (ME), Osteoarthritis (OA) Additional Past Medical History / Comment(s): sore lt upper arm,anemia,enlarged prostate,steroids w/in Jun 2016, gout Last Myocardial Infarction Date:: 2008 History of Any Multi-Drug Resistant Organisms: None Reported Past Surgical History: Heart Catheterization Additional Past Surgical History / Comment(s): karel cataracts Past Anesthesia/Blood Transfusion Reactions: No Reported Reaction Past Psychological History: Anxiety Past Alcohol Use History: None Reported Past Drug Use History: None Reported - Past Family History Mother History Unknown: Yes Father History Unknown: Yes Family Medical History: Hyperlipidemia Medications and Allergies Home Medications Medication Instructions Recorded Confirmed Type Cholecalciferol [Vitamin D3 (25 50 mcg PO DAILY 08/14/16 07/04/22 History Mcg = 1000 Iu)] Pravastatin Sodium [Pravachol] 40 mg PO HS 08/14/16 07/04/22 History carvediloL [Coreg] 3.125 mg PO BID 08/14/16 07/04/22 History Losartan [Cozaar] 25 mg PO DAILY 11/17/16 07/04/22 History Spironolactone [Aldactone] 12.5 mg PO DAILY 11/17/16 07/04/22 History allopurinoL [Zyloprim] 100 mg PO DAILY 01/27/19 07/04/22 History Apixaban [Eliquis] 2.5 mg PO BID 07/04/22 07/04/22 History Famotidine [Pepcid] 20 mg PO BID 07/04/22 07/04/22 History Melatonin 3 mg PO HS 07/04/22 07/04/22 History PARoxetine [Paxil] 20 mg PO DAILY 07/04/22 07/04/22 History Tamsulosin [Flomax] 0.4 mg PO PC-SUPPER 07/04/22 07/04/22 History Acetaminophen Suppository [Tylenol 650 mg RECTAL Q4HR PRN suppositor 07/09/22 Rx Suppository] Benzonatate [Tessalon Perles] 100 mg PO TID PRN cap 07/09/22 Rx Cefpodoxime Proxetil [Vantin] 200 mg PO Q12HR #16 tab 07/09/22 Rx Zinc Sulfate [Orazinc] 220 mg PO DAILY cap 07/09/22 Rx guaiFENesin SYRUP 100MG/5ML 200 mg PO Q6HR PRN ml 07/09/22 Rx [Robitussin] Allergies Allergy/AdvReac Type Severity Reaction Status Date / Time No Known Allergies Allergy Verified 07/20/22 13:32 Physical Exam Vitals: Vital Signs Temp Pulse Pulse Resp BP BP Pulse Ox 07/05/22 08:00 98.4 F 80 19 133/58 99 07/05/22 02:00 98.4 F 18 128/77 98 07/04/22 20:00 98.4 F 18 135/64 96 07/04/22 17:20 100.2 F H 94 18 139/76 94 L 07/04/22 14:20 103 F H Intake and Output 07/04/22 07/05/22 07/05/22 22:59 06:59 14:59 Intake Total 500 100 Balance 500 100 Intake: IV 100 Cefipime 100 Oral 500 Other: Voiding Method External Catheter Diaper # Voids 4 1 # Bowel Movements 1 GENERAL DESCRIPTION: Elderly male lying in bed, no distress. No tachypnea or accessory muscle of respiration use. HEENT: Shows Pallor , no scleral icterus. Oral mucous membrane is dry. No pharyngeal erythema or thrush NECK: Trachea central, no thyromegaly. LUNGS: Unlabored breathing. Clear to auscultation anteriorly. No wheeze or crackle. HEART: S1, S2, regular rate and rhythm. No loud murmur ABDOMEN: Soft, no tenderness , guarding or rigidity, no organomegaly EXTREMITIES: No edema of feet. SKIN: No rash, no masses palpable. NEUROLOGICAL: The patient is awake, alert, oriented x3, mood and affect normal. Results CBC & Chem 7: 07/09/22 07:56 07/09/22 07:56 Labs: Abnormal Lab Results - Last 24 Hours (Table) 07/04/22 07/04/22 07/04/22 Range/Units 14:52 14:52 14:52 WBC 31.9 H (3.8-10.6) k/uL RBC 3.98 L (4.30-5.90) m/uL Hgb 12.1 L (13.0-17.5) gm/dL Hct 36.7 L (39.0-53.0) % Immature Gran # (0.00-0.04) X 10*3/uL Neutrophils # (1.80-7.70) X 10*3/uL Neutrophils # (Manual) 29.00 H (1.3-7.7) k/uL Lymphocytes # (Manual) 0.64 L (1.0-4.8) k/uL Monocytes # (0.20-1.00) X 10*3/uL Monocytes # (Manual) 2.23 H (0-1.0) k/uL Eosinophils # (0.04-0.35) X 10*3/uL Carbon Dioxide 20 L (22-30) mmol/L BUN 28 H (9-20) mg/dL Creatinine 1.88 H (0.66-1.25) mg/dL Est GFR (CKD-EPI)AfAm (60.0-200.0) Est GFR (CKD-EPI)NonAf (60.0-200.0) Glucose 148 H (74-99) mg/dL POC Glucose (mg/dL) (70-110) mg/dL Calcium (8.7-10.3) mg/dL Procalcitonin 0.87 H (0.02-0.09) ng/mL Urine Protein (Negative) Urine Blood (Negative) Ur Leukocyte Esterase (Negative) Urine WBC (0-5) /hpf Urine Bacteria (None) /hpf Urine Mucus (None) /hpf 07/04/22 07/05/22 07/05/22 Range/Units 16:25 07:08 07:18 WBC 27.79 H (3.8-10.6) k/uL RBC 3.68 L (4.30-5.90) m/uL Hgb 11.5 L (13.0-17.5) gm/dL Hct 34.2 L (39.0-53.0) % Immature Gran # 0.45 H (0.00-0.04) X 10*3/uL Neutrophils # 24.05 H (1.80-7.70) X 10*3/uL Neutrophils # (Manual) (1.3-7.7) k/uL Lymphocytes # (Manual) (1.0-4.8) k/uL Monocytes # 1.61 H (0.20-1.00) X 10*3/uL Monocytes # (Manual) (0-1.0) k/uL Eosinophils # 0.01 L (0.04-0.35) X 10*3/uL Carbon Dioxide (22-30) mmol/L BUN (9-20) mg/dL Creatinine (0.66-1.25) mg/dL Est GFR (CKD-EPI)AfAm (60.0-200.0) Est GFR (CKD-EPI)NonAf (60.0-200.0) Glucose (74-99) mg/dL POC Glucose (mg/dL) 180 H (70-110) mg/dL Calcium (8.7-10.3) mg/dL Procalcitonin (0.02-0.09) ng/mL Urine Protein 1+ H (Negative) Urine Blood Small H (Negative) Ur Leukocyte Esterase Large H (Negative) Urine WBC 21 H (0-5) /hpf Urine Bacteria Many H (None) /hpf Urine Mucus Rare H (None) /hpf 07/05/22 07/05/22 Range/Units 07:18 11:50 WBC (3.8-10.6) k/uL RBC (4.30-5.90) m/uL Hgb (13.0-17.5) gm/dL Hct (39.0-53.0) % Immature Gran # (0.00-0.04) X 10*3/uL Neutrophils # (1.80-7.70) X 10*3/uL Neutrophils # (Manual) (1.3-7.7) k/uL Lymphocytes # (Manual) (1.0-4.8) k/uL Monocytes # (0.20-1.00) X 10*3/uL Monocytes # (Manual) (0-1.0) k/uL Eosinophils # (0.04-0.35) X 10*3/uL Carbon Dioxide 18.2 L (22-30) mmol/L BUN 33.0 H (9-20) mg/dL Creatinine 2.0 H (0.66-1.25) mg/dL Est GFR (CKD-EPI)AfAm 34.6 L (60.0-200.0) Est GFR (CKD-EPI)NonAf 29.8 L (60.0-200.0) Glucose 180 H (74-99) mg/dL POC Glucose (mg/dL) 164 H (70-110) mg/dL Calcium 8.0 L (8.7-10.3) mg/dL Procalcitonin (0.02-0.09) ng/mL Urine Protein (Negative) Urine Blood (Negative) Ur Leukocyte Esterase (Negative) Urine WBC (0-5) /hpf Urine Bacteria (None) /hpf Urine Mucus (None) /hpf Microbiology - Last 24 Hours (Table) 07/04/22 07:41 Blood Culture - Preliminary Blood No Growth after 24 hours 07/04/22 16:44 Urine Culture - Preliminary Urine,Catheterized Assessment and Plan (1) UTI (urinary tract infection) Status: Acute Code(s): N39.0 - URINARY TRACT INFECTION, SITE NOT SPECIFIED SNOMED Code(s): 66283969 Plan: 1patient present to the hospital with sepsis in this patient did have a fever elevated white count positive UA concerning for possible urinary source however the patient did have significant diarrhea C. difficile needs to be ruled out however there was no evidence of any colitis or diverticulitis on abdominal CT. 2we will send stool for C. difficile and stool culture. 3continue patient on Zosyn however discontinue vancomycin to decrease risk of nephrotoxicity. 4gentle IV fluid. We will follow on clinical condition and cultures to further adjust medication if needed Thank you for this consultation will follow this patient along with you Time with Patient: Greater than 30
[2022-07-06 09:04] LABS: African American GFR (CKD) 42.6 (60.0-200.0); Anion Gap 13.5 mmol/L (10.00-18.00); BUN/Creat Ratio 22.53 Ratio (12.00-20.00); Blood Urea Nitrogen 38.3 mg/dL (9.0-27.0); Calcium 7.8 mg/dL (8.7-10.3); Carbon Dioxide 15.5 mmol/L (20.0-27.5); Magnesium 1.9 mg/dL (1.5-2.4); Non-African American GFR(CKD) 36.7 (60.0-200.0); Phosphorus 2.7 mg/dL (2.4-5.1); Potassium 3.8 mmol/L (3.5-5.5)
[2022-07-06 09:11] LABS: Basophils # (A) 0.07 X 10*3/uL (0.00-0.10); Basophils % (A) 0.3 %; Eosinophils # (A) 0.05 X 10*3/uL (0.04-0.35); Eosinophils % (A) 0.2 %; HCT 33.1 % (39.6-50.0); HGB 10.9 g/dL (13.0-17.0); Immature Grans, Automated 1.3 %; Lymphocytes # (A) 1.95 X 10*3/uL (0.90-5.00); Lymphocytes % (A) 7.2 %; MCH 30.4 pg (27.0-32.0); MCHC 32.9 g/dL (32.0-37.0); MCV 92.2 fL (80.0-97.0); Mean Platelet Volume 11.6 fL (9.5-12.2); Monocytes # (A) 1.62 X 10*3/uL (0.20-1.00); NRBC Per 100 WBC 0 /100 WBCS (0.0-0.0); Neutrophils # (A) 23.04 X 10*3/uL (1.80-7.70); Platelet Count 188 X 10*3/uL (140-440); RBC 3.59 X 10*6/uL (4.40-5.60); RDW 13.2 % (11.5-14.5); WBC 27.08 X 10*3/uL (4.50-10.00)
[2022-07-06] MEDS: CHOLECALCIFEROL 25 MCG (1000 IU) TABLET PO SCH (10:02)
[2022-07-06] MEDS: ASCORBIC ACID 500 MG TAB PO SCH (10:02)
[2022-07-06] MEDS: carvediloL 3.125 MG TAB PO SCH ×2 (10:02→16:57)
[2022-07-06] MEDS: APIXABAN 2.5 MG TABLET PO SCH ×2 (10:03→21:42)
[2022-07-06] MEDS: ZINC SULFATE 220 MG CAP PO SCH (10:03)
[2022-07-06 11:43] LABS: Glucose,Whole Blood 281 mg/dL (70-110)
[2022-07-06] MEDS: PARoxetine 20 MG TAB PO SCH (13:24)
[2022-07-06] MEDS: LOSARTAN 25 MG TAB PO SCH (13:24)
[2022-07-06] MEDS: SODIUM CHLORIDE 0.45% 1,000 ML IV SCH ×2 (13:26→23:04)
[2022-07-06] MEDS: CEFEPIME 2 GM in SODIUM CHLORIDE 0.9% 100 ML IVPB SCH (13:31)
[2022-07-06 16:25] LABS: Glucose,Whole Blood 165 mg/dL (70-110)
[2022-07-06] MEDS: TAMSULOSIN 0.4 MG CAP.ER.24H PO SCH (18:21)
--- NOTE | 2022-07-06 19:20 | P.PN ---
Subjective Progress Note Date: 07/06/22 (delayed charting seen at 1030) The patient is an 82-year-old male with chronic kidney disease, hypertension, hyperlipidemia, gout, who presents to the emergency room with complaints of fever, nausea, vomiting, diarrhea. n the emergency room, the patient's laboratory evaluation was remarkable for leukocytosis of 21.1, BUN 34, creatinine 1.79, and coronairus PCR positive. Patient seen and examined at bedside. He denies any shortness of breath but is having significant amounts of diarrhea and some nausea. He has decreased appetite. General: nontoxic, no distress, appears at stated age Derm: warm, dry Head: atraumatic, normocephalic, symmetric Eyes: EOMI, no lid lag, anicteric sclera Mouth: no lip lesion, mucus membranes moist Cardiovascular: S1S2 reg, no murmur, positive posterior tibial pulse bilateral, Lungs: CTA bilateral, no rhonchi, no rales , no accessory muscle use Abdominal: soft, nontender to palpation, no guarding, no appreciable organomegaly Ext: no gross muscle atrophy, no edema, no contractures Neuro: CN II-XI grossly intact, no focal neuro deficits Psych: Alert, oriented, appropriate affect Assessment/plan Acute encephalopathy Klebsiella Urinary tract infection COVID-19 Sepsis -Vitamin C, vitamin D, zinc -IV fluids - cefepime - ID recs Diarrhea -Obtain C. diff panel - C. diff negative -Likely secondary to opiate -Check magnesium, phosphorus, and electrolytes again in a.m. Afib -Cardiac monitoring -Cardiology recs - eliquis - coreg DM 2 -Not on medications at home -Follow blood sugars Chronic conditions: Chronic kidney disease, hypertension, hyperlipidemia -Continue with home meds -Creatinine at baseline DVT prophylaxis -Heparin subcu DVT Prophylaxis: Eliquis Discussed with: Patient Anticipated discharge date: 2-[address]: Home Objective - Vital Signs Vital signs: Vital Signs Temp 98.1 F 07/06/22 18:16 Pulse 67 07/06/22 18:16 Resp 19 07/06/22 14:55 BP 139/68 07/06/22 18:16 Pulse Ox 97 07/06/22 18:16 FiO2 Intake & Output 07/06/22 07/06/22 07/07/22 06:59 18:59 06:59 Intake Total 400 Output Total 400 Balance 400 -400 Weight 77.111 kg Intake: Oral 400 Output: Stool 400 Other: Voiding Method Diaper Incontinent # Voids 3 - Labs CBC & Chem 7: 07/06/22 05:13 07/06/22 05:13 Labs: Abnormal Lab Results - Last 24 Hours (Table) 07/05/22 07/06/22 07/06/22 Range/Units 20:47 05:13 05:13 WBC 27.08 H (4.50-10.00) X 10*3/uL RBC 3.59 L (4.40-5.60) X 10*6/uL Hgb 10.9 L (13.0-17.0) g/dL Hct 33.1 L (39.6-50.0) % Immature Gran # 0.35 H (0.00-0.04) X 10*3/uL Neutrophils # 23.04 H (1.80-7.70) X 10*3/uL Monocytes # 1.62 H (0.20-1.00) X 10*3/uL Chloride 111 H (96-109) mmol/L Carbon Dioxide 15.5 L (20.0-27.5) mmol/L BUN 38.3 H (9.0-27.0) mg/dL Creatinine 1.7 H (0.6-1.5) mg/dL Est GFR (CKD-EPI)AfAm 42.6 L (60.0-200.0) Est GFR (CKD-EPI)NonAf 36.7 L (60.0-200.0) BUN/Creatinine Ratio 22.53 H (12.00-20.00) Ratio Glucose 144 H (70-110) mg/dL POC Glucose (mg/dL) 136 H (70-110) mg/dL Calcium 7.8 L (8.7-10.3) mg/dL 07/06/22 07/06/22 07/06/22 Range/Units 06:47 11:42 16:24 WBC (4.50-10.00) X 10*3/uL RBC (4.40-5.60) X 10*6/uL Hgb (13.0-17.0) g/dL Hct (39.6-50.0) % Immature Gran # (0.00-0.04) X 10*3/uL Neutrophils # (1.80-7.70) X 10*3/uL Monocytes # (0.20-1.00) X 10*3/uL Chloride (96-109) mmol/L Carbon Dioxide (20.0-27.5) mmol/L BUN (9.0-27.0) mg/dL Creatinine (0.6-1.5) mg/dL Est GFR (CKD-EPI)AfAm (60.0-200.0) Est GFR (CKD-EPI)NonAf (60.0-200.0) BUN/Creatinine Ratio (12.00-20.00) Ratio Glucose (70-110) mg/dL POC Glucose (mg/dL) 164 H 281 H 165 H (70-110) mg/dL Calcium (8.7-10.3) mg/dL Microbiology - Last 24 Hours (Table) 07/04/22 16:44 Urine Culture - Final Urine,Catheterized Klebsiella pneumoniae 07/04/22 15:02 Blood Culture - Preliminary Blood No Growth after 48 hours 07/04/22 14:52 Blood Culture - Preliminary Blood No Growth after 48 hours 07/04/22 07:41 Blood Culture - Preliminary Blood No Growth after 48 hours
[2022-07-06] MEDS ORDERED: DEXTROSE 5% IN WATER 1,000 ML with SODIUM BICARB (1 MEQ/ML) 150 ML IV ONE (20:00)
[2022-07-06 20:34] LABS: Glucose,Whole Blood 186 mg/dL (70-110)
[2022-07-06] MEDS: PRAVASTATIN SODIUM 40 MG TAB PO SCH (21:42)
[2022-07-06] MEDS ORDERED: METOCLOPRAMIDE 5 MG/ML 2 ML VIAL IVP STA (23:50)
[2022-07-07] MEDS: CEFEPIME 2 GM in SODIUM CHLORIDE 0.9% 100 ML IVPB SCH (00:15)
[2022-07-07] MEDS: ONDANSETRON 4 MG/2 ML VIAL IVP PRN (03:38)
[2022-07-07 07:19] LABS: Glucose,Whole Blood 191 mg/dL (70-110)
[2022-07-07 08:47] LABS: HCT 34.3 % (39.6-50.0); HGB 11.3 g/dL (13.0-17.0); MCH 30.3 pg (27.0-32.0); MCHC 32.9 g/dL (32.0-37.0); Mean Platelet Volume 11.5 fL (9.5-12.2); NRBC Per 100 WBC 0 /100 WBCS (0.0-0.0); Platelet Count 224 X 10*3/uL (140-440); RBC 3.73 X 10*6/uL (4.40-5.60); RDW 13.3 % (11.5-14.5); WBC 20.59 X 10*3/uL (4.50-10.00)
[2022-07-07] MEDS: ASCORBIC ACID 500 MG TAB PO SCH (08:53)
[2022-07-07] MEDS: carvediloL 3.125 MG TAB PO SCH ×2 (08:53→17:09)
[2022-07-07] MEDS: LOSARTAN 25 MG TAB PO SCH (08:53)
[2022-07-07] MEDS: PARoxetine 20 MG TAB PO SCH (08:53)
[2022-07-07] MEDS: ZINC SULFATE 220 MG CAP PO SCH (08:53)
[2022-07-07] MEDS: APIXABAN 2.5 MG TABLET PO SCH ×2 (08:53→20:49)
[2022-07-07] MEDS: CHOLECALCIFEROL 25 MCG (1000 IU) TABLET PO SCH (08:53)
[2022-07-07 09:00] LABS: African American GFR (CKD) 50.4 (60.0-200.0); Albumin 3.3 g/dL (3.8-4.9); Albumin/Globulin Ratio 1.54 (1.60-3.17); Anion Gap 8.6 mmol/L (10.00-18.00); BUN/Creat Ratio 26.62 Ratio (12.00-20.00); Blood Urea Nitrogen 39.4 mg/dL (9.0-27.0); Calcium 7.9 mg/dL (8.7-10.3); Carbon Dioxide 22.7 mmol/L (20.0-27.5); Globulin 2.2 g/dL (1.6-3.3); Magnesium 1.9 mg/dL (1.5-2.4); Non-African American GFR(CKD) 43.4 (60.0-200.0); Phosphorus 2.3 mg/dL (2.4-5.1); Potassium 3.5 mmol/L (3.5-5.5); Total Bilirubin 0.5 mg/dL (0.30-1.20); Total Protein 5.5 g/dL (6.2-8.2)
--- NOTE | 2022-07-07 10:33 | P.PN ---
Subjective Progress Note Date: 07/06/22 Principal diagnosis: Fever/UTI Patient is a 82-year-old male presenting to the ER for evaluation of nausea vomiting and diarrhea patient did have a fever on presentation hospital elevated white count CT abdominal pelvis did not show any diverticular colitis or colitis did have positive UA concerning for UTI. On today's evaluation that is 07/06/2022 the patient is afebrile, the patient complained of feeling nauseous but no vomiting no abdominal or diarrhea did have a rectal tube no chest pain shortness of breath or cough Objective - Vital Signs Vital signs: Vital Signs Temp 97.5 F L 07/06/22 09:59 Pulse 68 07/06/22 09:59 Resp 20 07/06/22 09:59 BP 164/56 07/06/22 09:59 Pulse Ox 98 07/06/22 09:59 FiO2 Intake & Output 07/05/22 07/06/22 07/06/22 18:59 06:59 18:59 Intake Total 1140 400 Balance 1140 400 Intake: IV 1140 0.9 NACL 1040 Cefipime 100 Oral 400 Other: Voiding Method Diaper Diaper Incontinent # Voids 3 3 # Bowel Movements 1 - Exam GENERAL DESCRIPTION: An elderly male lying in bed in no distress RESPIRATORY SYSTEM: Unlabored breathing , decreased breath sounds at bases HEART: S1 S2 regular rate and rhythm , ABDOMEN: Soft , no tenderness EXTREMITIES: No edema feet - Labs CBC & Chem 7: 07/07/22 05:30 07/07/22 05:30 Labs: Abnormal Lab Results - Last 24 Hours (Table) 07/05/22 07/05/22 07/06/22 Range/Units 16:50 20:47 05:13 WBC (4.50-10.00) X 10*3/uL RBC (4.40-5.60) X 10*6/uL Hgb (13.0-17.0) g/dL Hct (39.6-50.0) % Immature Gran # (0.00-0.04) X 10*3/uL Neutrophils # (1.80-7.70) X 10*3/uL Monocytes # (0.20-1.00) X 10*3/uL Chloride 111 H (96-109) mmol/L Carbon Dioxide 15.5 L (20.0-27.5) mmol/L BUN 38.3 H (9.0-27.0) mg/dL Creatinine 1.7 H (0.6-1.5) mg/dL Est GFR (CKD-EPI)AfAm 42.6 L (60.0-200.0) Est GFR (CKD-EPI)NonAf 36.7 L (60.0-200.0) BUN/Creatinine Ratio 22.53 H (12.00-20.00) Ratio Glucose 144 H (70-110) mg/dL POC Glucose (mg/dL) 145 H 136 H (70-110) mg/dL Calcium 7.8 L (8.7-10.3) mg/dL 07/06/22 07/06/22 07/06/22 Range/Units 05:13 06:47 11:42 WBC 27.08 H (4.50-10.00) X 10*3/uL RBC 3.59 L (4.40-5.60) X 10*6/uL Hgb 10.9 L (13.0-17.0) g/dL Hct 33.1 L (39.6-50.0) % Immature Gran # 0.35 H (0.00-0.04) X 10*3/uL Neutrophils # 23.04 H (1.80-7.70) X 10*3/uL Monocytes # 1.62 H (0.20-1.00) X 10*3/uL Chloride (96-109) mmol/L Carbon Dioxide (20.0-27.5) mmol/L BUN (9.0-27.0) mg/dL Creatinine (0.6-1.5) mg/dL Est GFR (CKD-EPI)AfAm (60.0-200.0) Est GFR (CKD-EPI)NonAf (60.0-200.0) BUN/Creatinine Ratio (12.00-20.00) Ratio Glucose (70-110) mg/dL POC Glucose (mg/dL) 164 H 281 H (70-110) mg/dL Calcium (8.7-10.3) mg/dL Microbiology - Last 24 Hours (Table) 07/04/22 07:41 Blood Culture - Preliminary Blood No Growth after 48 hours 07/04/22 16:44 Urine Culture - Preliminary Urine,Catheterized Gram Neg Bacilli 07/04/22 14:52 Blood Culture - Preliminary Blood No Growth after 24 hours 07/04/22 15:02 Blood Culture - Preliminary Blood No Growth after 24 hours Assessment and Plan (1) UTI (urinary tract infection) Current Visit: Yes Status: Acute Code(s): N39.0 - URINARY TRACT INFECTION, SITE NOT SPECIFIED SNOMED Code(s): 75175491 Plan: 1patient present to the hospital with sepsis in this patient did have a fever elevated white count positive UA concerning for possible urinary source however the patient did have significant diarrhea C. difficile needs to be ruled out however there was no evidence of any colitis or diverticulitis on abdominal CT. 2stool for C. diff and currently negative stool culture pending 3patient to continue patient on cefepime while waiting for the cultures to finalize and monitor clinical course closely Time with Patient: Less than 30
[2022-07-07 11:45] LABS: Glucose,Whole Blood 189 mg/dL (70-110)
[2022-07-07] MEDS: SODIUM PHOSPHATE 10 MMOL in SODIUM CHLORIDE 0.9% 250 ML IVPB SCH ×2 (15:16→17:07)
--- NOTE | 2022-07-07 15:36 | CDI ---
Documentation Clarification Form Date: 07/07/2022 03:14:40 PM From: Cindy Maxwell RN CCDS Admit Date: 07/04/2022 01:11:00 AM Patient Name: Raymond Ibrahim Visit Number: [id number] Discharge Date: ATTENTION: The Clinical Documentation Specialists (CDI) and [facility] Coding Staff appreciate your assistance in clarifying documentation. Please respond to the clarification below the line at the bottom and electronically sign. The CDI & [facility] Coding staff will review the response and follow-up if needed. Please note: Queries are made part of the Legal Health Record. If you have any questions, please contact the author of this message via ITS. Dr. Brooklynn Alonso Encephalopathy is documented 07/06, medicine progress note. Additional clarification regarding the type of encephalopathy is requested. History/Risk Factors: 82-year-old male presents to the ED with fever, nausea, vomiting and diarrhea for one to two days. PCP gave antibiotics. Medical history: CKD, HTN, HLD and Gout. 07/03, ED Note. Clinical Indicators: VSS: 07/03 B/P 132/53; HR 84; Temp 97.8 F Oral; RR 16; SpO2 96% ra Labs: 07/03 Wb 21.1 Neutrophils 17.7; SARS-C-2 PCR Detected; Urine Culture: Klebsiella pneumoniae CT Brain: 07/04 Cerebral atrophy and hydrocephalus. Chronic small vessel ischemia. ID consult: 07/05 Patient presents to the hospital with sepsis, fever and wbc, positive ua concerning for source however patient did have significant diarrhea. Cardiology note: 07/05 he continues to be confused. Treatment: 07/03 0.9NS 1L bolus followed by 130cc/HR; 07/04 Zinc PO Daily; 07/04 Vitamin C PO Daily; 07/04 Vancomycin IVPB x 1; 07/04 Cefepime IVPB X 1; 07/04 Cefepime IVPB Q8HR changed to Q12HR d/cd 07/07 Consults: ID see above Please clarify the type of encephalopathy, if known: [ x ] Metabolic Encephalopathy [ ] Other, please specify [ ] Unable to determine (Template Last Revised: November 2020) MTDD
[2022-07-07 17:08] LABS: Glucose,Whole Blood 153 mg/dL (70-110)
[2022-07-07] MEDS: TAMSULOSIN 0.4 MG CAP.ER.24H PO SCH (17:09)
[2022-07-07] MEDS: PRAVASTATIN SODIUM 40 MG TAB PO SCH (20:49)
[2022-07-07 21:06] LABS: Glucose,Whole Blood 189 mg/dL (70-110)
--- NOTE | 2022-07-07 21:53 | P.PN ---
Subjective Progress Note Date: 07/07/22 The patient is an 82-year-old male with chronic kidney disease, hypertension, hyperlipidemia, gout, who presents to the emergency room with complaints of fever, nausea, vomiting, diarrhea. In the emergency room, the patient's laboratory evaluation was remarkable for leukocytosis of 21.1, BUN 34, creatinine 1.79, and coronairus PCR positive. Chest X-Ray was without acute process. He developed significant Diarrhea requiring a fecal management system. C. diff was negative. His diarreha improved slowly. Patient seen and examined at bedside. His diarrhea is better, nausea is resolved. He is still feeling very weak and tired. No shortness of breath. Up and sitting in chair today. General: nontoxic, no distress, appears at stated age Derm: warm, dry Head: atraumatic, normocephalic, symmetric Eyes: EOMI, no lid lag, anicteric sclera Mouth: no lip lesion, mucus membranes moist Cardiovascular: S1S2 reg, no murmur, positive posterior tibial pulse bilateral, Lungs: CTA bilateral, no rhonchi, no rales , no accessory muscle use Abdominal: soft, nontender to palpation, no guarding, no appreciable organomegaly Ext: no gross muscle atrophy, 1+ edema, no contractures Neuro: CN II-XI grossly intact, no focal neuro deficits Psych: Alert, oriented, appropriate affect Assessment/plan Acute encephalopathy Klebsiella Urinary tract infection COVID-19 Sepsis -Vitamin C, vitamin D, zinc -IV fluids - cefepime down graded to cefazolin with results of sensitivities - ID recs Metabolic acidosis - suspect related to diarrhea - improved with D5 with bicarb - repeat lytes in AM Diarrhea, Improved - fecal management system removed. - C. diff negative -Likely secondary to COVID Afib -Cardiac monitoring -Cardiology recs - eliquis - coreg DM 2 -Not on medications at home -Follow blood sugars Chronic conditions: Chronic kidney disease, hypertension, hyperlipidemia -Continue with home meds -Creatinine at baseline DVT prophylaxis -Heparin subcu DVT Prophylaxis: Eliquis Discussed with: Patient Anticipated discharge date: 2-[address]: Home Active Medications Generic Name Dose Route Start Last Admin Trade Name Freq PRN Reason Stop Dose Admin Acetaminophen 650 mg 07/04/22 01:11 07/05/22 03:08 Acetaminophen Tab 325 Mg Tab PO 650 mg Q6HR PRN Administration Mild Pain or Fever > 100.5 Acetaminophen 650 mg 07/04/22 14:54 Acetaminophen Suppository 650 Mg Supp RECTAL Q4HR PRN Fever Apixaban 2.5 mg 07/04/22 21:00 07/07/22 20:49 Apixaban 2.5 Mg Tablet PO 2.5 mg BID HARRIET Administration Protocol Ascorbic Acid 1,000 mg 07/04/22 09:00 07/07/22 08:53 Ascorbic Acid 500 Mg Tab PO 1,000 mg DAILY HARRIET Administration Carvedilol 3.125 mg 07/04/22 17:30 07/07/22 17:09 Carvedilol 3.125 Mg Tab PO 3.125 mg BID-W/MEALS HARRIET Administration Cholecalciferol 125 mcg 07/04/22 09:00 07/07/22 08:53 Cholecalciferol 25 Mcg (1000 Iu) Tablet PO 125 mcg DAILY HARRIET Administration Cefazolin Sodium 1,000 mg/ 50 mls @ 100 mls/hr 07/07/22 12:00 07/07/22 20:50 Sodium Chloride IVPB 100 mls/hr Q6HR HARRIET Administration Protocol Sodium Chloride 1,000 mls @ 75 mls/hr 07/07/22 21:45 Saline 0.9% IV .[id number] HARRIET Losartan Potassium 25 mg 07/06/22 11:00 07/07/22 08:53 Losartan 25 Mg Tab PO 25 mg DAILY HARRIET Administration Naloxone HCl 0.2 mg 07/04/22 01:11 Naloxone 0.4 Mg/Ml 1 Ml Vial IV Q2M PRN Opioid Reversal Ondansetron HCl 4 mg 07/05/22 15:40 07/07/22 03:38 Ondansetron 4 Mg/2 Ml Vial IVP 4 mg Q6HR PRN Administration Nausea And Vomiting Paroxetine HCl 20 mg 07/06/22 11:00 07/07/22 08:53 Paroxetine 20 Mg Tab PO 20 mg DAILY HARRIET Administration Pravastatin Sodium 40 mg 07/06/22 21:00 07/07/22 20:49 Pravastatin Sodium 40 Mg Tab PO 40 mg HS HARRIET Administration Tamsulosin HCl 0.4 mg 07/06/22 18:30 07/07/22 17:09 Tamsulosin 0.4 Mg Cap.Er.24h PO 0.4 mg PC-SUPPER HARRIET Administration Zinc Sulfate 220 mg 07/04/22 09:00 07/07/22 08:53 Zinc Sulfate 220 Mg Cap PO 220 mg DAILY HARRIET Administration Objective - Vital Signs Vital signs: Vital Signs Temp 99.9 F H 07/07/22 18:29 Pulse 68 07/07/22 18:29 Resp 18 07/07/22 19:35 BP 169/70 07/07/22 18:29 Pulse Ox 93 L 07/07/22 18:29 FiO2 Intake & Output 07/07/22 07/07/22 07/08/22 06:59 18:59 06:59 Intake Total 800 Output Total 800 Balance 0 Weight 77.5 kg Intake: Oral 800 Output: Urine 400 Stool 400 Other: Voiding Method Diaper Diaper External Catheter Incontinent Incontinent # Voids 3 3 - Labs CBC & Chem 7: 07/07/22 05:30 07/07/22 05:30 Labs: Abnormal Lab Results - Last 24 Hours (Table) 07/07/22 07/07/22 07/07/22 Range/Units 05:30 05:30 05:30 WBC 20.59 H (4.50-10.00) X 10*3/uL RBC 3.73 L (4.40-5.60) X 10*6/uL Hgb 11.3 L (13.0-17.0) g/dL Hct 34.3 L (39.6-50.0) % Anion Gap 8.60 L (10.00-18.00) mmol/L BUN 39.4 H (9.0-27.0) mg/dL Est GFR (CKD-EPI)AfAm 50.4 L (60.0-200.0) Est GFR (CKD-EPI)NonAf 43.4 L (60.0-200.0) BUN/Creatinine Ratio 26.62 H (12.00-20.00) Ratio Glucose 178 H (70-110) mg/dL POC Glucose (mg/dL) (70-110) mg/dL Calcium 7.9 L (8.7-10.3) mg/dL Phosphorus 2.3 L (2.4-5.1) mg/dL Total Protein 5.5 L (6.2-8.2) g/dL Albumin 3.3 L (3.8-4.9) g/dL Albumin/Globulin Ratio 1.54 L (1.60-3.17) g/dL Procalcitonin 1.59 H (0.02-0.09) ng/mL 07/07/22 07/07/22 07/07/22 Range/Units 07:17 11:42 17:04 WBC (4.50-10.00) X 10*3/uL RBC (4.40-5.60) X 10*6/uL Hgb (13.0-17.0) g/dL Hct (39.6-50.0) % Anion Gap (10.00-18.00) mmol/L BUN (9.0-27.0) mg/dL Est GFR (CKD-EPI)AfAm (60.0-200.0) Est GFR (CKD-EPI)NonAf (60.0-200.0) BUN/Creatinine Ratio (12.00-20.00) Ratio Glucose (70-110) mg/dL POC Glucose (mg/dL) 191 H 189 H 153 H (70-110) mg/dL Calcium (8.7-10.3) mg/dL Phosphorus (2.4-5.1) mg/dL Total Protein (6.2-8.2) g/dL Albumin (3.8-4.9) g/dL Albumin/Globulin Ratio (1.60-3.17) g/dL Procalcitonin (0.02-0.09) ng/mL Microbiology - Last 24 Hours (Table) 07/04/22 14:52 Blood Culture - Preliminary Blood No Growth after 72 hours 07/04/22 15:02 Blood Culture - Preliminary Blood No Growth after 72 hours 07/04/22 07:41 Blood Culture - Preliminary Blood No Growth after 72 hours 07/04/22 16:44 Urine Culture - Final Urine,Catheterized Klebsiella pneumoniae
[2022-07-07] MEDS: SODIUM CHLORIDE 0.9% 1,000 ML IV SCH (22:00)
[2022-07-08 07:25] LABS: Glucose,Whole Blood 204 mg/dL (70-110)
--- NOTE | 2022-07-08 08:11 | XR ---
EXAMINATION TYPE: XR chest 1V portable DATE OF EXAM: 07/08/2022 Comparison: 07/04/2022 Clinical History: 82-year-old male redness of breath, Possible aspiration Findings: Heart upper limits of normal in size. Aorta within normal limits. Interstitial prominence is similar. Mild patchy density right midlung and retrocardiac region. Relatively similar. Impression: 1. Similar borderline cardiomegaly and interstitial changes, possible mild pulmonary vascular congest ion. 2. Some patchy density at the right mid lung could represent atelectasis or developing infiltrate. Fo llow-up can be considered.
[2022-07-08] MEDS: APIXABAN 2.5 MG TABLET PO SCH ×2 (09:05→20:29)
[2022-07-08] MEDS: ASCORBIC ACID 500 MG TAB PO SCH (09:05)
[2022-07-08] MEDS: CHOLECALCIFEROL 25 MCG (1000 IU) TABLET PO SCH (09:05)
[2022-07-08] MEDS: SODIUM CHLORIDE 0.9% 1,000 ML IV SCH (09:06)
[2022-07-08] MEDS: carvediloL 3.125 MG TAB PO SCH ×2 (09:06→17:10)
[2022-07-08] MEDS: PARoxetine 20 MG TAB PO SCH (09:06)
[2022-07-08] MEDS: ZINC SULFATE 220 MG CAP PO SCH (09:06)
[2022-07-08] MEDS: LOSARTAN 25 MG TAB PO SCH (09:06)
[2022-07-08 10:42] LABS: HCT 30.4 % (39.6-50.0); HGB 10.3 g/dL (13.0-17.0); MCH 30.6 pg (27.0-32.0); MCHC 33.9 g/dL (32.0-37.0); MCV 90.2 fL (80.0-97.0); Mean Platelet Volume 10.7 fL (9.5-12.2); NRBC Per 100 WBC 0 /100 WBCS (0.0-0.0); Platelet Count 227 X 10*3/uL (140-440); RBC 3.37 X 10*6/uL (4.40-5.60); RDW 13.3 % (11.5-14.5); WBC 17.13 X 10*3/uL (4.50-10.00)
[2022-07-08] MEDS ORDERED: BENZONATATE 100 MG CAP PO PRN (10:51)
[2022-07-08] MEDS ORDERED: guaiFENesin 600 MG TABLET.ER PO SCH (11:00)
[2022-07-08 11:15] LABS: Glucose,Whole Blood 189 mg/dL (70-110)
[2022-07-08 11:26] LABS: African American GFR (CKD) 53.8 (60.0-200.0); Anion Gap 11.4 mmol/L (10.00-18.00); BUN/Creat Ratio 24.5 Ratio (12.00-20.00); Blood Urea Nitrogen 34.3 mg/dL (9.0-27.0); Calcium 7.5 mg/dL (8.7-10.3); Carbon Dioxide 20.6 mmol/L (20.0-27.5); Non-African American GFR(CKD) 46.5 (60.0-200.0); Potassium 3.3 mmol/L (3.5-5.5)
[2022-07-08 16:55] LABS: Glucose,Whole Blood 196 mg/dL (70-110)
[2022-07-08 16:59] VITALS: BMI 26.4
[2022-07-08] MEDS: TAMSULOSIN 0.4 MG CAP.ER.24H PO SCH (17:10)
--- NOTE | 2022-07-08 18:15 | P.PN ---
Subjective Progress Note Date: 07/08/22 (delayed charting seen 1045) The patient is an 82-year-old male with chronic kidney disease, hypertension, hyperlipidemia, gout, who presents to the emergency room with complaints of fever, nausea, vomiting, diarrhea. In the emergency room, the patient's laboratory evaluation was remarkable for leukocytosis of 21.1, BUN 34, creatinine 1.79, and coronairus PCR positive. Chest X-Ray was without acute process. He developed significant Diarrhea requiring a fecal management system. C. diff was negative. His diarrhea improved slowly. He continued to improve however he remained significantly weak. He was having a cough on thin liquids and therefore needed a modified diet. Patient seen and examined at bedside. He still feeling weak. Denies any shortness of breath. He is still having a sore throat and some difficulty swallowing. No diarrhea, no abdominal pain. General: nontoxic, no distress, appears at stated age Derm: warm, dry Head: atraumatic, normocephalic, symmetric Eyes: EOMI, no lid lag, anicteric sclera Mouth: no lip lesion, mucus membranes moist Cardiovascular: S1S2 reg, no murmur, positive posterior tibial pulse bilateral, Lungs: CTA bilateral, no rhonchi, no rales , no accessory muscle use Abdominal: soft, nontender to palpation, no guarding, no appreciable organo megaly Ext: no gross muscle atrophy, no edema edema, no contractures Neuro: CN II-XI grossly intact, no focal neuro deficits Psych: Alert, oriented, appropriate affect Assessment/plan Acute metabolic encephalopathy Klebsiella Urinary tract infection COVID-19 Sepsis -Vitamin C, vitamin D, zinc -IV fluids -Rocephin - ID recs Afib -Cardiac monitoring -Cardiology recs - eliquis - coreg DM 2 -Not on medications at home -Follow blood sugars Chronic conditions: Chronic kidney disease, hypertension, hyperlipidemia -Continue with home meds -Creatinine at baseline Metabolic acidosis , resolved Diarrhea, resolved DVT prophylaxis -Heparin subcu DVT Prophylaxis: Eliquis Discussed with: Patient Anticipated discharge date: 2-[address]: Home Active Medications Generic Name Dose Route Start Last Admin Trade Name Freq PRN Reason Stop Dose Admin Acetaminophen 650 mg 07/04/22 01:11 07/05/22 03:08 Acetaminophen Tab 325 Mg Tab PO 650 mg Q6HR PRN Administration Mild Pain or Fever > 100.5 Acetaminophen 650 mg 07/04/22 14:54 Acetaminophen Suppository 650 Mg Supp RECTAL Q4HR PRN Fever Apixaban 2.5 mg 07/04/22 21:00 07/08/22 09:05 Apixaban 2.5 Mg Tablet PO 2.5 mg BID HARRIET Administration Protocol Ascorbic Acid 1,000 mg 07/04/22 09:00 07/08/22 09:05 Ascorbic Acid 500 Mg Tab PO 1,000 mg DAILY HARRIET Administration Benzonatate 100 mg 07/08/22 10:51 07/08/22 11:46 Benzonatate 100 Mg Cap PO 100 mg TID PRN Administration Cough Carvedilol 3.125 mg 07/04/22 17:30 07/08/22 17:10 Carvedilol 3.125 Mg Tab PO 3.125 mg BID-W/MEALS HARRIET Administration Cholecalciferol 125 mcg 07/04/22 09:00 07/08/22 09:05 Cholecalciferol 25 Mcg (1000 Iu) Tablet PO 125 mcg DAILY HARRIET Administration Guaifenesin 600 mg 07/08/22 11:00 07/08/22 11:58 Guaifenesin 600 Mg Tablet.Er PO Not Given Q12HR [facility] Ceftriaxone Sodium 2 gm/ 50 mls @ 100 mls/hr 07/08/22 13:30 07/08/22 14:36 Sodium Chloride IVPB 100 mls/hr Q24HR HARRIET Administration Protocol Losartan Potassium 25 mg 07/06/22 11:00 07/08/22 09:06 Losartan 25 Mg Tab PO 25 mg DAILY HARRIET Administration Naloxone HCl 0.2 mg 07/04/22 01:11 Naloxone 0.4 Mg/Ml 1 Ml Vial IV Q2M PRN Opioid Reversal Ondansetron HCl 4 mg 07/05/22 15:40 07/07/22 03:38 Ondansetron 4 Mg/2 Ml Vial IVP 4 mg Q6HR PRN Administration Nausea And Vomiting Paroxetine HCl 20 mg 07/06/22 11:00 07/08/22 09:06 Paroxetine 20 Mg Tab PO 20 mg DAILY HARRIET Administration Pravastatin Sodium 40 mg 07/06/22 21:00 07/07/22 20:49 Pravastatin Sodium 40 Mg Tab PO 40 mg HS HARRIET Administration Tamsulosin HCl 0.4 mg 07/06/22 18:30 07/08/22 17:10 Tamsulosin 0.4 Mg Cap.Er.24h PO 0.4 mg PC-SUPPER HARRIET Administration Zinc Sulfate 220 mg 07/04/22 09:00 07/08/22 09:06 Zinc Sulfate 220 Mg Cap PO 220 mg DAILY HARRIET Administration Objective - Vital Signs Vital signs: Vital Signs Temp 98.4 F 07/08/22 14:00 Pulse 71 07/08/22 14:00 Resp 18 07/08/22 14:00 BP 145/74 07/08/22 14:00 Pulse Ox 97 07/08/22 14:00 FiO2 Intake & Output 07/07/22 07/08/22 07/08/22 18:59 06:59 18:59 Intake Total 800 Output Total 800 Balance 0 Weight 81 kg 81 kg Intake: Oral 800 Output: Urine 400 Stool 400 Other: Voiding Method Diaper External Catheter External Catheter Incontinent # Voids 3 2 - Labs CBC & Chem 7: 07/08/22 07:01 07/08/22 07:01 Labs: Abnormal Lab Results - Last 24 Hours (Table) 07/07/22 07/08/22 07/08/22 Range/Units 21:03 07:01 07:01 WBC 17.13 H (4.50-10.00) X 10*3/uL RBC 3.37 L (4.40-5.60) X 10*6/uL Hgb 10.3 L (13.0-17.0) g/dL Hct 30.4 L (39.6-50.0) % Potassium 3.3 L (3.5-5.5) mmol/L Chloride 110 H (96-109) mmol/L BUN 34.3 H (9.0-27.0) mg/dL Est GFR (CKD-EPI)AfAm 53.8 L (60.0-200.0) Est GFR (CKD-EPI)NonAf 46.5 L (60.0-200.0) BUN/Creatinine Ratio 24.50 H (12.00-20.00) Ratio Glucose 189 H (70-110) mg/dL POC Glucose (mg/dL) 189 H (70-110) mg/dL Calcium 7.5 L (8.7-10.3) mg/dL 07/08/22 07/08/22 07/08/22 Range/Units 07:23 11:13 16:53 WBC (4.50-10.00) X 10*3/uL RBC (4.40-5.60) X 10*6/uL Hgb (13.0-17.0) g/dL Hct (39.6-50.0) % Potassium (3.5-5.5) mmol/L Chloride (96-109) mmol/L BUN (9.0-27.0) mg/dL Est GFR (CKD-EPI)AfAm (60.0-200.0) Est GFR (CKD-EPI)NonAf (60.0-200.0) BUN/Creatinine Ratio (12.00-20.00) Ratio Glucose (70-110) mg/dL POC Glucose (mg/dL) 204 H 189 H 196 H (70-110) mg/dL Calcium (8.7-10.3) mg/dL Microbiology - Last 24 Hours (Table) 07/04/22 15:02 Blood Culture - Preliminary Blood No Growth after 96 hours 07/04/22 14:52 Blood Culture - Preliminary Blood No Growth after 96 hours 07/04/22 07:41 Blood Culture - Preliminary Blood No Growth after 96 hours
[2022-07-08] MEDS ORDERED: POTASSIUM CHLORIDE ER 20 MEQ TAB.ER PO STA (18:16)
[2022-07-08] MEDS ORDERED: guaiFENesin SYRUP 100MG/5ML 200 MG/10 ML CUP PO PRN (18:17)
[2022-07-08] MEDS: PRAVASTATIN SODIUM 40 MG TAB PO SCH (20:29)
[2022-07-08 20:51] LABS: Glucose,Whole Blood 218 mg/dL (70-110)
--- NOTE | 2022-07-08 23:36 | P.PN ---
Subjective Progress Note Date: 07/08/22 Principal diagnosis: Fever/UTI Patient is a 82-year-old male presenting to the ER for evaluation of nausea vomiting and diarrhea patient did have a fever on presentation hospital elevated white count CT abdominal pelvis did not show any diverticular colitis or colitis did have positive UA concerning for UTI. On today's evaluation that is 07/08/2022 the patient is afebrile, the patient is feeling slightly better today , the pt denies nausea/vomiting or any worsening diarrhea , pt denies chest pain shortness of breath or cough Objective - Vital Signs Vital signs: Vital Signs Temp 98.2 F 07/08/22 06:20 Pulse 80 07/08/22 06:20 Resp 24 07/08/22 09:37 BP 132/55 07/08/22 06:20 Pulse Ox 93 L 07/08/22 06:20 FiO2 Intake & Output 07/07/22 07/08/22 07/08/22 18:59 06:59 18:59 Intake Total 800 Output Total 800 Balance 0 Weight 81 kg Intake: Oral 800 Output: Urine 400 Stool 400 Other: Voiding Method Diaper External Catheter External Catheter Incontinent # Voids 3 2 - Exam GENERAL DESCRIPTION: An elderly male lying in bed in no distress RESPIRATORY SYSTEM: Unlabored breathing , decreased breath sounds at bases HEART: S1 S2 regular rate and rhythm , ABDOMEN: Soft , no tenderness EXTREMITIES: No edema feet - Labs CBC & Chem 7: 07/08/22 07:01 07/08/22 07:01 Labs: Abnormal Lab Results - Last 24 Hours (Table) 07/07/22 07/07/22 07/08/22 Range/Units 17:04 21:03 07:01 WBC 17.13 H (4.50-10.00) X 10*3/uL RBC 3.37 L (4.40-5.60) X 10*6/uL Hgb 10.3 L (13.0-17.0) g/dL Hct 30.4 L (39.6-50.0) % Potassium (3.5-5.5) mmol/L Chloride (96-109) mmol/L BUN (9.0-27.0) mg/dL Est GFR (CKD-EPI)AfAm (60.0-200.0) Est GFR (CKD-EPI)NonAf (60.0-200.0) BUN/Creatinine Ratio (12.00-20.00) Ratio Glucose (70-110) mg/dL POC Glucose (mg/dL) 153 H 189 H (70-110) mg/dL Calcium (8.7-10.3) mg/dL 07/08/22 07/08/22 07/08/22 Range/Units 07:01 07:23 11:13 WBC (4.50-10.00) X 10*3/uL RBC (4.40-5.60) X 10*6/uL Hgb (13.0-17.0) g/dL Hct (39.6-50.0) % Potassium 3.3 L (3.5-5.5) mmol/L Chloride 110 H (96-109) mmol/L BUN 34.3 H (9.0-27.0) mg/dL Est GFR (CKD-EPI)AfAm 53.8 L (60.0-200.0) Est GFR (CKD-EPI)NonAf 46.5 L (60.0-200.0) BUN/Creatinine Ratio 24.50 H (12.00-20.00) Ratio Glucose 189 H (70-110) mg/dL POC Glucose (mg/dL) 204 H 189 H (70-110) mg/dL Calcium 7.5 L (8.7-10.3) mg/dL Microbiology - Last 24 Hours (Table) 07/04/22 07:41 Blood Culture - Preliminary Blood No Growth after 96 hours 07/04/22 14:52 Blood Culture - Preliminary Blood No Growth after 72 hours 07/04/22 15:02 Blood Culture - Preliminary Blood No Growth after 72 hours Assessment and Plan (1) UTI (urinary tract infection) Current Visit: Yes Status: Acute Code(s): N39.0 - URINARY TRACT INFECTION, SITE NOT SPECIFIED SNOMED Code(s): 09177700 Plan: 1patient present to the hospital with sepsis in this patient did have a fever elevated white count positive UA concerning for possible urinary source however the patient did have significant diarrhea C. difficile needs to be ruled out however there was no evidence of any colitis or diverticulitis on abdominal CT. 2stool for C. diff and currently negative stool culture pending 3patient has shown clinical improvment and urine has been finalzied with Klebsiella , antibiotics will be switched to Rocephin for daily dose and better kidney penetration and finishing therapy with oral cipro Time with Patient: Less than 30
[2022-07-09 07:17] LABS: Glucose,Whole Blood 159 mg/dL (70-110)
[2022-07-09 08:46] LABS: HCT 32.4 % (39.0-53.0); HGB 10.8 gm/dL (13.0-17.5); Hypochromasia Slight; MCHC 33.2 g/dL (31.0-37.0); MCV 93.3 fL (80.0-100.0); Mean Platelet Volume 8.7; Platelet Count 202 k/uL (150-450); RBC 3.47 m/uL (4.30-5.90); RDW 13.4 % (11.5-15.5); WBC 13.3 k/uL (3.8-10.6)
[2022-07-09] MEDS: CHOLECALCIFEROL 25 MCG (1000 IU) TABLET PO SCH (08:56)
[2022-07-09 08:57] LABS: African American GFR (CKD) 61 (>60 ml/min/1.73 sqM); Anion Gap 10 mmol/L; Blood Urea Nitrogen 31 mg/dL (9-20); Calcium 7.7 mg/dL (8.4-10.2); Carbon Dioxide 20 mmol/L (22-30); Chloride 113 mmol/L (98-107); Glucose 158 mg/dL (74-99); Non-African American GFR(CKD) 53 (>60 ml/min/1.73 sqM); Potassium 3.5 mmol/L (3.5-5.1); Sodium 143 mmol/L (137-145)
[2022-07-09] MEDS: PARoxetine 20 MG TAB PO SCH (08:57)
[2022-07-09] MEDS: ASCORBIC ACID 500 MG TAB PO SCH (08:57)
[2022-07-09] MEDS: LOSARTAN 25 MG TAB PO SCH (08:57)
[2022-07-09] MEDS: APIXABAN 2.5 MG TABLET PO SCH (08:57)
[2022-07-09] MEDS: ZINC SULFATE 220 MG CAP PO SCH (08:57)
[2022-07-09] MEDS: carvediloL 3.125 MG TAB PO SCH (08:57)
--- NOTE | 2022-07-09 10:07 | P.DS ---
Providers Date of admission: 07/04/22 01:11 Expected date of discharge: 07/09/22 Attending physician: Nazia Lazcano MD Consults: 07/04/22 06:08 Consult Physician Urgent Consulting Provider: Clement Saeed Consult Reason/Comments: afib Do you want consulting provider notified?: Yes 07/04/22 18:16 Consult Physician Routine Consulting Provider: Reginaldo Lynn Consult Reason/Comments: Sepsis likley secondary to UTI Do you want consulting provider notified?: Yes [facility] Course: Discharge Diagnosis: Acute metabolic encephalopathy Klebsiella Urinary tract infection COVID-19 Sepsis Afib DM 2 Chronic kidney disease III Hypertension Hyperlipidemia Metabolic acidosis , resolved Diarrhea, resolved Hospital Course: The patient is an 82-year-old male with chronic kidney disease, hypertension, hyperlipidemia, gout, who presents to the emergency room with complaints of fever, nausea, vomiting, diarrhea. In the emergency room, the patient's laboratory evaluation was remarkable for leukocytosis of 21.1, BUN 34, creatinine 1.79, and coronairus PCR positive. Chest X-Ray was without acute process. He developed significant Diarrhea requiring a fecal management system. C. diff was negative. His diarrhea improved slowly. He continued to improve however he remained significantly weak. He was having a cough on thin liquids and therefore required a modified diet. As her sore throat improved he was able to be changed back to a regular diet. He was doing well. White blood cell Was resolving. He was determined stable for discharge home. Follow-up: CBC and basic metabolic profile in one week, [place] 8 additional days starting on 07/10 for complicated urinary tract infection with Klebsiella pneumonia. Patient seen and examined at bedside. Feeling better. Has more strength. Suspect okay last night. No additional diarrhea. Vital signs reviewed and stable. General: nontoxic, no distress, appears at stated age Derm: warm, dry Head: atraumatic, normocephalic, symmetric Eyes: EOMI, no lid lag, anicteric sclera Mouth: no lip lesion, mucus membranes moist Cardiovascular: S1S2 reg, no murmur, positive posterior tibial pulse bilateral, Lungs: CTA bilateral, no rhonchi, no rales , no accessory muscle use Abdominal: soft, nontender to palpation, no guarding, no appreciable organomegaly Ext: no gross muscle atrophy, no edema, no contractures Neuro: CN II-XI grossly intact, no focal neuro deficits Psych: Alert, oriented, appropriate affect A total of 45 minutes of time were spent preparing this complex discharge summary. Patient was discharged on 07/09/22. Patient Condition at Discharge: Stable Plan - Discharge Summary Discharge Rx Participant: Yes New Discharge Prescriptions: New guaiFENesin SYRUP 100MG/5ML [Robitussin] 200 mg PO Q6HR PRN ml PRN Reason: Cough Acetaminophen Suppository [Tylenol Suppository] 650 mg RECTAL Q4HR PRN suppositor PRN Reason: Fever Zinc Sulfate [Orazinc] 220 mg PO DAILY cap Benzonatate [Tessalon Perles] 100 mg PO TID PRN cap PRN Reason: Cough Cefpodoxime Proxetil [Vantin] 200 mg PO Q12HR #16 tab Continue Pravastatin Sodium [Pravachol] 40 mg PO HS Cholecalciferol [Vitamin D3 (25 Mcg = 1000 Iu)] 50 mcg PO DAILY carvediloL [Coreg] 3.125 mg PO BID Losartan [Cozaar] 25 mg PO DAILY Spironolactone [Aldactone] 12.5 mg PO DAILY allopurinoL [Zyloprim] 100 mg PO DAILY Tamsulosin [Flomax] 0.4 mg PO PC-SUPPER Famotidine [Pepcid] 20 mg PO BID Apixaban [Eliquis] 2.5 mg PO BID PARoxetine [Paxil] 20 mg PO DAILY Melatonin 3 mg PO HS Discontinued Niacin 500mg(No Flush) 1 tab PO DAILY Discharge Medication List Cholecalciferol [Vitamin D3 (25 Mcg = 1000 Iu)] 50 mcg PO DAILY 08/14/16 [History] Pravastatin Sodium [Pravachol] 40 mg PO HS 08/14/16 [History] carvediloL [Coreg] 3.125 mg PO BID 08/14/16 [History] Losartan [Cozaar] 25 mg PO DAILY 11/17/16 [History] Spironolactone [Aldactone] 12.5 mg PO DAILY 11/17/16 [History] allopurinoL [Zyloprim] 100 mg PO DAILY 01/27/19 [History] Apixaban [Eliquis] 2.5 mg PO BID 07/04/22 [History] Famotidine [Pepcid] 20 mg PO BID 07/04/22 [History] Melatonin 3 mg PO HS 07/04/22 [History] PARoxetine [Paxil] 20 mg PO DAILY 07/04/22 [History] Tamsulosin [Flomax] 0.4 mg PO PC-SUPPER 07/04/22 [History] Acetaminophen Suppository [Tylenol Suppository] 650 mg RECTAL Q4HR PRN suppositor 07/09/22 [Rx] Benzonatate [Tessalon Perles] 100 mg PO TID PRN cap 07/09/22 [Rx] Cefpodoxime Proxetil [Vantin] 200 mg PO Q12HR #16 tab 07/09/22 [Rx] Zinc Sulfate [Orazinc] 220 mg PO DAILY cap 07/09/22 [Rx] guaiFENesin SYRUP 100MG/5ML [Robitussin] 200 mg PO Q6HR PRN ml 07/09/22 [Rx] Follow up [facility], [[facility]] - As Needed Billy Yang DO [Primary Care Provider] - 1-2 days Activity/Diet/Wound Care/Special Instructions: Activity: as tolerated, fall precautions Diet: heart healthy Special Instructions: CBC and basic metabolic profile in one week diagnosis: COPD, leukocytosis Vantin 8 additional days starting on 07/10 for complicated urinary tract infection with Klebsiella pneumonia. Discharge Disposition: TRANSFER TO SNF/ECF
[2022-07-09 11:18] LABS: Glucose,Whole Blood 216 mg/dL (70-110)
--- NOTE | 2022-07-09 13:47 | P.PN ---
Progress Note - Text Progress Note Date: 07/09/22 Attempted to call X 4, no answer, no option to leave voicemail
[2022-07-09 14:44] VITALS: BP 133/68; PULSE 77; RESP 16; TEMP 97.8
[2022-07-09 16:43] LABS: Glucose,Whole Blood 144 mg/dL (70-110)
--- NOTE | 2022-08-21 15:51 | P.PN ---
Subjective Progress Note Date: 07/07/22 Principal diagnosis: Fever/UTI Patient is a 82-year-old male presenting to the ER for evaluation of nausea vomiting and diarrhea patient did have a fever on presentation hospital elevated white count CT abdominal pelvis did not show any diverticular colitis or colitis did have positive UA concerning for UTI. On today's evaluation that is 07/07/2022 the patient remains to be afebrile, the patient is feeling nauseous but no vomiting no abdominal and no worsening diarr hea , the pt denies chest pain shortness of breath or cough Objective - Vital Signs Vital signs: Vital Signs Temp 97.9 F 07/07/22 01:32 Pulse 65 07/07/22 01:32 Resp 18 07/07/22 09:19 BP 153/70 07/07/22 01:32 Pulse Ox 98 07/07/22 01:32 FiO2 Intake & Output 07/06/22 07/07/22 07/07/22 18:59 06:59 18:59 Output Total 400 400 Balance -400 -400 Weight 77.111 kg 77.5 kg Output: Stool 400 400 Other: Voiding Method Diaper Diaper Incontinent Incontinent # Voids 3 3 - Exam GENERAL DESCRIPTION: An elderly male lying in bed in no distress RESPIRATORY SYSTEM: Unlabored breathing , decreased breath sounds at bases HEART: S1 S2 regular rate and rhythm , ABDOMEN: Soft , no tenderness EXTREMITIES: No edema feet - Labs CBC & Chem 7: 07/09/22 07:56 07/09/22 07:56 Labs: Abnormal Lab Results - Last 24 Hours (Table) 07/06/22 07/06/22 07/06/22 Range/Units 11:42 16:24 20:32 WBC (4.50-10.00) X 10*3/uL RBC (4.40-5.60) X 10*6/uL Hgb (13.0-17.0) g/dL Hct (39.6-50.0) % Anion Gap (10.00-18.00) mmol/L BUN (9.0-27.0) mg/dL Est GFR (CKD-EPI)AfAm (60.0-200.0) Est GFR (CKD-EPI)NonAf (60.0-200.0) BUN/Creatinine Ratio (12.00-20.00) Ratio Glucose (70-110) mg/dL POC Glucose (mg/dL) 281 H 165 H 186 H (70-110) mg/dL Calcium (8.7-10.3) mg/dL Phosphorus (2.4-5.1) mg/dL Total Protein (6.2-8.2) g/dL Albumin (3.8-4.9) g/dL Albumin/Globulin Ratio (1.60-3.17) g/dL Procalcitonin (0.02-0.09) ng/mL 07/07/22 07/07/22 07/07/22 Range/Units 05:30 05:30 05:30 WBC 20.59 H (4.50-10.00) X 10*3/uL RBC 3.73 L (4.40-5.60) X 10*6/uL Hgb 11.3 L (13.0-17.0) g/dL Hct 34.3 L (39.6-50.0) % Anion Gap 8.60 L (10.00-18.00) mmol/L BUN 39.4 H (9.0-27.0) mg/dL Est GFR (CKD-EPI)AfAm 50.4 L (60.0-200.0) Est GFR (CKD-EPI)NonAf 43.4 L (60.0-200.0) BUN/Creatinine Ratio 26.62 H (12.00-20.00) Ratio Glucose 178 H (70-110) mg/dL POC Glucose (mg/dL) (70-110) mg/dL Calcium 7.9 L (8.7-10.3) mg/dL Phosphorus 2.3 L (2.4-5.1) mg/dL Total Protein 5.5 L (6.2-8.2) g/dL Albumin 3.3 L (3.8-4.9) g/dL Albumin/Globulin Ratio 1.54 L (1.60-3.17) g/dL Procalcitonin 1.59 H (0.02-0.09) ng/mL 07/07/22 Range/Units 07:17 WBC (4.50-10.00) X 10*3/uL RBC (4.40-5.60) X 10*6/uL Hgb (13.0-17.0) g/dL Hct (39.6-50.0) % Anion Gap (10.00-18.00) mmol/L BUN (9.0-27.0) mg/dL Est GFR (CKD-EPI)AfAm (60.0-200.0) Est GFR (CKD-EPI)NonAf (60.0-200.0) BUN/Creatinine Ratio (12.00-20.00) Ratio Glucose (70-110) mg/dL POC Glucose (mg/dL) 191 H (70-110) mg/dL Calcium (8.7-10.3) mg/dL Phosphorus (2.4-5.1) mg/dL Total Protein (6.2-8.2) g/dL Albumin (3.8-4.9) g/dL Albumin/Globulin Ratio (1.60-3.17) g/dL Procalcitonin (0.02-0.09) ng/mL Microbiology - Last 24 Hours (Table) 07/04/22 07:41 Blood Culture - Preliminary Blood No Growth after 72 hours 07/04/22 16:44 Urine Culture - Final Urine,Catheterized Klebsiella pneumoniae 07/04/22 15:02 Blood Culture - Preliminary Blood No Growth after 48 hours 07/04/22 14:52 Blood Culture - Preliminary Blood No Growth after 48 hours Assessment and Plan (1) UTI (urinary tract infection) Status: Acute Code(s): N39.0 - URINARY TRACT INFECTION, SITE NOT SPECIFIED SNOMED Code(s): 76822060 Plan: 1patient present to the hospital with sepsis in this patient did have a fever elevated white count positive UA concerning for possible urinary source however the patient did have significant diarrhea C. difficile needs to be ruled out h owever there was no evidence of any colitis or diverticulitis on abdominal CT. 2stool for C. diff and currently negative stool culture pending 3patient moy sshown clinical improvment and will continue patient on cefepime while waiting for the cultures to finalize and continue supportive care Time with Patient: Less than 30
--- NOTE | 2022-08-21 15:52 | P.PN ---
Subjective Progress Note Date: 07/09/22 Principal diagnosis: Fever/UTI Patient is a 82-year-old male presenting to the ER for evaluation of nausea vomiting and diarrhea patient did have a fever on presentation hospital elevated white count CT abdominal pelvis did not show any diverticular colitis or colitis did have positive UA concerning for UTI. On today's evaluation that is 07/09/2022 the patient denies any fever or any chills, the patient is breathing comfortably on room and denies any chest pain or shortness with a cough nausea has improved no abdominal pain or diarrhea Objective - Vital Signs Vital signs: Vital Signs Temp 97.6 F 07/09/22 08:00 Pulse 70 07/09/22 08:00 Resp 18 07/09/22 08:00 BP 150/77 07/09/22 08:00 Pulse Ox 96 07/09/22 08:00 FiO2 Intake & Output 07/08/22 07/09/22 07/09/22 18:59 06:59 18:59 Intake Total 120 Output Total 400 Balance -400 120 Weight 81 kg 83 kg Intake: Oral 120 Output: Urine 400 Other: Voiding Method External Catheter Diaper Incontinent # Voids 2 1 # Bowel Movements 1 - Exam GENERAL DESCRIPTION: An elderly male lying in bed in no distress RESPIRATORY SYSTEM: Unlabored breathing , decreased breath sounds at bases HEART: S1 S2 regular rate and rhythm , ABDOMEN: Soft , no tenderness EXTREMITIES: No edema feet - Labs CBC & Chem 7: 07/09/22 07:56 07/09/22 07:56 Labs: Abnormal Lab Results - Last 24 Hours (Table) 07/08/22 07/08/22 07/09/22 Range/Units 16:53 20:39 07:15 WBC (3.8-10.6) k/uL RBC (4.30-5.90) m/uL Hgb (13.0-17.5) gm/dL Hct (39.0-53.0) % Chloride (98-107) mmol/L Carbon Dioxide (22-30) mmol/L BUN (9-20) mg/dL Creatinine (0.66-1.25) mg/dL Glucose (74-99) mg/dL POC Glucose (mg/dL) 196 H 218 H 159 H (70-110) mg/dL Calcium (8.4-10.2) mg/dL 07/09/22 07/09/22 07/09/22 Range/Units 07:56 07:56 11:17 WBC 13.3 H (3.8-10.6) k/uL RBC 3.47 L (4.30-5.90) m/uL Hgb 10.8 L (13.0-17.5) gm/dL Hct 32.4 L (39.0-53.0) % Chloride 113 H (98-107) mmol/L Carbon Dioxide 20 L (22-30) mmol/L BUN 31 H (9-20) mg/dL Creatinine 1.26 H (0.66-1.25) mg/dL Glucose 158 H (74-99) mg/dL POC Glucose (mg/dL) 216 H (70-110) mg/dL Calcium 7.7 L (8.4-10.2) mg/dL Microbiology - Last 24 Hours (Table) 07/04/22 07:41 Blood Culture - Preliminary Blood No Growth after 120 hours 07/04/22 15:02 Blood Culture - Preliminary Blood No Growth after 96 hours 07/04/22 14:52 Blood Culture - Preliminary Blood No Growth after 96 hours Assessment and Plan (1) UTI (urinary tract infection) Status: Acute Code(s): N39.0 - URINARY TRACT INFECTION, SITE NOT SPECIFIED SNOMED Code(s): 82942489 Plan: 1patient present to the hospital with sepsis in this patient did have a fever elevated white count positive UA concerning for possible urinary source however the patient did have significant diarrhea C. difficile needs to be ruled out however there was no evidence of any colitis or diverticulitis on abdominal CT. 2stool for C. diff and currently negative stool culture pending 3patient urine has been finalized with Klebsiella that is sensitive to cefepime he will finish therapy with oral Ceftin and close outpatient follow-up
== END 2022-07-09 17:15 | DRG 871 ==
LOC: EC 22:43 → 4SSUR 07-04 01:11
PROVIDERS: ADMIT Internal Medicine; ATTEND Internal Medicine
PROC: 05HC33Z Insertion of Infusion Device into Left Basilic Vein, Percutaneous Approach (ICD-10-PCS; principal; 2022-07-07 16:55)
DX: A41.89 Other specified sepsis (principal); G93.41 Metabolic encephalopathy; U07.1 COVID-19; E87.20 Acidosis, unspecified; I48.21 Permanent atrial fibrillation; N39.0 Urinary tract infection, site not specified; E11.22 Type 2 diabetes mellitus with diabetic chronic kidney disease; N18.30 Chronic kidney disease, stage 3 unspecified; I12.9 Hypertensive chronic kidney disease with stage 1 through stage 4 chronic kidney disease, or unspecified chronic kidney disease; B96.1 Klebsiella pneumoniae [K. pneumoniae] as the cause of diseases classified elsewhere; R53.81 Other malaise; E78.5 Hyperlipidemia, unspecified; N40.0 Benign prostatic hyperplasia without lower urinary tract symptoms; K57.30 Diverticulosis of large intestine without perforation or abscess without bleeding; I25.10 Atherosclerotic heart disease of native coronary artery without angina pectoris; M10.9 Gout, unspecified; R13.10 Dysphagia, unspecified; Z28.310 Unvaccinated for COVID-19; Z79.899 Other long term (current) drug therapy; Z79.02 Long term (current) use of antithrombotics/antiplatelets; I25.2 Old myocardial infarction; Z79.01 Long term (current) use of anticoagulants
CPT/HCPCS: 36410; 36415; 70450; 71045; 74176; 76770; 76937; 80048; 80053; 81001; 83605; 83690; 83735; 84100; 84145; 85025; 85027; 87040; 87077; 87086; 87186; 87324; 87636; 93005; 96361; 96365; 96372; 96375; 99285

== ENCOUNTER 2022-07-20 13:24 | Emergency (ER) | payer MEDICARE ==
[2022-07-20 13:32] VITALS: PULSE 66; RESP 18; TEMP 96.9
--- NOTE | 2022-07-20 13:35 | ED ---
General Adult HPI - General Stated complaint: Fall Time Seen by Provider: 07/20/22 13:25 Source: patient, RN notes reviewed, old records reviewed - History of Present Illness Initial comments: This is an 82-year-old male presents emergency department with past medical history for atrial fibrillation and is on eliquis. Patient states she tripped over her shoes today at home and he fell back at the back of his head. Patient did not lose consciousness. Patient denies headache patient denies numbness weakness. Patient denies any neck pain. Patient states he never had any chest pain difficulty breathing or shortness of breath at any time per patient denies palpitations. Patient denies any injury to his back chest abdomen or any of his extremities. - Related Data Home Medications Medication Instructions Recorded Confirmed Cholecalciferol [Vitamin D3 (25 50 mcg PO DAILY 08/14/16 07/04/22 Mcg = 1000 Iu)] Pravastatin Sodium [Pravachol] 40 mg PO HS 08/14/16 07/04/22 carvediloL [Coreg] 3.125 mg PO BID 08/14/16 07/04/22 Losartan [Cozaar] 25 mg PO DAILY 11/17/16 07/04/22 Spironolactone [Aldactone] 12.5 mg PO DAILY 11/17/16 07/04/22 allopurinoL [Zyloprim] 100 mg PO DAILY 01/27/19 07/04/22 Apixaban [Eliquis] 2.5 mg PO BID 07/04/22 07/04/22 Famotidine [Pepcid] 20 mg PO BID 07/04/22 07/04/22 Melatonin 3 mg PO HS 07/04/22 07/04/22 PARoxetine [Paxil] 20 mg PO DAILY 07/04/22 07/04/22 Tamsulosin [Flomax] 0.4 mg PO PC-SUPPER 07/04/22 07/04/22 Previous Rx's Medication Instructions Recorded Acetaminophen Suppository [Tylenol 650 mg RECTAL Q4HR PRN suppositor 07/09/22 Suppository] Benzonatate [Tessalon Perles] 100 mg PO TID PRN cap 07/09/22 Cefpodoxime Proxetil [Vantin] 200 mg PO Q12HR #16 tab 07/09/22 Zinc Sulfate [Orazinc] 220 mg PO DAILY cap 07/09/22 guaiFENesin SYRUP 100MG/5ML 200 mg PO Q6HR PRN ml 07/09/22 [Robitussin] Allergies Allergy/AdvReac Type Severity Reaction Status Date / Time No Known Allergies Allergy Verified 07/20/22 13:32 Review of Systems ROS Statement: Those systems with pertinent positive or pertinent negative responses have been documented in the HPI. ROS Other: All systems not noted in ROS Statement are negative. Past Medical History Past Medical History: Atrial Fibrillation, Diabetes Mellitus, Hyperlipidemia, Hypertension, Myocardial Infarction (IA), Osteoarthritis (OA) Additional Past Medical History / Comment(s): sore lt upper arm,anemia,enlarged prostate,steroids w/in Jun 2016, gout Last Myocardial Infarction Date:: 2008 History of Any Multi-Drug Resistant Organisms: None Reported Past Surgical History: Heart Catheterization Additional Past Surgical History / Comment(s): karel cataracts Past Anesthesia/Blood Transfusion Reactions: No Reported Reaction Past Psychological History: Anxiety Past Alcohol Use History: None Reported Past Drug Use History: None Reported - Past Family History Mother History Unknown: Yes Father History Unknown: Yes Family Medical History: Hyperlipidemia General Exam - General Exam Comments Initial Comments: GENERAL: Patient is well-developed and well-nourished. Patient is nontoxic and well- hydrated and is in no acute distress. ENT: Neck is soft and supple. No significant lymphadenopathy is noted. Oropharynx is clear. Moist mucous membranes. Neck has full range of motion without eliciting any pain. EYES: The sclera were anicteric and conjunctiva were pink and moist. Extraocular movements were intact and pupils were equal round and reactive to light. Eyelids were unremarkable. PULMONARY: Unlabored respirations. Good breath sounds bilaterally. No audible rales rhonchi or wheezing was noted. CARDIOVASCULAR: There is a regular rate and rhythm without any murmurs gallops or rubs. ABDOMEN: Soft and nontender with normal bowel sounds. SKIN: Patient has a superficial abrasion to the scalp in the occipital region NEUROLOGIC: Patient is alert and oriented x3. Cranial nerves II through XII are grossly intact. Motor and sensory are also intact. Normal speech, volume and content. Symmetrical smile. MUSCULOSKELETAL: Normal extremities with adequate strength and full range of motion. LYMPHATICS: No significant lymphadenopathy is noted PSYCHIATRIC: Normal psychiatric evaluation. Course Vital Signs 10/24/22 13:27 Temperature 96.9 F L Pulse Rate 66 Respiratory 18 Rate Blood Pressure 132/53 O2 Sat by Pulse 95 Oximetry Medical Decision Making - Medical Decision Making EKG shows atrial fibrillation with multiple PVCs at a rate of 71 bpm QRS is 88 QT interval 396 QTC is 418. EKG shows no ST segment elevation CT of the brain and C-spine showed no acute abnormality. One pack and reevaluate the patient patient states he feels at his baseline he has no complaints he wants to be discharged. Disposition Clinical Impression: Fall, Head injury Disposition: HOME SELF-CARE Condition: Good Instructions (If sedation given, give patient instructions): Fall Prevention for Older Adults (ED), Head Injury (ED) Is patient prescribed a controlled substance at d/c from ED?: No Referrals: Mary Hernandez DO [Primary Care Provider] - 1-2 days Time of Disposition: 14:38
--- NOTE | 2022-07-20 14:23 | CT ---
EXAMINATION TYPE: CT brain tai payne con DATE OF EXAM: 07/20/2022 COMPARISON: July 04, 2022 HISTORY: Trauma. Fall. CT DLP: 1313.[address] of the brain was performed. The ventricles, basal cisterns and sulci overlying the cerebral convexities demonstrate mild to moder ate enlargement. There is no evidence for intracranial hemorrhage or sulcal effacement. There is decreased attenuatio n about the periventricular white matter and deep white matter of both cerebral hemispheres, compatib le with chronic small vessel ischemia. No mass effects are seen. If symptoms persist consider MRI. Osseous calvarium is intact. IMPRESSION: 1. Age related atrophic and chronic small vessel ischemic change without acute intracranial process seen at this time. CT Cervical Spine: Unenhanced CT of the cervical spine was performed with bone and soft tissue window settings submitted . Coronal and sagittal reconstruction is obtained. There is normal alignment and prevertebral soft tissues. No evidence for acute cervical fracture . Scattered degenerative disc disease and spondylosis. Postoperative changes of ACDF at C3-C5. Normal a lignment. Posterior hypertrophic ridging noted. Biapical scarring. IMPRESSION: 1. No evidence for acute fracture or subluxation of the cervical spine.
[2022-07-20 15:15] VITALS: BP 116/68
== END 2022-07-20 15:14 | disposition home or self-care (01) ==
LOC: EC 13:24
DX: S09.90XA Unspecified injury of head, initial encounter (principal); E11.9 Type 2 diabetes mellitus without complications; I10 Essential (primary) hypertension; I25.2 Old myocardial infarction; E78.5 Hyperlipidemia, unspecified; W01.0XXA Fall on same level from slipping, tripping and stumbling without subsequent striking against object, initial encounter
CPT/HCPCS: 70450; 72125; 93005; 99285

== ENCOUNTER → 2022-10-07 | Outpatient (CLI) | payer MEDICARE ==
--- NOTE | 2022-10-12 09:36 | NM ---
EXAMINATION TYPE: NM DatScan Brain SPECT DATE OF EXAM: 10/08/2022 COMPARISON: NONE HISTORY: G91.9, G91.2, R41.3 TECHNIQUE: 10 drops of Lugol's solution was administered 1 hour prior to injection as a thyroid bloc wild agent. After the administration of 5.07 mCi I-123 Ioflupane DaTscan. Images obtained 3 hours p ost injection. SPECT images of the brain were acquired with axial and coronal reconstructions. FINDINGS: The axial SPECT images demonstrate normal background activity. Accounting for head tilt, t here appears to be slight asymmetrically blunted comma-shaped appearance of the right corpus striatum . IMPRESSION: Slightly blunted striatal activity on the right may indicate early changes of idiopathic Parkinson's disease or Parkinsonian syndrome.
== END | disposition home or self-care (01) ==
LOC: RADNMMAIN 10:03
PROVIDERS: ATTEND Psychiatry & Neurology Neurology
DX: G91.2 (Idiopathic) normal pressure hydrocephalus (principal); R41.3 Other amnesia
CPT/HCPCS: 78803; A9584

== ENCOUNTER → 2023-04-28 | Outpatient (CLI) | payer MEDICARE ==
--- NOTE | 2023-04-28 11:43 | XR ---
EXAMINATION TYPE: XR abdomen 1V DATE OF EXAM: 04/28/2023 11:35 AM CLINICAL HISTORY: Nausea, diarrhea, vomiting TECHNIQUE: Supine view of the abdomen was obtained with the radiographs. COMPARISON: CT abdomen and pelvis 07/04/2022. FINDINGS: Scattered gas is seen in non-distended small bowel loops. Gas and fecal material is seen in non-distended colon. No abnormal calcifications. No convincing evidence for pneumoperitoneum. The tatiana ng bases are clear and the osseous structures are intact. Degenerative changes of the thoracolumbar s pine. IMPRESSION: Overall nonobstructive bowel gas pattern.
== END | disposition home or self-care (01) ==
LOC: RADXRYALE 11:22
PROVIDERS: ATTEND Physician Assistant Medical
DX: R11.2 Nausea with vomiting, unspecified (principal); R19.7 Diarrhea, unspecified
CPT/HCPCS: 74018

== ENCOUNTER 2023-08-20 13:16 | Inpatient (IN) | payer MEDICARE ==
--- NOTE | 2023-08-20 13:44 | ED ---
General Adult HPI - General Chief complaint: Altered Mental Status Stated complaint: Neuro deficits Time Seen by Provider: 08/20/23 13:31 Source: EMS Mode of arrival: EMS Limitations: no limitations - History of Present Illness Initial comments: Dictation was produced using [employer] dictation software. please excuse any grammatical, word or spelling errors. Chief Complaint: 83-year-old male with strokelike symptoms starting at 12pm History of Present Illness: This 83-year-old male has multiple comorbidities including A. fib. Takes anticoagulation medications. According to nurse received report from EMS he was having an argument with his when all the cyanosis noticed that patient was showing signs of confusion, word finding difficulties and slurred speech. He must call the patient is brought to the ER. Patient is a poor historian due to confusion. Unable to obtain ROS significant mental status - Related Data Home Medications Medication Instructions Recorded Confirmed carvediloL [Coreg] 3.125 mg PO BID 08/14/16 08/20/23 Losartan [Cozaar] 12.5 mg PO DAILY 11/17/16 08/20/23 Spironolactone [Aldactone] 12.5 mg PO DAILY 11/17/16 08/20/23 allopurinoL [Zyloprim] 100 mg PO DAILY 01/27/19 08/20/23 Apixaban [Eliquis] 2.5 mg PO BID 07/04/22 08/20/23 Famotidine [Pepcid] 20 mg PO DAILY 07/04/22 08/20/23 PARoxetine [Paxil] 20 mg PO HS 07/04/22 08/20/23 Tamsulosin [Flomax] 0.8 mg PO HS 07/04/22 08/20/23 Previous Rx's Medication Instructions Recorded Aspirin 81 mg PO DAILY #60 tab 08/23/23 Atorvastatin [Lipitor] 40 mg PO HS #60 tab 08/23/23 Cyanocobalamin (Vitamin B-12) 1,000 mcg PO DAILY #60 tablet 08/23/23 [Vitamin B-12] metFORMIN HCL ER [Glucophage XR] 500 mg PO DAILY #60 tab 08/23/23 Allergies Allergy/AdvReac Type Severity Reaction Status Date / Time temazepam [From Restoril] AdvReac Hallucinati Verified 08/20/23 15:13 ons Review of Systems ROS Statement: Those systems with pertinent positive or pertinent negative responses have been documented in the HPI. ROS Other: All systems not noted in ROS Statement are negative. Past Medical History Past Medical History: Atrial Fibrillation, Diabetes Mellitus, Hyperlipidemia, Hypertension, Myocardial Infarction (NE), Osteoarthritis (OA) Additional Past Medical History / Comment(s): sore lt upper arm,anemia,enlarged prostate,steroids w/in Jun 2016, gout Last Myocardial Infarction Date:: 2008 History of Any Multi-Drug Resistant Organisms: None Reported Past Surgical History: Heart Catheterization Additional Past Surgical History / Comment(s): karel cataracts Past Anesthesia/Blood Transfusion Reactions: No Reported Reaction Past Psychological History: Anxiety Past Alcohol Use History: None Reported Past Drug Use History: None Reported - Past Family History Mother History Unknown: Yes Father History Unknown: Yes Family Medical History: Hyperlipidemia General Exam - General Exam Comments Initial Comments: PHYSICAL EXAM: General Impression: Alert and oriented x3, not in acute distress HEENT: Normocephalic atraumatic, extra-ocular movements intact, pupils equal and reactive to light bilaterally, mucous membranes moist. Cardiovascular: Heart regular rate and rhythm Chest: Able to complete full sentences, no retractions, no tachypnea Abdomen: abdomen soft, non-tender, non-distended, no organomegaly Musculoskeletal: Pulses present and equal in all extremities, no peripheral edema Motor: no focal deficits noted Neurological: CN II-XII grossly intact, word finding difficulties, aphasia, right lower extremity drift. NIH of 3 Skin: Intact with no visualized rashes Psych: Normal affect and mood Limitations: no limitations Course Vital Signs 08/20/23 08/20/23 08/20/23 13:18 15:10 17:26 Pulse Rate 60 62 62 Respiratory 18 18 18 Rate Blood Pressure 157/64 150/68 153/85 O2 Sat by Pulse 98 96 99 Oximetry 08/20/23 08/20/23 08/21/23 18:26 20:00 00:00 Pulse Rate 55 L 87 64 Respiratory 18 20 18 Rate Blood Pressure 122/90 131/66 135/70 O2 Sat by Pulse 97 97 98 Oximetry 08/21/23 08/21/23 08/21/23 04:00 07:26 08:01 Pulse Rate 51 L 58 L Respiratory 16 18 Rate Blood Pressure 107/48 101/51 O2 Sat by Pulse 96 95 93 L Oximetry 08/21/23 08/21/23 08/21/23 08:26 09:26 09:48 Pulse Rate 49 L 51 L 47 L Respiratory 18 18 18 Rate Blood Pressure 127/62 129/55 O2 Sat by Pulse 95 98 Oximetry 08/21/23 11:20 Pulse Rate 60 Respiratory 18 Rate Blood Pressure 115/56 O2 Sat by Pulse 97 Oximetry - Reevaluation(s) Reevaluation #1: 08/20/23 13:44 Patient seen and evaluated in hallway #22. Clinical presentation concerning acute CVA. Patient is on anticoagulation medication not a candidate for alteplase. Code stroke paged. Any score of 3 with last normal around 12 PM. EKG Findings - EKG Comments: EKG Findings:: My EKG interpretation: Ventricular rate 59, A. fib, QRS 82, QTC 376. No MN prolongation, no QTC prolongation, no ST or T-wave changes noted. EKG compared to showing no changes. Overall, this EKG is unremarkable Medical Decision Making - Medical Decision Making Was pt. sent in by a medical professional or institution (, PA, MACHINE ASSEMBLER SUPERVISOR, urgent care, hospital, or [facility]...) When possible be specific @ -No Did you speak to anyone other than the patient for history (EMS, parent, family, police, friend...)? What history was obtained from this source @ -EMS as discussed above Did you review nursing and triage notes (agree or disagree)? Why? @ -I reviewed and agree with nursing and triage notes Were old charts reviewed (outside hosp., previous admission, EMS record, old EKG, old radiological studies, urgent care reports/EKG's, [facility] records)? Report findings @ -No old charts were reviewed Differential Diagnosis (chest pain, altered mental status, abdominal pain women, abdominal pain men, vaginal bleeding, musculoskeletal, weakness, fever, dyspnea, syncope, headache, dizziness, GI bleed, back pain, seizure, CVA, palpatations, mental health)? @ - Differential CVA: Ischemic stroke, hemorrhagic stroke, brain tumor, atypical migraine, Wernicke's encephalopathy, seizure, multiple sclerosis, meningitis, encephalitis, hypoglycemia, Guillain-Maxwell, electrolytes disturbance, myasthenia gravis.... This is not meant to be an all-inclusive list EKG interpreted by me (3pts min.). @ -As above X-rays interpreted by me (1pt min.). @ -Chest x-ray nonacute CT interpreted by me (1pt min.). @ -Computed tomography scan of brain is unremarkable for acute processes. CT angiography shows no large vessel occlusion U/S interpreted by me (1pt. min.). @ -None done What testing was considered but not performed or refused? (CT, X-rays, U/S, labs)? Why? @ -None What meds were considered but not given or refused? Why? @ -None Did you discuss the management of the patient with other professionals (professionals i.e. , PA, MACHINE ASSEMBLER SUPERVISOR, lab, RT, psych nurse, social media sr strategy manager, adjunct physical education instructor, teacher, property and supply officer, case sealer)? Give summary @ - stroke neurologist who agrees that patient not alteplase candidate. Discussed with hospitalist for hospital admission Was smoking cessation discussed for >3mins.? @ -No Was critical care preformed (if so, how long)? @ -33 minutes Were there social determinants of health that impacted care today? How? (Homele ssness, low income, unemployed, alcoholism, drug addiction, transportation, low edu. Level, literacy, decrease access to med. care, [place] [facility], rehab)? @ -No Was there de-escalation of care discussed even if they declined (Discuss DNR or withdrawal of care, Hospice)? DNR status @ -No What co-morbidities impacted this encounter? (DM, HTN, Smoking, COPD, CAD, Cancer, CVA, ARF, Chemo, Hep., AIDS, mental health diagnosis, sleep apnea, morbid obesity)? @ -None Was patient admitted / discharged? Hospital course, mention meds given and route, prescriptions, significant lab abnormalities, going to OR and other pertinent info. @ -83-year-old male presents emergency part for acute strokelike symptoms. Vital signs upon arrival are within acceptable limits. NIH score 3 on arrival. imaging studies are unremarkable for acute processes. Patient given aspirin. Patient be admitted to hospital with neurology consultation. Undiagnosed new problem with uncertain prognosis? @ -No Drug Therapy requiring intensive monitoring for toxicity (Heparin, Nitro, Insulin, Cardizem)? @ -No Were any procedures done? @ -No Diagnosis/symptom? Acute, or Chronic, or Acute on Chronic? Uncomplicated (without systemic symptoms) or Complicated (systemic symptoms)? @ -CVA Side effects of treatment? @ -No Exacerbation, Progression, or Severe Exacerbation? @ -No Poses a threat to life or bodily function? How? (Chest pain, [place], NE, pneumonia, PE, COPD, DKA, ARF, appy, cholecystitis, CVA, Diverticulitis, Homicidal, Suicidal, threat to staff... and all critical care pts) @ -Yes - Lab Data Result diagrams: 08/23/23 09:16 08/23/23 09:16 Lab Results 08/20/23 08/20/23 08/20/23 Range/Units 13:46 13:46 13:46 WBC 13.4 H (3.8-10.6) k/uL RBC 4.64 (4.30-5.90) m/uL Hgb 14.4 (13.0-17.5) gm/dL Hct 43.0 (39.0-53.0) % MCV 92.7 (80.0-100.0) fL MCH 31.1 (25.0-35.0) pg MCHC 33.6 (31.0-37.0) g/dL RDW 13.3 (11.5-15.5) % Plt Count 194 (150-450) k/uL MPV 8.4 Neutrophils % 59 % Lymphocytes % 33 % Monocytes % 5 % Eosinophils % 2 % Basophils % 1 % Neutrophils # 7.9 H (1.3-7.7) k/uL Lymphocytes # 4.4 (1.0-4.8) k/uL Monocytes # 0.6 (0-1.0) k/uL Eosinophils # 0.3 (0-0.7) k/uL Basophils # 0.1 (0-0.2) k/uL PT 11.6 (10.0-12.5) sec INR 1.1 (<1.2) APTT 24.8 (22.0-30.0) sec Sodium 140 (137-145) mmol/L Potassium 6.1 H* (3.5-5.1) mmol/L Chloride 108 H (98-107) mmol/L Carbon Dioxide 17 L (22-30) mmol/L Anion Gap 15 mmol/L BUN 34 H (9-20) mg/dL Creatinine 1.58 H (0.66-1.25) mg/dL Est GFR (CKD-EPI)AfAm 46 (>60 ml/min/1.73 sqM) Est GFR (CKD-EPI)NonAf 40 (>60 ml/min/1.73 sqM) Glucose 120 H (74-99) mg/dL POC Glucose (mg/dL) (70-110) mg/dL POC Glu Assembler Body ID Calcium 9.8 (8.4-10.2) mg/dL Total Bilirubin 1.3 (0.2-1.3) mg/dL AST 47 (17-59) U/L ALT 40 (4-49) U/L Alkaline Phosphatase 64 (38-126) U/L Creatine Kinase 44 L (55-170) U/L Troponin I (0.000-0.034) ng/mL Total Protein 8.2 (6.3-8.2) g/dL Albumin 4.9 (3.5-5.0) g/dL 08/20/23 08/20/23 08/20/23 Range/Units 13:46 13:50 14:43 WBC (3.8-10.6) k/uL RBC (4.30-5.90) m/uL Hgb (13.0-17.5) gm/dL Hct (39.0-53.0) % MCV (80.0-100.0) fL MCH (25.0-35.0) pg MCHC (31.0-37.0) g/dL RDW (11.5-15.5) % Plt Count (150-450) k/uL MPV Neutrophils % % Lymphocytes % % Monocytes % % Eosinophils % % Basophils % % Neutrophils # (1.3-7.7) k/uL Lymphocytes # (1.0-4.8) k/uL Monocytes # (0-1.0) k/uL Eosinophils # (0-0.7) k/uL Basophils # (0-0.2) k/uL PT (10.0-12.5) sec INR (<1.2) APTT (22.0-30.0) sec Sodium (137-145) mmol/L Potassium 4.6 (3.5-5.1) mmol/L Chloride (98-107) mmol/L Carbon Dioxide (22-30) mmol/L Anion Gap mmol/L BUN (9-20) mg/dL Creatinine (0.66-1.25) mg/dL Est GFR (CKD-EPI)AfAm (>60 ml/min/1.73 sqM) Est GFR (CKD-EPI)NonAf (>60 ml/min/1.73 sqM) Glucose (74-99) mg/dL POC Glucose (mg/dL) 131 H (70-110) mg/dL POC Glu Assembler Body ID Dany Mcgovern Calcium (8.4-10.2) mg/dL Total Bilirubin (0.2-1.3) mg/dL AST (17-59) U/L ALT (4-49) U/L Alkaline Phosphatase (38-126) U/L Creatine Kinase (55-170) U/L Troponin I 0.017 (0.000-0.034) ng/mL Total Protein (6.3-8.2) g/dL Albumin (3.5-5.0) g/dL Disposition Clinical Impression: CVA (cerebral vascular accident) Disposition: ADMITTED IP TO THIS HOSP Condition: Stable
[2023-08-20 13:51] LABS: Glucose,Whole Blood 131 mg/dL (70-110)
--- NOTE | 2023-08-20 13:56 | CT ---
EXAMINATION TYPE: CT brain wo con DATE OF EXAM: 08/20/2023 COMPARISON: 07/20/2022 HISTORY: Rt leg weakness, aphasia CT DLP: 1099.[address] of the brain was performed. The ventricles, basal cisterns and sulci overlying the cerebral convexities demonstrate mild enlargem ent. There is no evidence for intracranial hemorrhage or sulcal effacement. There is decreased attenuation about the periventricular white matter and deep white matter of both c erebral hemispheres, compatible with chronic small vessel ischemia. Differential diagnosis does inclu de demyelination. No mass effects are seen.No midline shift. Osseous calvarium is intact. If symptoms persist consider MRI. IMPRESSION: 1. Age related atrophic and chronic small vessel ischemic change without acute intracranial process s een at this time.
[2023-08-20 14:09] LABS: Basophils # (A) 0.1 k/uL (0-0.2); Basophils % (A) 1 %; Eosinophils # (A) 0.3 k/uL (0-0.7); Eosinophils % (A) 2 %; HGB 14.4 gm/dL (13.0-17.5); Lymphocytes # (A) 4.4 k/uL (1.0-4.8); Lymphocytes % (A) 33 %; MCH 31.1 pg (25.0-35.0); MCHC 33.6 g/dL (31.0-37.0); MCV 92.7 fL (80.0-100.0); Mean Platelet Volume 8.4; Monocytes # (A) 0.6 k/uL (0-1.0); Monocytes % (A) 5 %; Neutrophils # (A) 7.9 k/uL (1.3-7.7); Neutrophils % (A) 59 %; Platelet Count 194 k/uL (150-450); RBC 4.64 m/uL (4.30-5.90); RDW 13.3 % (11.5-15.5); WBC 13.4 k/uL (3.8-10.6)
[2023-08-20 14:20] LABS: ALT 40 U/L (4-49); African American GFR (CKD) 46 (>60 ml/min/1.73 sqM); Albumin 4.9 g/dL (3.5-5.0); Anion Gap 15 mmol/L; Blood Urea Nitrogen 34 mg/dL (9-20); Calcium 9.8 mg/dL (8.4-10.2); Carbon Dioxide 17 mmol/L (22-30); Chloride 108 mmol/L (98-107); Glucose 120 mg/dL (74-99); INR 1.1 (<1.2); Non-African American GFR(CKD) 40 (>60 ml/min/1.73 sqM); Partial Thromboplastin Time 24.8 sec (22.0-30.0); Prothrombin Time 11.6 sec (10.0-12.5); Sodium 140 mmol/L (137-145)
--- NOTE | 2023-08-20 14:21 | CT ---
EXAMINATION TYPE: CT angio head neck CT DLP: 471.7 mGycm, Automated exposure control for dose reduction was used. DATE OF EXAM: 08/20/2023 2:11 PM COMPARISON: CT brain 08/20/2023.. CLINICAL INDICATION:Male, 83 years old with history of Neuro deficit, acute, stroke suspected; PHH, R t leg weakness, aphasia TECHNIQUE: Axially acquired helical CT angiogram of the head and neck was obtained with contrast. Axi al images are supplemented with 3D reconstructions and MIP images which were post-processed at an in dependent workstation. NASCET criteria used. Contrast used:65 mL of Isovue 300 with IV Contrast, Oral contrast used: None. FINDINGS: CTA HEAD: No evidence of acute intracranial hemorrhage, mass effect, or midline shift. The ventricles, sulci, a nd cisterns are unremarkable. Atherosclerosis at the carotid siphons bilaterally. The visualized portions of the internal carotid arteries, middle cerebral arteries, anterior cerebral arteries, and posterior cerebral arteries are patent. origin of the right posterior cerebral a rtery. The basilar and vertebral arteries are patent. CTA NECK: Right Carotid System: The common carotid and external carotid arteries are patent. There is less than 50-70 % stenosis at t he carotid bifurcation secondary to calcified/noncalcified plaque. The rest of the internal carotid a rtery is patent. Left Carotid System: The common carotid and external carotid arteries are patent. There is less than 50 % stenosis at the carotid bifurcation secondary to calcified/noncalcified plaque. The rest of the internal carotid heather ry is patent. Vertebral arteries are patent without evidence hemodynamically significant stenosis. There is a three-vessel aortic arch. The origins of the great vessels are patent. No evidence of hemo dynamically significant stenosis. IMPRESSION: 1. No evidence of dissection of the cervical internal carotid arteries or vertebral arteries. 2. No evidence of intracranial high-grade stenosis or intracranial aneurysm. 3. Atherosclerotic plaque at the carotid bifurcations with at least 50-70% stenosis on the right and up to 50% stenosis on the left.
[2023-08-20] MEDS ORDERED: ASPIRIN 81 MG PO STA (14:24)
--- NOTE | 2023-08-20 14:27 | XR ---
EXAMINATION TYPE: XR chest 2V DATE OF EXAM: 08/20/2023 COMPARISON: 07/08/2022 HISTORY: Shortness of breath TECHNIQUE: Frontal and lateral views of the chest are obtained. FINDINGS: Scattered senescent parenchymal changes noted. Hyperinflation compatible with COPD. No evidence for infiltrate. No evidence for atelectasis. Heart size is stable. Mediastinal structures are stable and grossly unremarkable. No evidence for hilar prominence. Degenerative changes dorsal spine. IMPRESSION: 1. No evidence for acute pulmonary disease.
[2023-08-20 14:36] LABS: AST 47 U/L (17-59); Alkaline Phosphatase 64 U/L (38-126); Creatine Kinase 44 U/L (55-170); Potassium 6.1 mmol/L (3.5-5.1); Total Bilirubin 1.3 mg/dL (0.2-1.3); Total Protein 8.2 g/dL (6.3-8.2)
[2023-08-20] MEDS ORDERED: NALOXONE 0.4 MG/ML 1 ML VIAL IV PRN (14:44)
[2023-08-20] MEDS ORDERED: SODIUM CHLORIDE 0.9% 1,000 ML IV STA (14:54)
[2023-08-20] MEDS: SODIUM CHLORIDE 0.9% 1,000 ML IV SCH (15:07)
--- NOTE | 2023-08-20 15:34 | P.HPIM ---
History of Present Illness H&P Date: 08/20/23 Patient is a 83-year-old male with history of chronic kidney disease, hypertension, dyslipidemia, gout presenting with strokelike symptoms. Patient is currently having dysarthria and aphasia. is at bedside. She claims that they're having an argument and around noon she started notice facial droop and garbled speech. EMS was called. Patient himself denies any chest pain, shortness of breath, abdominal pain, nausea, vomiting, urinary or bowel complaints. He occasionally does have urinary incontinence. He denies any recent fevers or chills or travel history. In the ED, temperature was within normal limits, pulse 60, respiratory rate 18, blood pressure 157/64, saturating at 98% on room air. WBC 13.4, potassium 6.1 with slight hemolysis, bicarb 17, BUN 34, creatinine 1.58 likely at baseline, glucose 120, CK 44, troponin 0.017. Chest x-ray independently interpreted, shows no acute process. Brain CT does not show any acute process. CTA head and neck does not show any acute process. Atherosclerotic plaque noted carotid bifurcation with at least 50-70% stenosis on the right and up to 50% stenosis on the left. Patient admitted for new strokelike symptoms. Unable to get TPA as patient is already on Eliquis. Neurology is consulted. Pertinent positives and negatives as discussed in HPI, a complete review of systems was performed and all other systems are negative. Patient seen and examined at bedside. Vital signs reviewed General: nontoxic, no distress, appears at stated age Derm: warm, dry Head: atraumatic, normocephalic, symmetric Eyes: EOMI, no lid lag, anicteric sclera, pupils equal round reactive to light ENT: Nose and ears atraumatic Neck: No thyromegaly, supple Mouth: no lip lesion, mucus membranes moist Cardiovascular: S1S2 reg, no murmur, no edema Lungs: clear to auscultation bilateral, no rhonchi, no rales, no wheeze, no accessory muscle use Abdominal: soft, nontender to palpation, no guarding, no appreciable organomegaly Ext: no gross muscle atrophy, muscle strength muscle strength 5 out of 5 in all 4 extremities, no contractures Neuro: CN II-XII grossly intact, expressive aphasia and dysarthria, extension, Psych: Alert, oriented, appropriate affect Assessment/Plan: Active: Acute CVA Hypertension Dyslipidemia Atrial fibrillation -Allow permissive hypertension, we will hold antihypertensives -Neurology consulted -Aspirin 81 mg daily, atorvastatin 40 mg daily -Continue Eliquis, we will continue carvedilol -Telemetry -Neuro checks -Echocardiogram ordered, carotid ultrasound ordered -TSH, A1c, B12 ordered -PT/OT/speech therapy Chronic kidney disease stage III Hyperkalemia, with hemolysis Metabolic acidosis -Repeat potassium ordered -Repeat BMP tomorrow Chronic: Gout The patient is admitted with an anticipated greater than 2 midnight stay as inpatient status for evaluation of acute CVA . Surrogate decision-maker: Spouse CODE STATUS: Full code DVT prophylaxis: Eliquis Anticipated discharge date: Pending clinical course Anticipated discharge place: Pending clinical course A total of 55 minutes was spent on the care of this complex patient more than 50% of the time was spent in counseling and care coordination. Past Medical History Past Medical History: Atrial Fibrillation, Diabetes Mellitus, Hyperlipidemia, Hypertension, Myocardial Infarction ([place]), Osteoarthritis (OA) Additional Past Medical History / Comment(s): sore lt upper arm,anemia,enlarged prostate,steroids w/in Jun 2016, gout Last Myocardial Infarction Date:: 2008 History of Any Multi-Drug Resistant Organisms: None Reported Past Surgical History: Heart Catheterization Additional Past Surgical History / Comment(s): karel cataracts Past Anesthesia/Blood Transfusion Reactions: No Reported Reaction Past Psychological History: Anxiety Past Alcohol Use History: None Reported Past Drug Use History: None Reported - Past Family History Mother History Unknown: Yes Father History Unknown: Yes Family Medical History: Hyperlipidemia Medications and Allergies Home Medications Medication Instructions Recorded Confirmed Type carvediloL [Coreg] 3.125 mg PO BID 08/14/16 08/20/23 History Losartan [Cozaar] 12.5 mg PO DAILY 11/17/16 08/20/23 History Spironolactone [Aldactone] 12.5 mg PO DAILY 11/17/16 08/20/23 History allopurinoL [Zyloprim] 100 mg PO DAILY 01/27/19 08/20/23 History Apixaban [Eliquis] 2.5 mg PO BID 07/04/22 08/20/23 History Famotidine [Pepcid] 20 mg PO DAILY 07/04/22 08/20/23 History PARoxetine [Paxil] 20 mg PO HS 07/04/22 08/20/23 History Tamsulosin [Flomax] 0.8 mg PO HS 07/04/22 08/20/23 History Atorvastatin [Lipitor] 10 mg PO HS 08/20/23 08/20/23 History Allergies Allergy/AdvReac Type Severity Reaction Status Date / Time temazepam [From Restoril] AdvReac Hallucinati Verified 08/20/23 15:13 ons Physical Exam Vitals: Vital Signs Pulse Resp BP Pulse Ox 08/20/23 15:10 62 18 150/68 96 08/20/23 13:18 60 18 157/64 98 Intake and Output 08/20/23 08/20/23 08/20/23 06:59 14:59 22:59 Other: Weight 77.111 kg Results CBC & Chem 7: 08/20/23 13:46 08/20/23 14:43 Labs: Abnormal Lab Results - Last 24 Hours (Table) 08/20/23 08/20/23 08/20/23 Range/Units 13:46 13:46 13:50 WBC 13.4 H (3.8-10.6) k/uL Neutrophils # 7.9 H (1.3-7.7) k/uL Potassium 6.1 H* (3.5-5.1) mmol/L Chloride 108 H (98-107) mmol/L Carbon Dioxide 17 L (22-30) mmol/L BUN 34 H (9-20) mg/dL Creatinine 1.58 H (0.66-1.25) mg/dL Glucose 120 H (74-99) mg/dL POC Glucose (mg/dL) 131 H (70-110) mg/dL Creatine Kinase 44 L (55-170) U/L
[2023-08-20] MEDS: carvediloL 3.125 MG TAB PO SCH (17:48)
--- NOTE | 2023-08-20 19:25 | US ---
EXAMINATION TYPE: US carotid duplex BILAT DATE OF EXAM: 08/20/2023 COMPARISON: NONE CLINICAL INDICATION: Male, 83 years old with history of stroke; stroke TECHNIQUE: Carotid duplex ultrasound examination. Indirect Doppler criteria was utilized. FINDINGS: EXAM MEASUREMENTS: RIGHT: Peak Systolic Velocity (PSV) cm/sec ----- Right CCA: 75.4 ----- Right ICA: 114 ----- Right ECA: 137 ICA/CCA ratio: 1.5 RIGHT: End Diastole cm/sec ----- Right CCA: 7.8 ----- Right ICA: 14.2 ----- Right ECA: 10.1 LEFT: Peak Systolic Velocity (PSV) cm/sec ----- Left CCA: 72.9 ----- Left ICA: 63.9 ----- Left ECA: 156 ICA/CCA ratio: .9 LEFT: End Diastole cm/sec ----- Left CCA: 1.0 ----- Left ICA: .82 ----- Left ECA: 0 VERTEBRALS (direction of flow): Right Vertebral: Antegrade Left Vertebral: Antegrade Rhythm: Normal EARLY YEARS TEACHER NOTES: No significant stenosis seen IMPRESSION: No evidence for hemodynamically significant stenosis. Criteria for Assigning % of Stenosis / Diameter reduction (Estimation based on the indirect measurements of the internal carotid artery velocities (ICA PSV). 1. Normal (no stenosis)=ICA PSV < 125 cm/s: ratio < 2.0: ICA EDV<40 cm/s. 2. Less than 50% stenosis=ICA PSV < 125 cm/s: ratio < 2.0: ICA EDV<40 cm/s. 3. 50 to 69% stenosis=ICA PSV of 125 to 230 cm/s: ration 2.0 ? 4.0: ICA EDV 40-100 cm/s. 4. Greater than 70% stenosis to near occlusion= ICA PSV > 230 cm/s: ratio > 4.0: ICA EDV > 100 cm/s. 5. Near occlusion= ICA PSV velocities may be low or undetectable: variable ratio and ICA EDV. 6. Total occlusion=unable to detect flow.
[2023-08-20] MEDS: TAMSULOSIN 0.4 MG CAP.ER.24H PO SCH (22:10)
[2023-08-20] MEDS: PARoxetine 20 MG TAB PO SCH (22:11)
[2023-08-20] MEDS: APIXABAN 2.5 MG TABLET PO SCH (22:11)
[2023-08-20] MEDS: ATORVASTATIN 40 MG TAB PO SCH (22:11)
--- NOTE | 2023-08-21 07:25 | P.CNNES ---
History of Present Illness Consult date: 08/20/23 Requesting physician: Shabbir Bautista Reason for Consult: CVA History of Present Illness: Patient is a 83-year-old right-handed male came to the hospital by ambulance today at 1:16 PM for slurred speech. Patient states the symptoms started at around 12 noon, was awake and not doing anything much when symptoms started. He couldn't talk or communicate, couldn't concentrate. His vision was slightly blurred bilaterally. No loss of vision or diplopia. No numbness or tingling or focal weakness. There was no facial droop noticed. Patient denies any history of strokes or TIA. Patient admits to having slight headache left frontal region 11/06. He usually does not get headache. Patient's called the ambulance and he was brought to the hospital. As per EMS flow sheet, when they arrived, patient was having slurred speech. Patient was alert and oriented 4 and was able to answer questions appropriately. Family was concerned that patient is slurring speech. Patient got into an argument with his on the scene and got upset and started to slur his speech. Patient's speech was still slurred for EMS. There was no arm drift or facial droop. His slurred speech went away in 10 minutes of EMS being with him. Patient was having some speech issues following Covid , but today was worse. Patient initially was struggling to remember words he was trying to communicate, but within 10 minutes with EMS, that has gone away. Patient's 12- lead EKG showed atrial fibrillation. Patient has history of atrial fibrillation on blood thinner. Patient's vitals at the scene was blood pressure 158/66, pulse rate 66 respiration 18, blood sugar 168. Blood test with normal CBC with slightly elevated WBC 13.4. PT/PTT normal, sodium normal, potassium 4.6, BUN 34 creatinine 1.58. Hepatic panel is normal, troponin and CPK normal. EKG shows atrial fibrillation with slow ventricular response. CT head showed age-related atrophic and chronic small vessel ischemic change without acute intracranial process. I personally reviewed CT head agree with the findings. Chest x-ray showed no evidence for acute pulmonary disease. Patient's NIH stroke scale reported in the ER was 3. Stroke code was activated. He was not a candidate for TPA because of being on Eliquis. Patient is a nonsmoker. He has diabetes and states the last A1c was around 7. Patient denies hyperlipidemia, does not know any history of hypertension. No history of pacemaker. At present patient feels that he is about 90% back to baseline. He still has minimal about 10% speech deficit. He lives with his and grandson. He has been using walker for a long time because he used to stumble. He does take Eliquis regularly, without missing the dose. Review of Systems Constitutional: Denies chills, Denies fever Eyes: bilateral blurred vision, denies diplopia, denies pain Ears: deny: decreased hearing, ear discharge Ears, nose, mouth and throat: Reports headache, Denies sore throat Cardiovascular: Denies chest pain, Denies shortness of breath Respiratory: Denies cough, Denies excessive sputum Gastrointestinal: Reports nausea, Denies abdominal pain, Denies diarrhea, Denies vomiting (Just a little bit) Genitourinary: Reports incontinence, Reports urinary hesitancy, Denies dysuria Musculoskeletal: Denies low back pain, Denies myalgias, Denies neck pain Integumentary: Denies pruritus, Denies rash Neurological: Reports as per HPI Psychiatric: Reports anxiety, Denies depression Hematologic/Lymphatic: Reports easy bruising, Denies easy bleeding Past Medical History Past Medical History: Atrial Fibrillation, Diabetes Mellitus, Hyperlipidemia, Hypertension, Myocardial Infarction (AR), Osteoarthritis (OA) Additional Past Medical History / Comment(s): sore lt upper arm,anemia,enlarged prostate,steroids w/in Jun 2016, gout Last Myocardial Infarction Date:: 2008 History of Any Multi-Drug Resistant Organisms: None Reported Past Surgical History: Heart Catheterization Additional Past Surgical History / Comment(s): karel cataracts Past Anesthesia/Blood Transfusion Reactions: No Reported Reaction Past Psychological History: Anxiety Past Alcohol Use History: None Reported Past Drug Use History: None Reported - Past Family History Mother History Unknown: Yes Father History Unknown: Yes Family Medical History: Hyperlipidemia Medications and Allergies Home Medications Medication Instructions Recorded Confirmed Type carvediloL [Coreg] 3.125 mg PO BID 08/14/16 08/20/23 History Losartan [Cozaar] 12.5 mg PO DAILY 11/17/16 08/20/23 History Spironolactone [Aldactone] 12.5 mg PO DAILY 11/17/16 08/20/23 History allopurinoL [Zyloprim] 100 mg PO DAILY 01/27/19 08/20/23 History Apixaban [Eliquis] 2.5 mg PO BID 07/04/22 08/20/23 History Famotidine [Pepcid] 20 mg PO DAILY 07/04/22 08/20/23 History PARoxetine [Paxil] 20 mg PO HS 07/04/22 08/20/23 History Tamsulosin [Flomax] 0.8 mg PO HS 07/04/22 08/20/23 History Atorvastatin [Lipitor] 10 mg PO HS 08/20/23 08/20/23 History Allergies Allergy/AdvReac Type Severity Reaction Status Date / Time temazepam [From Restoril] AdvReac Hallucinati Verified 08/20/23 15:13 ons Physical Examination - Vital Signs Vital Signs: Vital Signs Pulse Resp BP Pulse Ox 08/20/23 18:26 55 L 18 122/90 97 08/20/23 17:26 62 18 153/85 99 08/20/23 15:10 62 18 150/68 96 08/20/23 13:18 60 18 157/64 98 Intake and Output 08/20/23 08/20/23 08/20/23 06:59 14:59 22:59 Other: Weight 77.111 kg Patient is an elderly male, in no acute distress. Patient is alert awake oriented to time place and person. Patient can name and repeat very well. Patient can read very well. No aphasia. Patient's speech is very mildly dysarthric. Attention, concentration and fund of knowledge is adequate. On cranial nerve examination, pupils are equal, round and reacting to light, visual mayfield are full on confrontation, with no neglect on double simultaneous stimulation. Extraocular muscles are intact with no nystagmus. Face is symmetric, tongue protrudes to the midline. Palatal elevation and sensation normal, hearing and shoulder shrug normal, facial sensation normal. On muscle strength testing, there is no pronator drift and the strength is normal in arms and legs distally and proximally, except right shoulder, which is weak from arthritis. Deep tendon reflexes are symmetric 1+ at the biceps, 1+ brachioradialis, 1 at the knees 1 ankles and plantars are questionably upgoing. Sensory to touch is equal with no neglect on double simultaneous stimulation. Cerebellar function showed tremulousness bilaterally, but no ataxia for [id number] testing. No dysdiadochokinesia. No ataxia for [id number] testing on either side. Tone and bulk of muscles normal. Gait deferred.. On general examination, there is no carotid bruit or murmur, S1-S2 audible. Chest is clear on consultation. Abdomen is soft nontender. No organomegaly, bowel sounds present. Peripheral pulses are present. No peripheral edema. Results - Laboratory Findings CBC and BMP: 08/20/23 13:46 08/20/23 18:52 Abnormal Lab Findings: Abnormal Labs 08/20/23 08/20/23 08/20/23 13:46 13:46 13:50 WBC 13.4 H Neutrophils # 7.9 H Potassium 6.1 H* Chloride 108 H Carbon Dioxide 17 L BUN 34 H Creatinine 1.58 H Glucose 120 H POC Glucose (mg/dL) 131 H Creatine Kinase 44 L Assessment and Plan Assessment: * Acute ischemic stroke manifesting with slurred speech, and possible mild aphasia. Patient's NIH stroke scale was 3 initially, but now appears to be just 1. * History of atrial fibrillation, currently on Eliquis, compliant with medication * Diabetes * Hyperlipidemia * Hypertension * CAD Plan: * MRI of the brain without contrast, evaluate for acute CVA * 2-D echo with bubble study to rule out PFO * CTA head and neck showed: No evidence of dissection of the cervical internal carotid arteries or vertebral arteries. No evidence of intracranial high- grade stenosis or intracranial aneurysm. Atherosclerotic plaque at the carotid bifurcations with at least 50-70% stenosis of the right and up to 50% stenosis on the left. * Carotid Doppler revealed no evidence for hemodynamically significant stenosis, antegrade flow in both vertebral arteries. * Fasting a.m. lipid panel * Hemoglobin A1c * Permissive hypertension for next 24-48 hours * Patient will be continued on Eliquis 2.5 mg twice a day for stroke prevention related to atrial fibrillation. Patient CTA showed atherosclerotic disease. Patient was given aspirin loading dose 324 mg in the ER and will be maintained on aspirin 81 mg daily. * Neuro checks. * Telemetry monitoring rule out any arrhythmia * PT, OT, speech therapy * DVT prophylaxis: Heparin 5000 units subcu every 8 hours * Neurology will continue to follow. Thank you for the consult.
[2023-08-21 07:33] LABS: Basophils # (A) 0.1 k/uL (0-0.2); Basophils % (A) 1 %; Eosinophils # (A) 0.2 k/uL (0-0.7); Eosinophils % (A) 2 %; HCT 35.7 % (39.0-53.0); HGB 12.1 gm/dL (13.0-17.5); Lymphocytes # (A) 4.1 k/uL (1.0-4.8); Lymphocytes % (A) 33 %; MCH 31.8 pg (25.0-35.0); MCHC 33.8 g/dL (31.0-37.0); Mean Platelet Volume 8.4; Monocytes # (A) 0.7 k/uL (0-1.0); Monocytes % (A) 6 %; Neutrophils % (A) 57 %; Platelet Count 157 k/uL (150-450); RDW 13.4 % (11.5-15.5); WBC 12.4 k/uL (3.8-10.6)
[2023-08-21 07:47] LABS: African American GFR (CKD) 44 (>60 ml/min/1.73 sqM); Anion Gap 12 mmol/L; Blood Urea Nitrogen 32 mg/dL (9-20); Calcium 8.6 mg/dL (8.4-10.2); Carbon Dioxide 19 mmol/L (22-30); Chloride 107 mmol/L (98-107); Glucose 89 mg/dL (74-99); Non-African American GFR(CKD) 38 (>60 ml/min/1.73 sqM); Potassium 4.6 mmol/L (3.5-5.1); Sodium 138 mmol/L (137-145)
[2023-08-21] MEDS: carvediloL 3.125 MG TAB PO SCH ×2 (09:51→16:48)
[2023-08-21] MEDS: ASPIRIN 81 MG PO SCH (09:51)
[2023-08-21] MEDS: APIXABAN 2.5 MG TABLET PO SCH ×2 (09:51→20:16)
[2023-08-21] MEDS: allopurinoL 100 MG TAB PO SCH (09:51)
[2023-08-21] MEDS: FAMOTIDINE 20 MG TAB PO SCH (09:51)
[2023-08-21 12:22] LABS: Glucose,Whole Blood 186 mg/dL (70-110)
[2023-08-21] MEDS ORDERED: DEXTROSE 50% SYRINGE 50 ML IVP PRN ×2 (12:25)
[2023-08-21 13:00] LABS: Chol/HDL Ratio 3.75 Ratio; LDL Cholesterol,Calculated 18.8 mg/dL (0.0-131.0)
--- NOTE | 2023-08-21 13:11 | MR ---
EXAMINATION TYPE: MR brain wo con DATE OF EXAM: 08/21/2023 1:05 PM COMPARISON: NONE HISTORY: Right leg weakness, aphasia. FINDINGS: The ventricles, basal cisterns and sulci overlying the cerebral convexities are moderately enlarged. There is evidence of mild periventricular white matter ischemic demyelination. Remote deep white matter insults are also noted. No acute edema is seen on diffusion weighted imaging. There is no evidence for midline shift or mass effect. Acute intracranial hemorrhage or extra-axial collection is not evident. The paranasal sinuses and mastoid air cells are well-aerated. IMPRESSION: Age-related atrophic and chronic small vessel ischemic change. No acute intracranial process at this time.
[2023-08-21] MEDS: INSULIN ASPART (NovoLOG) 100 UNIT/ML VIAL SQ SCH ×3 (13:21→20:16)
--- NOTE | 2023-08-21 14:04 | P.PN ---
Subjective Progress Note Date: 08/21/23 Hospital Course: 83-year-old male with history of chronic kidney disease, hypertension, dyslipidemia, gout presenting with strokelike symptoms. In the ED, temperature was within normal limits, pulse 60, respiratory rate 18, blood pressure 157/64, saturating at 98% on room air. WBC 13.4, potassium 6.1 with slight hemolysis, bicarb 17, BUN 34, creatinine 1.58 likely at baseline, glucose 120, CK 44, troponin 0.017. Chest x-ray independently interpreted, shows no acute process. Brain CT does not show any acute process. CTA head and neck does not show any acute process. Atherosclerotic plaque noted carotid bifurcation with at least 50-70% stenosis on the right and up to 50% stenosis on the left. Patient admitted for new strokelike symptoms. Unable to get TPA as patient is already on Eliquis. Carotid Dopplers does not show any significant stenosis. Neurology is consulted. MRI and echocardiogram pending. Subjective: Patient seen and examined at bedside. No acute events overnight. Pertinent positives and negatives as discussed above, a complete review of systems was performed and all other systems are negative. Vitals Signs Reviewed. General: nontoxic, no distress, appears at stated age Derm: warm, dry Head: atraumatic, normocephalic, symmetric Eyes: EOMI, no lid lag, anicteric sclera Mouth: no lip lesion, mucus membranes moist Cardiovascular: S1S2 reg, no murmur Lungs: CTA bilateral, no rhonchi, no rales , no accessory muscle use Abdominal: soft, nontender to palpation, no guarding, no appreciable organomegaly Ext: no gross muscle atrophy, no edema, no contractures Neuro: CN II-XI grossly intact, no focal neuro deficits, dysarthria Psych: Alert, oriented, appropriate affect Data Reviewed Today: Pertinent Labs: WBC 12.4, hemoglobin 12.1, potassium 4.6, creatinine 1.64, A1c 7.2, blood sugars range between 89-186, cholesterol 78, LDL 18, TSH 2.17, B12 256 Imaging: Brain MRI does not show any acute process Assessment and Plan: Patient is critically ill, prognosis guarded Acute CVA Hypertension Dyslipidemia Permanent Atrial fibrillation with slow ventricular rate Type 2 diabetes, with A1c 7.2 Chronic kidney disease stage III Non-anion gap metabolic acidosis improving Low vitamin B12 -Neurology following -Aspirin 81 mg daily, atorvastatin 40 mg daily -Continue Eliquis, and carvedilol -Telemetry -Neuro checks -Echocardiogram pending -Started on sliding scale insulin, monitor for hypoglycemia -B12 supplementation ordered -PT/OT/speech therapy Chronic kidney disease stage III Hyperkalemia, with hemolysis Metabolic acidosis -Repeat potassium ordered -Repeat BMP tomorrow Chronic: Gout DVT ppx: Eliquis Code status: Full code Anticipated discharge place: Pending clinical course Anticipated discharge time: Pending clinical course Objective - Vital Signs Vital signs: Vital Signs Temp 98.3 F 08/21/23 12:00 Pulse 47 L 08/21/23 12:00 Resp 18 08/21/23 12:00 BP 128/49 08/21/23 12:00 Pulse Ox 98 08/21/23 12:00 FiO2 Intake & Output 08/20/23 08/21/23 08/21/23 18:59 06:59 18:59 Weight 77.111 kg 77.111 kg - Labs CBC & Chem 7: 08/21/23 06:04 08/21/23 06:04 Labs: Abnormal Lab Results - Last 24 Hours (Table) 08/20/23 08/20/23 08/21/23 Range/Units 13:46 13:46 06:04 WBC 13.4 H (3.8-10.6) k/uL RBC (4.30-5.90) m/uL Hgb (13.0-17.5) gm/dL Hct (39.0-53.0) % Neutrophils # 7.9 H (1.3-7.7) k/uL Potassium 6.1 H* (3.5-5.1) mmol/L Chloride 108 H (98-107) mmol/L Carbon Dioxide 17 L (22-30) mmol/L BUN 34 H (9-20) mg/dL Creatinine 1.58 H (0.66-1.25) mg/dL Glucose 120 H (74-99) mg/dL POC Glucose (mg/dL) (70-110) mg/dL Hemoglobin A1c 7.2 H (<=6.0) % Creatine Kinase 44 L (55-170) U/L Triglycerides (0.00-149.00) mg/dL HDL Cholesterol (40.00-60.00) mg/dL 08/21/23 08/21/23 08/21/23 Range/Units 06:04 06:04 06:04 WBC 12.4 H (3.8-10.6) k/uL RBC 3.80 L (4.30-5.90) m/uL Hgb 12.1 L (13.0-17.5) gm/dL Hct 35.7 L (39.0-53.0) % Neutrophils # (1.3-7.7) k/uL Potassium (3.5-5.1) mmol/L Chloride (98-107) mmol/L Carbon Dioxide 19 L (22-30) mmol/L BUN 32 H (9-20) mg/dL Creatinine 1.64 H (0.66-1.25) mg/dL Glucose (74-99) mg/dL POC Glucose (mg/dL) (70-110) mg/dL Hemoglobin A1c (<=6.0) % Creatine Kinase (55-170) U/L Triglycerides 192.00 H (0.00-149.00) mg/dL HDL Cholesterol 20.80 L (40.00-60.00) mg/dL 08/21/23 Range/Units 12:18 WBC (3.8-10.6) k/uL RBC (4.30-5.90) m/uL Hgb (13.0-17.5) gm/dL Hct (39.0-53.0) % Neutrophils # (1.3-7.7) k/uL Potassium (3.5-5.1) mmol/L Chloride (98-107) mmol/L Carbon Dioxide (22-30) mmol/L BUN (9-20) mg/dL Creatinine (0.66-1.25) mg/dL Glucose (74-99) mg/dL POC Glucose (mg/dL) 186 H (70-110) mg/dL Hemoglobin A1c (<=6.0) % Creatine Kinase (55-170) U/L Triglycerides (0.00-149.00) mg/dL HDL Cholesterol (40.00-60.00) mg/dL
[2023-08-21] MEDS: CYANOCOBALAMIN 1,000 MCG/ML 1 ML VIAL IM SCH (15:20)
--- NOTE | 2023-08-21 15:59 | CA ---
Transthoracic Echo Report Name: Raymond Ibrahim Age: 83 Gender: M : 1940 Exam Date: 08/21/2023 08:07 Exam Location: [facility] Ht (in): 68 Wt (lb): 170 Ordering Physician: Mika Ferreira MD Attending/Referring Phys: Esthetician Facialist Amada Lemus RDCS Procedure CPT: Indications: stroke Cardiac Hx: Technical Quality: Technically difficult study Contrast 1: Definity Total Dose (mL): 1 Contrast 2: Agitated Saline Total Dose (mL): 1 MEASUREMENTS (Male / Female) Normal Values 2D ECHO LV Diastolic Diameter PLAX 5.6 cm 4.2 - 5.9 / 3.9 - 5.3 cm LV Systolic Diameter PLAX 4.6 cm IVS Diastolic Thickness 1.0 cm 0.6 - 1.0 / 0.6 - 0.9 cm LVPW Diastolic Thickness 1.0 cm 0.6 - 1.0 / 0.6 - 0.9 cm LV Relative Wall Thickness 0.4 RV Internal Dim ED PLAX 3.2 cm LA Systolic Diameter LX 4.1 cm 3.0 - 4.0 / 2.7 - 3.8 cm LA Volume 86.0 cm??? 18 - 58 / 22 - 52 cm??? LA Volume Index 44.4 cm???/m??? 16 - 28 cm???/m??? M-MODE Aortic Root Diameter MM 2.9 cm MV E Point Septal Separation 1.5 cm AV Cusp Separation MM 1.9 cm DOPPLER AV Peak Velocity 140.8 cm/s AV Peak Gradient 7.9 mmHg AI Peak Velocity 382.0 cm/s AI Peak Gradient 58.4 mmHg AI Pressure Half Time 810.4 ms MV Area PHT 3.7 cm??? MV Deceleration Time 171.6 ms TR Peak Velocity 319.8 cm/s TR Peak Gradient 40.9 mmHg Right Ventricular Systolic Press 43.9 mmHg FINDINGS Left Ventricle Left ventricular ejection fraction is estimated at 30-35 %. Left ventricular cavity size normal. Left ventricular wall thickness normal. Right Ventricle Normal right ventricular size. Mild pulmonary hypertension. Right Atrium Right atrium not well visualized. Negative agitated saline bubble study for right to left shunt. Left Atrium Severely increased left atrial volume. Mildly increased left atrial area. Mitral Valve Mitral valve thickened. Mitral annular calcification. Mild mitral regurgitation. Aortic Valve Trileaflet aortic valve. Aortic valve sclerosis. Mild aortic regurgitation. Tricuspid Valve Structurally normal tricuspid valve. Mild tricuspid regurgitation. Pulmonic Valve Structurally normal pulmonic valve. Trace to mild pulmonic regurgitation. Pericardium Posterior loculated pericardial effusion. Aorta Normal size aortic root and proximal ascending aorta. CONCLUSIONS Technically difficult study for interpretation The endocardium and intracardiac valves are poorly visualized The LV systolic function is 30-35% Previewed by: Dr. Clement Saeed MD (Electronically Signed) Final Date: 21 August 2023 15:58
[2023-08-21 16:24] LABS: Glucose,Whole Blood 152 mg/dL (70-110)
[2023-08-21] MEDS: SODIUM CHLORIDE 0.9% 1,000 ML IV SCH (18:52)
[2023-08-21 19:57] LABS: Glucose,Whole Blood 175 mg/dL (70-110)
[2023-08-21] MEDS: ATORVASTATIN 40 MG TAB PO SCH (20:16)
[2023-08-21] MEDS: PARoxetine 20 MG TAB PO SCH (20:16)
[2023-08-21] MEDS: TAMSULOSIN 0.4 MG CAP.ER.24H PO SCH (20:16)
[2023-08-22 06:02] LABS: Glucose,Whole Blood 126 mg/dL (70-110)
[2023-08-22] MEDS: INSULIN ASPART (NovoLOG) 100 UNIT/ML VIAL SQ SCH ×4 (06:09→20:26)
[2023-08-22] MEDS: carvediloL 3.125 MG TAB PO SCH ×2 (06:16→17:01)
[2023-08-22] MEDS: ASPIRIN 81 MG PO SCH (08:18)
[2023-08-22] MEDS: APIXABAN 2.5 MG TABLET PO SCH ×2 (08:18→20:26)
[2023-08-22] MEDS: FAMOTIDINE 20 MG TAB PO SCH (08:18)
[2023-08-22] MEDS: CYANOCOBALAMIN 1,000 MCG/ML 1 ML VIAL IM SCH (08:18)
[2023-08-22] MEDS: allopurinoL 100 MG TAB PO SCH (08:18)
[2023-08-22] MEDS: SPIRONOLACTONE 25 MG TAB PO SCH (09:03)
[2023-08-22] MEDS: LOSARTAN 25 MG TAB PO SCH (09:03)
[2023-08-22 11:29] LABS: Glucose,Whole Blood 150 mg/dL (70-110)
[2023-08-22 11:34] LABS: Basophils # (A) 0.1 k/uL (0-0.2); Basophils % (A) 1 %; Eosinophils # (A) 0.3 k/uL (0-0.7); Eosinophils % (A) 2 %; HCT 36.4 % (39.0-53.0); HGB 12.4 gm/dL (13.0-17.5); Lymphocytes # (A) 2.8 k/uL (1.0-4.8); Lymphocytes % (A) 24 %; MCH 31.9 pg (25.0-35.0); MCHC 34.2 g/dL (31.0-37.0); MCV 93.1 fL (80.0-100.0); Mean Platelet Volume 8.6; Monocytes # (A) 0.7 k/uL (0-1.0); Monocytes % (A) 6 %; Neutrophils # (A) 7.8 k/uL (1.3-7.7); Neutrophils % (A) 66 %; Platelet Count 157 k/uL (150-450); RDW 13.5 % (11.5-15.5); WBC 11.8 k/uL (3.8-10.6)
[2023-08-22 11:52] LABS: African American GFR (CKD) 44 (>60 ml/min/1.73 sqM); Anion Gap 11 mmol/L; Blood Urea Nitrogen 36 mg/dL (9-20); Calcium 8.7 mg/dL (8.4-10.2); Carbon Dioxide 22 mmol/L (22-30); Chloride 107 mmol/L (98-107); Glucose 125 mg/dL (74-99); Non-African American GFR(CKD) 38 (>60 ml/min/1.73 sqM); Potassium 4.4 mmol/L (3.5-5.1); Sodium 140 mmol/L (137-145)
--- NOTE | 2023-08-22 12:55 | P.PN ---
Subjective Progress Note Date: 08/22/23 Hospital Course: 83-year-old male with history of chronic kidney disease, hypertension, dyslipi demia, gout presenting with strokelike symptoms. In the ED, temperature was within normal limits, pulse 60, respiratory rate 18, blood pressure 157/64, saturating at 98% on room air. WBC 13.4, potassium 6.1 with slight hemolysis, bicarb 17, BUN 34, creatinine 1.58 likely at baseline, glucose 120, CK 44, troponin 0.017. Chest x-ray independently interpreted, shows no acute process. Brain CT does not show any acute process. CTA head and neck does not show any acute process. Atherosclerotic plaque noted carotid bifurcation with at least 50-70% stenosis on the right and up to 50% stenosis on the left. Patient admitted for new strokelike symptoms. Unable to get TPA as patient is already on Eliquis. Carotid Dopplers does not show any significant stenosis. Neurology is consulted. MRI brain did not show any acute process. Echocardiogram showed reduced EF at 30-35%, endocardium and intracardiac valves were poorly visualized. Subjective: Patient seen and examined at bedside. No acute events overnight. Patient still requiring significant assistance in order to get out of the bed. Pertinent positives and negatives as discussed above, a complete review of systems was performed and all other systems are negative. Vitals Signs Reviewed. General: nontoxic, no distress, appears at stated age Derm: warm, dry Head: atraumatic, normocephalic, symmetric Eyes: EOMI, no lid lag, anicteric sclera Mouth: no lip lesion, mucus membranes moist Cardiovascular: S1S2 reg, no murmur Lungs: CTA bilateral, no rhonchi, no rales , no accessory muscle use Abdominal: soft, nontender to palpation, no guarding, no appreciable organomegaly Ext: no gross muscle atrophy, no edema, no contractures Neuro: CN II-XI grossly intact, no focal neuro deficits, dysarthria Psych: Alert, oriented, appropriate affect Data Reviewed Today: Pertinent Labs: WBC 11.8, hemoglobin 12.4, creatinine 1.65, blood sugars range between 126-175 Imaging: Echocardiogram showed reduced EF at 30-35%, endocardium and intracardiac valves were poorly visualized. Assessment and Plan: Patient is critically ill, prognosis guarded Acute CVA Hypertension Dyslipidemia Permanent Atrial fibrillation with slow ventricular rate Type 2 diabetes, with A1c 7.2 Chronic kidney disease stage III Non-anion gap metabolic acidosis improving Low vitamin B12 Systolic cardiomyopathy, not in exacerbation -Neurology following -Aspirin 81 mg daily, atorvastatin 40 mg daily -Continue Eliquis, and carvedilol -Telemetry -Neuro checks -on sliding scale insulin, monitor for hypoglycemia -B12 supplementation -PT/OT/speech therapy -Unclear if systolic cardiomyopathy diagnosis is known, patient does seem to be on Dilantin directed medical therapy, continue Aldactone 12.5 mg daily and losartan 12.5 mg daily -Repeat BMP and magnesium tomorrow Resolved Hyperkalemia, with hemolysis Metabolic acidosis Chronic: Gout Depression BPH DVT ppx: Eliquis Code status: Full code Anticipated discharge place: Pending PT evaluation Anticipated discharge time: Pending clinical course Objective - Vital Signs Vital signs: Vital Signs Temp 97.9 F 08/22/23 08:15 Pulse 62 08/22/23 08:15 Resp 17 08/22/23 08:15 BP 109/62 08/22/23 08:15 Pulse Ox 99 08/22/23 08:15 FiO2 Intake & Output 08/21/23 08/22/23 08/22/23 18:59 06:59 18:59 Intake Total 118 240 Output Total 200 900 325 Balance -82 -900 -85 Weight 77.111 kg Intake: Oral 118 240 Output: Urine 200 900 325 Other: Voiding Method External Catheter External Catheter External Catheter # Bowel Movements 1 - Labs CBC & Chem 7: 08/22/23 10:36 08/22/23 10:36 Labs: Abnormal Lab Results - Last 24 Hours (Table) 08/21/23 08/21/23 08/21/23 Range/Units 06:04 16:20 19:56 WBC (3.8-10.6) k/uL RBC (4.30-5.90) m/uL Hgb (13.0-17.5) gm/dL Hct (39.0-53.0) % Neutrophils # (1.3-7.7) k/uL BUN (9-20) mg/dL Creatinine (0.66-1.25) mg/dL Glucose (74-99) mg/dL POC Glucose (mg/dL) 152 H 175 H (70-110) mg/dL Triglycerides 192.00 H (0.00-149.00) mg/dL HDL Cholesterol 20.80 L (40.00-60.00) mg/dL 08/22/23 08/22/23 08/22/23 Range/Units 06:00 10:36 10:36 WBC 11.8 H (3.8-10.6) k/uL RBC 3.90 L (4.30-5.90) m/uL Hgb 12.4 L (13.0-17.5) gm/dL Hct 36.4 L (39.0-53.0) % Neutrophils # 7.8 H (1.3-7.7) k/uL BUN 36 H (9-20) mg/dL Creatinine 1.65 H (0.66-1.25) mg/dL Glucose 125 H (74-99) mg/dL POC Glucose (mg/dL) 126 H (70-110) mg/dL Triglycerides (0.00-149.00) mg/dL HDL Cholesterol (40.00-60.00) mg/dL 08/22/23 Range/Units 11:25 WBC (3.8-10.6) k/uL RBC (4.30-5.90) m/uL Hgb (13.0-17.5) gm/dL Hct (39.0-53.0) % Neutrophils # (1.3-7.7) k/uL BUN (9-20) mg/dL Creatinine (0.66-1.25) mg/dL Glucose (74-99) mg/dL POC Glucose (mg/dL) 150 H (70-110) mg/dL Triglycerides (0.00-149.00) mg/dL HDL Cholesterol (40.00-60.00) mg/dL
[2023-08-22 16:25] LABS: Glucose,Whole Blood 163 mg/dL (70-110)
[2023-08-22] MEDS: SODIUM CHLORIDE 0.9% 1,000 ML IV SCH (16:50)
[2023-08-22 19:50] LABS: Glucose,Whole Blood 174 mg/dL (70-110)
[2023-08-22] MEDS: ATORVASTATIN 40 MG TAB PO SCH (20:25)
[2023-08-22] MEDS: TAMSULOSIN 0.4 MG CAP.ER.24H PO SCH (20:25)
[2023-08-22] MEDS: PARoxetine 20 MG TAB PO SCH (20:25)
[2023-08-23 06:15] LABS: Glucose,Whole Blood 143 mg/dL (70-110)
[2023-08-23] MEDS: INSULIN ASPART (NovoLOG) 100 UNIT/ML VIAL SQ SCH ×2 (06:16→12:04)
[2023-08-23] MEDS: carvediloL 3.125 MG TAB PO SCH (06:34)
[2023-08-23] MEDS: ASPIRIN 81 MG PO SCH (08:36)
[2023-08-23] MEDS: APIXABAN 2.5 MG TABLET PO SCH (08:36)
[2023-08-23] MEDS: LOSARTAN 25 MG TAB PO SCH (08:36)
[2023-08-23] MEDS: FAMOTIDINE 20 MG TAB PO SCH (08:36)
[2023-08-23] MEDS: allopurinoL 100 MG TAB PO SCH (08:36)
[2023-08-23] MEDS: SPIRONOLACTONE 25 MG TAB PO SCH (08:36)
[2023-08-23] MEDS: CYANOCOBALAMIN 1,000 MCG/ML 1 ML VIAL IM SCH (08:36)
[2023-08-23 09:50] LABS: Basophils # (A) 0.1 k/uL (0-0.2); Basophils % (A) 0 %; Eosinophils # (A) 0.5 k/uL (0-0.7); Eosinophils % (A) 3 %; HCT 39.2 % (39.0-53.0); HGB 13.1 gm/dL (13.0-17.5); Lymphocytes # (A) 3.1 k/uL (1.0-4.8); Lymphocytes % (A) 22 %; MCH 31.3 pg (25.0-35.0); MCHC 33.3 g/dL (31.0-37.0); Mean Platelet Volume 8.8; Monocytes # (A) 0.8 k/uL (0-1.0); Monocytes % (A) 6 %; Neutrophils # (A) 9.7 k/uL (1.3-7.7); Neutrophils % (A) 68 %; Platelet Count 166 k/uL (150-450); RBC 4.17 m/uL (4.30-5.90); RDW 13.9 % (11.5-15.5); WBC 14.3 k/uL (3.8-10.6)
[2023-08-23 09:56] VITALS: RESP 17; TEMP 97.5
[2023-08-23 10:09] LABS: African American GFR (CKD) 47 (>60 ml/min/1.73 sqM); Anion Gap 15 mmol/L; Blood Urea Nitrogen 36 mg/dL (9-20); Calcium 8.8 mg/dL (8.4-10.2); Carbon Dioxide 18 mmol/L (22-30); Chloride 107 mmol/L (98-107); Glucose 198 mg/dL (74-99); Magnesium 1.9 mg/dL (1.6-2.3); Non-African American GFR(CKD) 41 (>60 ml/min/1.73 sqM); Potassium 4.5 mmol/L (3.5-5.1); Sodium 140 mmol/L (137-145)
[2023-08-23 11:23] LABS: Glucose,Whole Blood 198 mg/dL (70-110)
[2023-08-23 12:29] VITALS: BP 127/71; PULSE 58
--- NOTE | 2023-08-23 13:19 | P.DS ---
Providers Date of admission: 08/20/23 14:44 Expected date of discharge: 08/23/23 Attending physician: Mika Ferreira MD Consults: 08/20/23 14:44 Consult Physician Routine Consulting Provider: Kandis Monge Consult Reason/Comments: cva Do you want consulting provider notified?: Yes Primary care physician: [facility] Hospital Course: Discharge Diagnosis: Acute CVA Hypertension Dyslipidemia Permanent Atrial fibrillation with slow ventricular rate Type 2 diabetes, with A1c 7.2 Chronic kidney disease stage III Non-anion gap metabolic acidosis Low vitamin B12 Systolic cardiomyopathy, not in exacerbation Hospital Course: 83-year-old male with history of chronic kidney disease, hypertension, dyslipidemia, gout, systolic cardiomyopathy, presenting with aphasia and dysarthria. In the ED, temperature was within normal limits, pulse 60, respiratory rate 18, blood pressure 157/64, saturating at 98% on room air. WBC 13.4, potassium 6.1 with slight hemolysis, bicarb 17, BUN 34, creatinine 1.58 likely at baseline, glucose 120, CK 44, troponin 0.017. Chest x-ray independently interpreted, shows no acute process. Brain CT does not show any acute process. CTA head and neck does not show any acute process. Atherosclerotic plaque noted carotid bifurcation with at least 50-70% stenosis on the right and up to 50% stenosis on the left. Patient admitted for new strokelike symptoms. Unable to get TPA as patient is already on Eliquis. Carotid Dopplers does not show any significant stenosis. Neurology is consulted. MRI brain did not show any acute process. Echocardiogram showed reduced EF at 30-35%, endocardium and intracardiac valves were poorly visualized. Patient able to ambulate. Aphasia improved, still has minor dysarthria at the time of discharge. Follow-up with PCP and neurology. Patient seen and examined at bedside. Vital signs reviewed and stable. General: nontoxic, no distress, appears at stated age Derm: warm, dry Head: atraumatic, normocephalic, symmetric Eyes: EOMI, no lid lag, anicteric sclera Mouth: no lip lesion, mucus membranes moist Cardiovascular: S1S2 reg, no murmur Lungs: CTA bilateral, no rhonchi, no rales , no accessory muscle use Abdominal: soft, nontender to palpation, no guarding, no appreciable organomegaly Ext: no gross muscle atrophy, no edema, no contractures Neuro: CN II-XI grossly intact, no focal neuro deficits, dysarthria Psych: Alert, oriented, appropriate affect A total of 36 minutes of time were spent preparing this complex discharge summary. Patient was discharged on 08/23/23 at 13:12. Patient Condition at Discharge: Stable Plan - Discharge Summary Discharge Rx Participant: No New Discharge Prescriptions: New Atorvastatin [Lipitor] 40 mg PO HS #60 tab Aspirin 81 mg PO DAILY #60 tab Cyanocobalamin (Vitamin B-12) [Vitamin B-12] 1,000 mcg PO DAILY #60 tablet metFORMIN HCL ER [Glucophage XR] 500 mg PO DAILY #60 tab Continue carvediloL [Coreg] 3.125 mg PO BID Losartan [Cozaar] 12.5 mg PO DAILY Spironolactone [Aldactone] 12.5 mg PO DAILY allopurinoL [Zyloprim] 100 mg PO DAILY Tamsulosin [Flomax] 0.8 mg PO HS Famotidine [Pepcid] 20 mg PO DAILY Apixaban [Eliquis] 2.5 mg PO BID PARoxetine [Paxil] 20 mg PO HS Discontinued Atorvastatin [Lipitor] 10 mg PO HS Discharge Medication List carvediloL [Coreg] 3.125 mg PO BID 08/14/16 [History] Losartan [Cozaar] 12.5 mg PO DAILY 11/17/16 [History] Spironolactone [Aldactone] 12.5 mg PO DAILY 11/17/16 [History] allopurinoL [Zyloprim] 100 mg PO DAILY 01/27/19 [History] Apixaban [Eliquis] 2.5 mg PO BID 07/04/22 [History] Famotidine [Pepcid] 20 mg PO DAILY 07/04/22 [History] PARoxetine [Paxil] 20 mg PO HS 07/04/22 [History] Tamsulosin [Flomax] 0.8 mg PO HS 07/04/22 [History] Aspirin 81 mg PO DAILY #60 tab 08/23/23 [Rx] Atorvastatin [Lipitor] 40 mg PO HS #60 tab 08/23/23 [Rx] Cyanocobalamin (Vitamin B-12) [Vitamin B-12] 1,000 mcg PO DAILY #60 tablet 08/23/23 [Rx] metFORMIN HCL ER [Glucophage XR] 500 mg PO DAILY #60 tab 08/23/23 [Rx] Follow up Appointment(s)/Referral(s): Zayra Hahn MD [REFERRING] - 1 Week None,Stated [REFERRING] - 1-2 days Patient Instructions/Handouts: Ischemic Stroke (GEN), Type 2 Diabetes Management for Adults (DC), What to Do if Your Blood Sugar is Low (DC) Activity/Diet/Wound Care/Special Instructions: Please see PCP and a neurologist. Discharge Disposition: HOME WITH HOME HEALTH SERVICES
--- NOTE | 2023-08-30 13:25 | P.PN ---
Subjective Progress Note Date: 08/21/23 Patient was seen for follow-up. Patient is laying in the bed, in no distress. Patient's speech is back to normal. Offers no new complaints. Objective - Vital Signs Vital signs: Vital Signs Temp 98.3 F 08/21/23 12:00 Pulse 58 L 08/21/23 15:20 Resp 17 08/21/23 15:20 BP 126/65 08/21/23 15:20 Pulse Ox 98 08/21/23 15:20 FiO2 Intake & Output 08/20/23 08/21/23 08/21/23 18:59 06:59 18:59 Weight 77.111 kg 77.111 kg Other: Voiding Method External Catheter - Exam Patient's examination remains unchanged. Patient has mild dysarthria. - Labs CBC & Chem 7: 08/23/23 09:16 08/23/23 09:16 Labs: Abnormal Lab Results - Last 24 Hours (Table) 08/21/23 08/21/23 08/21/23 Range/Units 06:04 06:04 06:04 WBC 12.4 H (3.8-10.6) k/uL RBC 3.80 L (4.30-5.90) m/uL Hgb 12.1 L (13.0-17.5) gm/dL Hct 35.7 L (39.0-53.0) % Carbon Dioxide (22-30) mmol/L BUN (9-20) mg/dL Creatinine (0.66-1.25) mg/dL POC Glucose (mg/dL) (70-110) mg/dL Hemoglobin A1c 7.2 H (<=6.0) % Triglycerides 192.00 H (0.00-149.00) mg/dL HDL Cholesterol 20.80 L (40.00-60.00) mg/dL 08/21/23 08/21/23 08/21/23 Range/Units 06:04 12:18 16:20 WBC (3.8-10.6) k/uL RBC (4.30-5.90) m/uL Hgb (13.0-17.5) gm/dL Hct (39.0-53.0) % Carbon Dioxide 19 L (22-30) mmol/L BUN 32 H (9-20) mg/dL Creatinine 1.64 H (0.66-1.25) mg/dL POC Glucose (mg/dL) 186 H 152 H (70-110) mg/dL Hemoglobin A1c (<=6.0) % Triglycerides (0.00-149.00) mg/dL HDL Cholesterol (40.00-60.00) mg/dL Assessment and Plan Assessment: * Acute ischemic stroke manifesting with slurred speech, and possible mild aphasia. Patient's NIH stroke scale was 3 initially, but now appears to be just 1. * History of atrial fibrillation, currently on Eliquis, compliant with med ication * Diabetes * Hyperlipidemia * Hypertension * B12 deficiency, mild * CAD Plan: * MRI of the brain without contrast, revealed age-related atrophy and chronic small vessel ischemic change. No acute intracranial process seen at this time. I personally reviewed MRI, I agree with the findings. * 2-D echo revealed that a difficult study. The endocardial an intracardiac valves are poorly visualized. Left ventricle systolic function is 30-35%. * CTA head and neck showed: No evidence of dissection of the cervical internal carotid arteries or vertebral arteries. No evidence of intracranial high- grade stenosis or intracranial aneurysm. Atherosclerotic plaque at the carotid bifurcations with at least 50-70% stenosis of the right and up to 50% stenosis on the left. * Carotid Doppler revealed no evidence for hemodynamically significant stenosis, antegrade flow in both vertebral arteries. * Fasting a.m. lipid panel with cholesterol 78, LDL 18, HDL 20, triglycerides 192. * Hemoglobin A1c 7.4. Recommend optimize control of diabetes to target A1c < 7.0 * Patient's B12 level is 256. Patient was given but 1 B12 injection 1000 g 1 dose and will be maintained on vitamin B12 1000 g orally daily. * Permissive hypertension for next 24-48 hours * Patient will be continued on Eliquis 2.5 mg twice a day for stroke prevention related to atrial fibrillation. Patient CTA showed atherosclerotic disease. Patient was given aspirin loading dose 324 mg in the ER and will be maintained on aspirin 81 mg daily (new since admission). * PT, OT, speech therapy has cleared patient. * Neurologically clear for discharge. Patient to follow up with neurologist outpatient.
== END 2023-08-23 14:36 | disposition home health service (06) | DRG 65 ==
LOC: EC 13:16 → 3SCARD 14:44
PROVIDERS: ADMIT Student in an Organized Health Care Education/Training Program; ATTEND Student in an Organized Health Care Education/Training Program
DX: I63.233 Cerebral infarction due to unspecified occlusion or stenosis of bilateral carotid arteries (principal); E87.20 Acidosis, unspecified; I42.8 Other cardiomyopathies; I48.21 Permanent atrial fibrillation; R47.01 Aphasia; E11.22 Type 2 diabetes mellitus with diabetic chronic kidney disease; N18.30 Chronic kidney disease, stage 3 unspecified; F32.A Depression, unspecified; I12.9 Hypertensive chronic kidney disease with stage 1 through stage 4 chronic kidney disease, or unspecified chronic kidney disease; E53.8 Deficiency of other specified B group vitamins; E78.5 Hyperlipidemia, unspecified; E87.5 Hyperkalemia; N40.1 Benign prostatic hyperplasia with lower urinary tract symptoms; I25.10 Atherosclerotic heart disease of native coronary artery without angina pectoris; M10.9 Gout, unspecified; R29.703 NIHSS score 3; R29.701 NIHSS score 1; R47.1 Dysarthria and anarthria; R29.810 Facial weakness; R32 Unspecified urinary incontinence; I25.2 Old myocardial infarction; Z79.01 Long term (current) use of anticoagulants; Z79.899 Other long term (current) drug therapy; Z88.8 Allergy status to other drugs, medicaments and biological substances; Z79.84 Long term (current) use of oral hypoglycemic drugs
CPT/HCPCS: 36415; 70450; 70496; 70498; 70551; 71046; 80048; 80053; 80061; 82550; 82607; 83036; 83735; 84132; 84443; 84484; 85025; 85610; 85730; 93005; 93306; 93880; 94760; 96360; 96361; 99291

== ENCOUNTER → 2024-12-08 | Outpatient (CLI) | payer MEDICARE ==
--- NOTE | 2024-12-08 15:35 | XR ---
EXAMINATION TYPE: XR Hip Complete RT DATE OF EXAM: 12/08/2024 3:28 PM COMPARISON: None CLINICAL INDICATION: Male, 84 years old with history of [id number] RT HIP PAIN; [facility], pain TECHNIQUE: XR Hip Complete RT; Frontal and lateral views FINDINGS: No evidence for acute process, joint dislocation or significant soft tissue swelling. Osteo phyte formation of the superior acetabulum of the hip. There is moderate joint space narrowing. Sever e atherosclerosis of the arterial vasculature. IMPRESSION: 1. No evidence for acute process. 2. Moderate hip osteoarthrosis. [facility], , 12/08/2024 3:33 PM
== END | disposition home or self-care (01) ==
LOC: RADXRYALE 15:07
PROVIDERS: ATTEND Family Medicine
DX: M16.11 Unilateral primary osteoarthritis, right hip (principal)
CPT/HCPCS: 73502

== ENCOUNTER → 2025-02-12 | Outpatient (CLI) | payer MEDICARE ==
--- NOTE | 2025-02-12 16:30 | XR ---
EXAMINATION TYPE: XR abdomen 2V DATE OF EXAM: 02/12/2025 CLINICAL INDICATION: Male, 84 years old with history of R197 DIARRHEA, pain TECHNIQUE: Supine and upright views of the abdomen are obtained. COMPARISON: Abdominal x-ray April 28, 2023. FINDINGS: Scattered gas is seen in non-distended small bowel loops. Gas and fecal material is seen in non-distended colon and rectum. Is moderate to severe degenerative change of both hips is present. Multilevel spurring and disc space narrowing of the thoracolumbar spine is redemonstrated. No free a ir is seen. Lung bases are clear. IMPRESSION: Overall nonobstructive bowel gas pattern is redemonstrated. [facility], , 02/12/2025 4:28 PM
== END | disposition home or self-care (01) ==
LOC: RADXRYALE 16:00
PROVIDERS: ATTEND Physician Assistant Medical
DX: R19.7 Diarrhea, unspecified (principal)
CPT/HCPCS: 74019